=== PATIENT | male | born 1965 | race Caucasian/White ===

== ENCOUNTER 2017-11-22 21:28 | Emergency (ER) | payer MEDICARE, SELFPAY ==
[2017-11-22 21:42] VITALS: BP 114/70; PULSE 68; RESP 18; TEMP 36.4; O2SAT 100; BMI 25.4
[2017-11-23 01:13] VITALS: BP 107/62; PULSE 62; RESP 16; TEMP 36.6; O2SAT 97
--- NOTE | 2017-11-23 01:24 | ED.BACK ---
HPI - Back Pain/Injury General Chief Complaint: Back Pain/Injury Stated Complaint: BACK PAIN, NUMBNESS Time Seen by Provider: 11/23/17 01:01 Source: patient Mode of arrival: ambulatory Limitations: no limitations History of Present Illness HPI Narrative: The patient is a 52-year-old male who has a prior history of a back injury about 1 year ago his where he fractured a couple vertebrae. His today he jumped off a 2 ft plantar landed on his heels. He instantly had pain into his right lumbar area. No midline tenderness. No loss of bowel or stool. He has no heel pain MD Complaint: back pain and back injury Related Data Home Medications Medication Instructions Recorded Confirmed insulin lispro [Humalog U-100 55 unit SLIDE #0 10/07/10 Insulin] Previous Rx's Medication Instructions Recorded cyclobenzaprine 5 mg PO TID PRN #10 tab 11/23/17 Allergies Allergy/AdvReac Type Severity Reaction Status Date / Time codeine [CODEINE] Allergy Unknown Verified 11/22/17 21:45 doxycycline [DOXYCYCLINE] Allergy Unknown Verified 11/22/17 21:45 omeprazole [OMEPRAZOLE] Allergy Unknown Verified 11/22/17 21:45 NOVALOG Allergy Unknown RASH AT Uncoded 11/22/17 21:45 INJECTION SIGHT Review of Systems Constitutional Denies chills, Denies fever(s), Denies lethargy and Denies weakness Cardiovascular Denies dyspnea and Denies dyspnea on exertion Respiratory Denies cough, Denies dyspnea, Denies dyspnea on exertion and Denies wheezing Gastrointestinal Gastrointestinal: Denies abdominal pain, Denies change in bowel habits, Denies diarrhea, Denies nausea and Denies vomiting Musculoskeletal Reports as per HPI and Reports back pain Integumentary/Breasts Denies pruritus, Denies erythema, Denies rash and Denies wounds Neurologic Denies weakness Allergic/Immunologic Denies wheezing PFSH Medical History Insulin dependent diabetes mellitus (Acute) Social History Smoking Status: Former smoker alcohol intake: never substance use type: does not use Exam Initial Vital Signs Initial Vital Signs: Vital Signs Temperature 97.6 F 11/22/17 21:42 Pulse Rate 68 11/22/17 21:42 Respiratory Rate 18 11/22/17 21:42 Blood Pressure 114/70 11/22/17 21:42 Pulse Oximetry 100 11/22/17 21:42 GENERAL: Well-appearing, well-nourished and in no acute distress. CARDIOVASCULAR: peripheral pulses in tact, cap refill <2 sec RESPIRATORY: No respiratory distress, speaks in full sentences without difficulty BACK: No vertebral tenderness no step-offs. He is tender in his right lumbar area lateral. EXTREMITIES: Normal range of motion, no clubbing or edema. Neurovascularly intact. No hip pain no pelvis pain pelvis is stable NEUROLOGICAL: Cranial nerves II through XII grossly intact. Normal gait and speech. SKIN: Warm, dry, no petechiae, no rashes or lesions. Course Orders Ordered: Discontinued Medications Cyclobenzaprine HCl (Flexeril 10 Mg Prepack) 1 bottle MISC SEEINSTR ONE Stop: 11/23/17 02:14 Last Admin: 11/23/17 02:18 Dose: 1 bottle Ketorolac Tromethamine (Toradol) 30 mg IV NOW ONE Stop: 11/23/17 01:26 Last Admin: 11/23/17 01:44 Dose: 30 mg Vital Signs - 8 hr 11/22/17 21:42 11/23/17 01:13 Temperature 97.6 F 97.9 F Pulse Rate 68 62 Respiratory Rate 18 16 Blood Pressure 114/70 Blood Pressure [Left Arm] 107/62 Pulse Oximetry 100 97 MDM - Back Pain/Injury MDM Narrative Medical decision making narrative: Patient is feeling better after Toradol. He has no midline back pain. On he jumped off a small height I do not suspect any his calcaneus fracture or vertebral fracture based upon mechanism and clinical presentation and signs and symptoms Discharge Plan Departure Patient Disposition: Home, Self-Care Clinical Impression: Back pain Discharge Date/Time: 11/23/17 02:14 Interventions: ED Discharge Assessment Last Done: 11/23/17 02:14 Instructions: Low Back Pain Activity Restrictions/Additional Instructions: *You have been diagnosed with low back *What to do: Increase activity as tolerated, mild activity is encouraged heating pad for 30 min *Continue to take medications as directed Flexeril every 8 hr as needed for muscle spasm but can cause drowsiness Ibuprofen/Motrin 600 mg every 6 hr if needed pain *Follow up with your primary care provider in 2-3 days *Return to ER if you should have numbness, tingling, weakness, loss of urine stool or any new, worsening or concerning symptoms Prescriptions: New cyclobenzaprine 5 mg tablet 5 mg PO TID PRN (Reason: muscle spasm) Qty: 10 RF: 0 No Action insulin lispro [Humalog U-100 Insulin] 100 UNIT/1 ML solution 55 unit SLIDE Qty: 0 RF: 0 Referrals: Darell Allison MD [Primary Care Provider] -
[2017-11-23] MEDS: KETOROLAC 60 MG/2 ML VIAL 30 MG IV (01:44)
[2017-11-23] MEDS: CYCLOBENZAPRINE 10 MG PREPACK 1 BOTTLE MISC (02:18)
== END 2017-11-23 02:14 | disposition home or self-care (01) ==
PROVIDERS: Emergency Provider Emergency Medicine; Family Provider Family Medicine; PCP Family Medicine
DX: M54.9 Dorsalgia, unspecified (principal)
CPT/HCPCS: 82962; 96374; 99282; 99284; J1885

== ENCOUNTER 2022-07-04 12:53 | Inpatient (IN) | payer OTHER, SELFPAY ==
[2022-07-04] VITALS (41 sets, daily range): BP systolic 108–153; BP diastolic 53–97; PULSE 59–92; RESP 15–44; TEMP 36.4–37.4; O2SAT 97–100; BMI 23.7; BMI 23.9
--- NOTE | 2022-07-04 13:09 | DI.RAD.S_ITS ---
PROCEDURE: XR CHEST 1V INDICATIONS: chest pain TECHNIQUE: One view of the chest was acquired. COMPARISON: [facility], , CHEST 1 VIEW, 07/28/2016, 20:50. FINDINGS: Surgical changes and devices: None. Lungs and pleura: Lungs are clear. No pleural effusions or pneumothorax. Mediastinum: Mediastinal contours appear normal. Heart size is normal. Bones and chest wall: No suspicious bony lesions. Overlying soft tissues appear unremarkable. IMPRESSION: No acute cardiopulmonary disease. Dictated by: Van Mcleod M.D. on 07/04/2022 at 15:13 Approved by: Van Mcleod M.D. on 07/04/2022 at 15:13
--- NOTE | 2022-07-04 13:52 | ED_ITS ---
HPI - General Adult General Chief complaint: Diabetic Problem Stated complaint: chest pain/ n&v/ high glucose Time Seen by Provider: 07/04/22 13:38 Source: patient and EMS Mode of arrival: EMS History of Present Illness HPI narrative: Patient is a 56-year-old male. History of insulin-dependent diabetes. Does have a continuous glucose monitor and also an insulin pump. Has been diabetic since 1998. Is here for evaluation of a fairly sudden onset of nausea and vomiting that started just before noon today. Also having chest discomfort that he describes in his left side which is more in the left upper quadrant. No recent travel. No changes medications. No diarrhea. Is having shortness of breath. Prior to my initial evaluation patient was getting up to go to the bathroom and had what appeared to be a syncopal episode. He had another episode afterwards where he again became unresponsive in. The pass out. There was no seizure-like activity. Related Data Home Medications Medication Instructions Recorded Confirmed insulin lispro 100 unit/mL 55 unit SLIDE ##0 10/07/10 subcutaneous solution (Humalog U-100 Insulin) Previous Rx's Medication Instructions Recorded cyclobenzaprine 5 mg tablet 5 mg PO TID PRN muscle spasm #10 11/23/17 tabs Allergies Allergy/AdvReac Type Severity Reaction Status Date / Time codeine [CODEINE] Allergy Unknown Verified 07/04/22 13:06 doxycycline [DOXYCYCLINE] Allergy Unknown Verified 07/04/22 13:06 insulin aspart Allergy Unknown Rash at Verified 07/04/22 13:20 [From Novolog U-100 Insulin injection aspart] site omeprazole [OMEPRAZOLE] Allergy Unknown Verified 07/04/22 13:06 Review of Systems Review of Systems ROS Unobtainable: All systems reviewed & are unremarkable except as noted in HPI and below Patient History Medical History Insulin dependent diabetes mellitus Social History Smoking Status: Former smoker alcohol intake: never substance use type: does not use Smoking Status: Former smoker alcohol intake frequency: holidays/special occasions only Substance Use Type: marijuana Exam Initial Vital Signs Initial Vital Signs: Vital Signs Temperature 97.5 F L 07/04/22 13:06 Pulse Rate 78 07/04/22 13:06 Respiratory Rate 22 07/04/22 13:06 Blood Pressure 148/69 H 07/04/22 13:06 Pulse Oximetry 100 07/04/22 13:06 Oxygen Delivery Method Room Air 07/04/22 13:06 Const General: diaphoretic and ill appearing [facility] Head: normal to inspection and normocephalic Resp Effort & Inspection: normal respiratory effort and tachypneic Auscultation: clear to auscultation bilaterally Cardio Rate: tachycardic Rhythm: regular rhythm GI Inspection: normal to inspection and non-distended Skin General: no rashes or lesions noted Neuro General: patient alert, patient awake and moves all extremities Extrem General: capillary refill normal and No edema Psych Appearance: disheveled Scores GCS [place] coma scale eye opening: Spontaneous [place] coma scale verbal response: Confused [place] coma scale motor response: Obey commands [place] coma scale total score: 14 Course Orders Ordered: ED Orders 07/04/22 12:55 VBG [Venous Blood Gas] Stat 07/04/22 13:08 Consult to [facility] [place] - [employer] Stat 07/04/22 13:09 XR chest 1V Stat 07/04/22 13:50 Complete Blood Count AUTO DIFF Stat Comprehensive Metabolic Panel Stat Ketones (Beta-Hydroxybutyrate) Stat Lipase Stat Magnesium Stat Phosphorous Stat Troponin & CK Cardiac Panel Stat 07/04/22 13:53 EKG-12 Lead Stat 07/04/22 14:15 COVID19 -Nasal RAPID Stat 07/04/22 14:30 Blood Culture Stat 07/04/22 14:40 Urinalysis and Microscopic Stat Urine Culture Stat Urine Drug Screen, Rapid Stat 07/04/22 15:12 Arterial Blood Gas Stat 07/04/22 16:28 ETOH [Ethanol (ETOH)] Stat Troponin I Stat 07/04/22 16:50 CMP [Comprehensive Metabolic Panel] Stat Acetaminophen (Acetaminophen 325 Mg Tablet) 650 mg PO Q6H PRN PRN Reason: Fever/Mild Pain (1-3) Sodium Chloride (Normal Saline 0.9%) 1,000 mls @ 250 mls/hr IV CONT LYDIA Last Infusion: 07/04/22 18:49 Dose: 0 mls/hr Documented By: Admin: 07/04/22 15:00 Dose: 250 mls/hr Documented By: JAQUELIN INSULIN DRIP PREMIX (Myxredlin Drip Premix) 100 unit in 100 mls @ 6 mls/hr IV TITRATE LYDIA; Protocol Last Titration: 07/04/22 15:44 Dose: 12 mls/hr, 12 mls/hr Documented By: JAQUELIN Co-signed By: ROSELINE Admin: 07/04/22 15:26 Dose: 6 mls/hr, 6 mls/hr Documented By: JAQUELIN Co-signed By: JOE Ceftriaxone Sodium 1,000 mg/ (Sodium Chloride) 100 mls @ 200 mls/hr IV Q24H LYDIA Stop: 07/07/22 17:59 Ibuprofen (Ibuprofen 600 Mg Tablet) 800 mg PO Q6H PRN PRN Reason: Fever/Mild Pain (1-3) Melatonin (Melatonin 3 Mg Tablet) 6 mg PO BEDTIME PRN PRN Reason: Insomnia Metronidazole (Metronidazole 500 Mg Tablet) 500 mg PO TID LYDIA Naloxone HCl (Naloxone 0.4 Mg/Ml Vial) 0.2 mg IV Q2MIN PRN PRN Reason: Opiate Reversal Ondansetron HCl (Ondansetron 4 Mg Odt) 4 mg SL NOW PRN PRN Reason: Nausea And Vomiting Ondansetron HCl (Ondansetron 4 Mg/2 Ml Inj) 4 mg IV NOW PRN PRN Reason: Nausea And Vomiting Last Admin: 07/04/22 14:06 Dose: 4 mg Documented By: JAQUELIN Polyethylene Glycol (Polyethylene Glycol 3350 17 Gm Powd.Pack) 17 gm PO DAILY PRN PRN Reason: Constipation Sennosides (Sennosides 8.6 Mg Tablet) 8.6 mg PO BID PRN PRN Reason: Constipation Discontinued Medications Sodium Chloride (Normal Saline 0.9%) 1,000 mls @ 1,000 mls/hr IV BOLUS ONE Stop: 07/04/22 14:48 Last Infusion: 07/04/22 15:04 Dose: 0 mls/hr Documented By: Admin: 07/04/22 14:07 Dose: 1,000 mls/hr Documented By: JAQUELIN Metoclopramide HCl (Metoclopramide 10 Mg/2 Ml Inj) 10 mg IV NOW ONE Stop: 07/04/22 14:53 Last Admin: 07/04/22 15:00 Dose: 10 mg Documented By: JAQUELIN Vital Signs Vital signs: Vital Signs - 8 hr 07/04/22 13:06 07/04/22 13:37 07/04/22 13:37 Temperature 97.5 F L Pulse Rate 78 76 Respiratory Rate 22 15 Blood Pressure 148/69 H 129/63 Pulse Oximetry 100 100 Oxygen Delivery Method Room Air 07/04/22 13:40 07/04/22 13:40 07/04/22 13:45 Temperature Pulse Rate 75 Respiratory Rate 28 H Blood Pressure 139/63 141/97 H Pulse Oximetry 100 Oxygen Delivery Method 07/04/22 13:45 07/04/22 13:55 07/04/22 13:55 Temperature Pulse Rate 81 74 Respiratory Rate 44 H 27 H Blood Pressure 142/87 H Pulse Oximetry 99 100 Oxygen Delivery Method 07/04/22 14:00 07/04/22 14:00 07/04/22 14:05 Temperature Pulse Rate 75 Respiratory Rate 29 H Blood Pressure 140/61 108/53 L Pulse Oximetry 100 Oxygen Delivery Method 07/04/22 14:05 07/04/22 14:10 07/04/22 14:10 Temperature Pulse Rate 74 76 Respiratory Rate 27 H 28 H Blood Pressure 123/62 Pulse Oximetry 98 100 Oxygen Delivery Method 07/04/22 14:15 07/04/22 14:15 07/04/22 14:20 Temperature Pulse Rate 73 77 Respiratory Rate 28 H 38 H Blood Pressure 128/58 L Pulse Oximetry 100 100 Oxygen Delivery Method Room Air 07/04/22 14:20 07/04/22 14:28 07/04/22 14:28 Temperature Pulse Rate 79 Respiratory Rate 33 H Blood Pressure 144/58 H 148/67 H Pulse Oximetry 100 Oxygen Delivery Method 07/04/22 14:30 07/04/22 14:41 07/04/22 14:41 Temperature Pulse Rate 76 77 Respiratory Rate 41 H 19 Blood Pressure 121/58 L Pulse Oximetry 100 100 Oxygen Delivery Method 07/04/22 14:45 07/04/22 14:45 07/04/22 15:00 Temperature Pulse Rate 78 Respiratory Rate 20 Blood Pressure 133/61 152/61 H Pulse Oximetry 100 Oxygen Delivery Method 07/04/22 15:00 07/04/22 15:30 07/04/22 16:00 Temperature Pulse Rate 92 H 80 77 Respiratory Rate 41 H 28 H 27 H Blood Pressure Pulse Oximetry 100 100 99 Oxygen Delivery Method 07/04/22 16:30 07/04/22 17:00 07/04/22 17:30 Temperature Pulse Rate 83 76 72 Respiratory Rate 18 19 18 Blood Pressure Pulse Oximetry 97 98 Oxygen Delivery Method Medical Decision Making Medical Records Medical records reviewed: Yes I reviewed the patient's medical records. Lab Data Lab results reviewed: Yes I reviewed the patient's lab results. 07/04/22 13:50 07/04/22 16:50 Labs: Lab Results 07/04/22 07/04/22 07/04/22 Range/Units 12:55 13:50 13:50 WBC 11.2 H (4.5-11.0) X10^3/uL RBC 5.02 (4.5-5.9) X10^6/uL Hgb 14.9 (13.5-17.5) g/dL Hct 44.7 (41-53) % MCV 89.1 (80-100) fL MCH 29.7 (26-34) PG MCHC 33.3 (30-36) % RDW 13.3 (11.6-14.8) % Plt Count 243 (150-400) X10^3/uL Neut % (Auto) 90.3 H (50-75) % Lymph % (Auto) 6.4 L (25-40) % [place] % (Auto) 2.7 L (3-14) % Eos % (Auto) 0.1 L (2-4) % Baso % (Auto) 0.5 (0-2) % Neut # (Auto) 99925 H (7082-9421) /uL Lymph # (Auto) 700 L (0399-8094) /uL [place] # (Auto) 300 (0-900) /uL Eos # (Auto) 0 (0-450) /uL Baso # (Auto) 100 (0-100) /uL ABG pH (7.35-7.45) ABG pCO2 (35-45) mmHg ABG pO2 (80-100) mmHg ABG HCO3 (23-27) mmol/L ABG Total CO2 (23-27) mmol/L ABG O2 Saturation (95-100) % ABG Base Excess (-2-3) mmol/L VBG pH 7.35 (7.33-7.43) VBG pCO2 26.7 L (45-50) mmHg VBG pO2 26 L (35-45) mmHg VBG HCO3 15 L (24-28) mmol/L VBG Total CO2 16 L (24-29) mmol/L VBG O2 Saturation 46 L (70-75) % VBG Base Excess -11.0 L (0-4) mmol/L FiO2 21 Sodium 132 L (137-145) mmol/L Potassium 5.0 (3.4-5.1) mmol/L Chloride 94 L (98-107) mmol/L Carbon Dioxide 12 L (22-32) mmol/L BUN 23 H (9-20) mg/dL Creatinine 1.15 (0.66-1.25) mg/dL Estimated GFR > 60 (>60) mL/min BUN/Creatinine Ratio 20.0 (6-22) Glucose 731 H* (70-100) mg/dL Hemoglobin A1c (4.0-6.0) % Calcium 9.7 (8.4-10.2) mg/dL Phosphorus (2.5-4.5) mg/dL Magnesium 1.8 (1.6-2.3) mg/dL Total Bilirubin 2.7 H (0.2-1.3) mg/dL AST 27 (17-59) IU/L ALT 44 (<50) IU/L Alkaline Phosphatase 104 (38-126) U/L Total Creatine Kinase 57 (55-170) U/L CK-MB (CK-2) TNP CK-MB (CK-2) Rel Index TNP Troponin I < 0.012 (0.01-0.034) ng/mL Total Protein 7.8 (6.3-8.2) g/dL Albumin 4.7 (3.5-5.0) g/dL Globulin 3.1 (1.7-4.1) g/dL Albumin/Globulin Ratio 1.5 (1.0-2.8) Lipase 62 (23-300) U/L TSH (0.47-4.68) uIU/mL Urine Color Urine Appearance Urine pH (4.5-8.0) Ur Specific [place] (1.000-1.035) Urine Protein (Negative) Urine Glucose (UA) (Negative) g/dL Urine Ketones (NEGATIVE) Urine Occult Blood (Negative) Urine Nitrate (Negative) Urine Bilirubin (NEGATIVE) Urine Urobilinogen (0.2) E.U./dL Ur Leukocyte Esterase (NEGATIVE) Urine RBC (0-5/HPF) Urine WBC (0-5/HPF) Amorphous Sediment Urine Bacteria (None) Ur Culture Indicated? U Opiates 300ng/mL cut (Negative) Ur Oxycodone Screen (Negative) Urine Methadone Screen (Negative) Ur Barbiturates Screen (Negative) U Tricyclic Antidepress (Negative) Ur Phencyclidine Scrn (Negative) Ur Amphetamines Screen (Negative) U Methamphetamines Scrn (Negative) Ur MDMA Scrn (Ecstasy) (Negative) U Benzodiazepines Scrn (Negative) Urine Cocaine Screen (Negative) U Marijuana (THC) Screen (Negative) Ethyl Alcohol ( - 10) mg/dL Ketones (<0.27) mmol/L SARS-CoV-2 (PCR) (Negative) 07/04/22 07/04/22 07/04/22 Range/Units 13:50 13:50 13:50 WBC (4.5-11.0) X10^3/uL RBC (4.5-5.9) X10^6/uL Hgb (13.5-17.5) g/dL Hct (41-53) % MCV (80-100) fL MCH (26-34) PG MCHC (30-36) % RDW (11.6-14.8) % Plt Count (150-400) X10^3/uL Neut % (Auto) (50-75) % Lymph % (Auto) (25-40) % [place] % (Auto) (3-14) % Eos % (Auto) (2-4) % Baso % (Auto) (0-2) % Neut # (Auto) (2778-7158) /uL Lymph # (Auto) (0295-9959) /uL [place] # (Auto) (0-900) /uL Eos # (Auto) (0-450) /uL Baso # (Auto) (0-100) /uL ABG pH (7.35-7.45) ABG pCO2 (35-45) mmHg ABG pO2 (80-100) mmHg ABG HCO3 (23-27) mmol/L ABG Total CO2 (23-27) mmol/L ABG O2 Saturation (95-100) % ABG Base Excess (-2-3) mmol/L VBG pH (7.33-7.43) VBG pCO2 (45-50) mmHg VBG pO2 (35-45) mmHg VBG HCO3 (24-28) mmol/L VBG Total CO2 (24-29) mmol/L VBG O2 Saturation (70-75) % VBG Base Excess (0-4) mmol/L FiO2 Sodium (137-145) mmol/L Potassium (3.4-5.1) mmol/L Chloride (98-107) mmol/L Carbon Dioxide (22-32) mmol/L BUN (9-20) mg/dL Creatinine (0.66-1.25) mg/dL Estimated GFR (>60) mL/min BUN/Creatinine Ratio (6-22) Glucose (70-100) mg/dL Hemoglobin A1c 9.5 H (4.0-6.0) % Calcium (8.4-10.2) mg/dL Phosphorus 3.6 (2.5-4.5) mg/dL Magnesium (1.6-2.3) mg/dL Total Bilirubin (0.2-1.3) mg/dL AST (17-59) IU/L ALT (<50) IU/L Alkaline Phosphatase (38-126) U/L Total Creatine Kinase (55-170) U/L CK-MB (CK-2) CK-MB (CK-2) Rel Index Troponin I (0.01-0.034) ng/mL Total Protein (6.3-8.2) g/dL Albumin (3.5-5.0) g/dL Globulin (1.7-4.1) g/dL Albumin/Globulin Ratio (1.0-2.8) Lipase (23-300) U/L TSH 2.80 (0.47-4.68) uIU/mL Urine Color Urine Appearance Urine pH (4.5-8.0) Ur Specific [place] (1.000-1.035) Urine Protein (Negative) Urine Glucose (UA) (Negative) g/dL Urine Ketones (NEGATIVE) Urine Occult Blood (Negative) Urine Nitrate (Negative) Urine Bilirubin (NEGATIVE) Urine Urobilinogen (0.2) E.U./dL Ur Leukocyte Esterase (NEGATIVE) Urine RBC (0-5/HPF) Urine WBC (0-5/HPF) Amorphous Sediment Urine Bacteria (None) Ur Culture Indicated? U Opiates 300ng/mL cut (Negative) Ur Oxycodone Screen (Negative) Urine Methadone Screen (Negative) Ur Barbiturates Screen (Negative) U Tricyclic Antidepress (Negative) Ur Phencyclidine Scrn (Negative) Ur Amphetamines Screen (Negative) U Methamphetamines Scrn (Negative) Ur MDMA Scrn (Ecstasy) (Negative) U Benzodiazepines Scrn (Negative) Urine Cocaine Screen (Negative) U Marijuana (THC) Screen (Negative) Ethyl Alcohol ( - 10) mg/dL Ketones 6.46 H (<0.27) mmol/L SARS-CoV-2 (PCR) (Negative) 07/04/22 07/04/22 07/04/22 Range/Units 14:15 14:40 14:40 WBC (4.5-11.0) X10^3/uL RBC (4.5-5.9) X10^6/uL Hgb (13.5-17.5) g/dL Hct (41-53) % MCV (80-100) fL MCH (26-34) PG MCHC (30-36) % RDW (11.6-14.8) % Plt Count (150-400) X10^3/uL Neut % (Auto) (50-75) % Lymph % (Auto) (25-40) % [place] % (Auto) (3-14) % Eos % (Auto) (2-4) % Baso % (Auto) (0-2) % Neut # (Auto) (9301-4520) /uL Lymph # (Auto) (8666-1657) /uL [place] # (Auto) (0-900) /uL Eos # (Auto) (0-450) /uL Baso # (Auto) (0-100) /uL ABG pH (7.35-7.45) ABG pCO2 (35-45) mmHg ABG pO2 (80-100) mmHg ABG HCO3 (23-27) mmol/L ABG Total CO2 (23-27) mmol/L ABG O2 Saturation (95-100) % ABG Base Excess (-2-3) mmol/L VBG pH (7.33-7.43) VBG pCO2 (45-50) mmHg VBG pO2 (35-45) mmHg VBG HCO3 (24-28) mmol/L VBG Total CO2 (24-29) mmol/L VBG O2 Saturation (70-75) % VBG Base Excess (0-4) mmol/L FiO2 Sodium (137-145) mmol/L Potassium (3.4-5.1) mmol/L Chloride (98-107) mmol/L Carbon Dioxide (22-32) mmol/L BUN (9-20) mg/dL Creatinine (0.66-1.25) mg/dL Estimated GFR (>60) mL/min BUN/Creatinine Ratio (6-22) Glucose (70-100) mg/dL Hemoglobin A1c (4.0-6.0) % Calcium (8.4-10.2) mg/dL Phosphorus (2.5-4.5) mg/dL Magnesium (1.6-2.3) mg/dL Total Bilirubin (0.2-1.3) mg/dL AST (17-59) IU/L ALT (<50) IU/L Alkaline Phosphatase (38-126) U/L Total Creatine Kinase (55-170) U/L CK-MB (CK-2) CK-MB (CK-2) Rel Index Troponin I (0.01-0.034) ng/mL Total Protein (6.3-8.2) g/dL Albumin (3.5-5.0) g/dL Globulin (1.7-4.1) g/dL Albumin/Globulin Ratio (1.0-2.8) Lipase (23-300) U/L TSH (0.47-4.68) uIU/mL Urine Color Yellow Urine Appearance Clear Urine pH 6.0 (4.5-8.0) Ur Specific [place] 1.010 (1.000-1.035) Urine Protein Negative (Negative) Urine Glucose (UA) 3+ H (Negative) g/dL Urine Ketones 3+ H (NEGATIVE) Urine Occult Blood Negative (Negative) Urine Nitrate Negative (Negative) Urine Bilirubin Negative (NEGATIVE) Urine Urobilinogen 0.2 (0.2) E.U./dL Ur Leukocyte Esterase Negative (NEGATIVE) Urine RBC None seen (0-5/HPF) Urine WBC None seen (0-5/HPF) Amorphous Sediment 1+ Urine Bacteria None seen (None) Ur Culture Indicated? Cult not indicated U Opiates 300ng/mL cut Negative (Negative) Ur Oxycodone Screen Negative (Negative) Urine Methadone Screen Negative (Negative) Ur Barbiturates Screen Negative (Negative) U Tricyclic Antidepress Negative (Negative) Ur Phencyclidine Scrn Negative (Negative) Ur Amphetamines Screen Negative (Negative) U Methamphetamines Scrn Negative (Negative) Ur MDMA Scrn (Ecstasy) Negative (Negative) U Benzodiazepines Scrn Negative (Negative) Urine Cocaine Screen Negative (Negative) U Marijuana (THC) Screen Positive H (Negative) Ethyl Alcohol ( - 10) mg/dL Ketones (<0.27) mmol/L SARS-CoV-2 (PCR) Negative (Negative) 07/04/22 07/04/22 07/04/22 Range/Units 15:12 16:28 16:50 WBC (4.5-11.0) X10^3/uL RBC (4.5-5.9) X10^6/uL Hgb (13.5-17.5) g/dL Hct (41-53) % MCV (80-100) fL MCH (26-34) PG MCHC (30-36) % RDW (11.6-14.8) % Plt Count (150-400) X10^3/uL Neut % (Auto) (50-75) % Lymph % (Auto) (25-40) % [place] % (Auto) (3-14) % Eos % (Auto) (2-4) % Baso % (Auto) (0-2) % Neut # (Auto) (8837-6789) /uL Lymph # (Auto) (0692-0345) /uL [place] # (Auto) (0-900) /uL Eos # (Auto) (0-450) /uL Baso # (Auto) (0-100) /uL ABG pH 7.27 L* (7.35-7.45) ABG pCO2 24.9 L* (35-45) mmHg ABG pO2 99 (80-100) mmHg ABG HCO3 12 L (23-27) mmol/L ABG Total CO2 12 L (23-27) mmol/L ABG O2 Saturation 97 (95-100) % ABG Base Excess -15.0 L (-2-3) mmol/L VBG pH (7.33-7.43) VBG pCO2 (45-50) mmHg VBG pO2 (35-45) mmHg VBG HCO3 (24-28) mmol/L VBG Total CO2 (24-29) mmol/L VBG O2 Saturation (70-75) % VBG Base Excess (0-4) mmol/L FiO2 21 Sodium 136 L (137-145) mmol/L Potassium 4.4 (3.4-5.1) mmol/L Chloride 103 (98-107) mmol/L Carbon Dioxide 8 L* (22-32) mmol/L BUN 24 H (9-20) mg/dL Creatinine 1.12 (0.66-1.25) mg/dL Estimated GFR > 60 (>60) mL/min BUN/Creatinine Ratio 21.4 (6-22) Glucose 532 H* (70-100) mg/dL Hemoglobin A1c (4.0-6.0) % Calcium 8.8 (8.4-10.2) mg/dL Phosphorus (2.5-4.5) mg/dL Magnesium (1.6-2.3) mg/dL Total Bilirubin 2.2 H (0.2-1.3) mg/dL AST 30 (17-59) IU/L ALT 40 (<50) IU/L Alkaline Phosphatase 79 (38-126) U/L Total Creatine Kinase (55-170) U/L CK-MB (CK-2) CK-MB (CK-2) Rel Index Troponin I < 0.012 (0.01-0.034) ng/mL Total Protein 6.9 (6.3-8.2) g/dL Albumin 4.1 (3.5-5.0) g/dL Globulin 2.8 (1.7-4.1) g/dL Albumin/Globulin Ratio 1.5 (1.0-2.8) Lipase (23-300) U/L TSH (0.47-4.68) uIU/mL Urine Color Urine Appearance Urine pH (4.5-8.0) Ur Specific [place] (1.000-1.035) Urine Protein (Negative) Urine Glucose (UA) (Negative) g/dL Urine Ketones (NEGATIVE) Urine Occult Blood (Negative) Urine Nitrate (Negative) Urine Bilirubin (NEGATIVE) Urine Urobilinogen (0.2) E.U./dL Ur Leukocyte Esterase (NEGATIVE) Urine RBC (0-5/HPF) Urine WBC (0-5/HPF) Amorphous Sediment Urine Bacteria (None) Ur Culture Indicated? U Opiates 300ng/mL cut (Negative) Ur Oxycodone Screen (Negative) Urine Methadone Screen (Negative) Ur Barbiturates Screen (Negative) U Tricyclic Antidepress (Negative) Ur Phencyclidine Scrn (Negative) Ur Amphetamines Screen (Negative) U Methamphetamines Scrn (Negative) Ur MDMA Scrn (Ecstasy) (Negative) U Benzodiazepines Scrn (Negative) Urine Cocaine Screen (Negative) U Marijuana (THC) Screen (Negative) Ethyl Alcohol < 10 ( - 10) mg/dL Ketones (<0.27) mmol/L SARS-CoV-2 (PCR) (Negative) Point of Care Testing Glucose POC 367 Point of care testing: Point of Care Testing Glucose POC 367 Imaging Data Chest x-ray: Radiologist's Impression: PROCEDURE:? XR CHEST 1V ? INDICATIONS:? chest pain ? TECHNIQUE:? One view of the chest was acquired.? ? COMPARISON:? [facility], , CHEST 1 VIEW, 07/28/2016, 20:50. ? FINDINGS:? ? Surgical changes and devices:? None.? ? Lungs and pleura:? Lungs are clear.? No pleural effusions or pneumothorax.? ? Mediastinum:? Mediastinal contours appear normal.? Heart size is normal.? ? Bones and chest wall:? No suspicious bony lesions.? Overlying soft tissues appear unremarkable.? ? IMPRESSION:? No acute cardiopulmonary disease. ECG Data Attestation: I personally reviewed and interpreted this ECG as follows: Interpretation: Initial EKG Sinus rhythm Ventricular rate is 73 Normal axis Normal QRS QTC [address] T wave changes Repeat EKG Sinus rhythm Ventricular rate is 76 Normal axis Normal QRS QTC [address] T wave changes Relatively unchanged from initial EKG MDM Narrative Medical decision making narrative: Patient is in DKA with an anion gap of 26. Hyperglycemic. His vomiting. No specific source of infection found. The 2 episodes where he became syncopal here in the emergency department is more consistent with a vasovagal syncope. Low suspicion for CVA. His troponins are negative x2. Patient does not have pancreatitis. Has a soft abdomen. Patient was started on fluids and then insulin drip. Patient does require admission to the hospital for his presenting symptoms. Discussed case with Dr. Stevenson on-call for Internal Medicine who will admit. Critical Care Time Critical Care Time Critical Care Time: Yes Total Critical Care Time: 40 Attestation: The high probability of a clinically significant, sudden or life threatening deterioration of the [endocrine, respiratory, cardiovascular] system(s) required my full and direct attention, intervention and personal management. The aggregate critical care time was [40] minutes. This time is in addition to time spent performing reported procedures but includes the following: [x] Data Review and interpretation [x] Patient assessment and monitoring of vital signs [x] Documentation x[] Medication orders and management Discharge Plan Departure Patient Disposition: Home Clinical Impression: Heart failure, Hypoxia, Back pain
[2022-07-04 14:02] LABS: Add Manual Diff / Slide Review NO; Basophils Absolute Auto 100 /uL (0-100); Basophils Percent Auto 0.5 % (0-2); Eosinophils Absolute Auto 0 /uL (0-450); Eosinophils Percent Auto 0.1 % (2-4); Hematocrit 44.7 % (41-53); Hemoglobin 14.9 g/dL (13.5-17.5); Lymphocytes Absolute Auto 700 /uL (1100-4500); Lymphocytes Percent Auto 6.4 % (25-40); Mean Corpuscular HGB Conc 33.3 % (30-36); Mean Corpuscular Hemoglobin 29.7 PG (26-34); Mean Corpuscular Volume 89.1 fL (80-100); Monocytes Absolute Auto 300 /uL (0-900); Monocytes Percent Auto 2.7 % (3-14); Neutrophils Absolute Auto 10100 /uL (1500-7000); Neutrophils Percent Auto 90.3 % (50-75); Platelet Count 243 X10^3/uL (150-400); Red Blood Cell Count 5.02 X10^6/uL (4.5-5.9); Red Cell Distribution Width 13.3 % (11.6-14.8); White Blood Cell Count 11.2 X10^3/uL (4.5-11.0)
[2022-07-04] MEDS: ONDANSETRON 4 MG/2 ML INJ IV (14:06)
[2022-07-04] MEDS: SODIUM CHLORIDE 0.9% 1,000 ML 1000 ML IV (14:07)
[2022-07-04 14:08] LABS: Fractionated Inspired Oxygen 21; HCO3 VBG 15 mmol/L (24-28); Oxygen Saturation VBG 46 % (70-75); PCO2 VBG 26.7 mmHg (45-50); PO2 VBG 26 mmHg (35-45); Total CO2 VBG 16 mmol/L (24-29); pH VBG 7.35 (7.33-7.43)
[2022-07-04 14:18] LABS: Phosphorous 3.6 mg/dL (2.5-4.5)
[2022-07-04 14:19] LABS: Alanine Aminotransferase 44 IU/L (<50); Albumin 4.7 g/dL (3.5-5.0); Albumin Globulin Ratio 1.5 (1.0-2.8); Alkaline Phosphatase 104 U/L (38-126); Aspartate Aminotransferase 27 IU/L (17-59); Bilirubin Total 2.7 mg/dL (0.2-1.3); Blood Urea Nitrogen 23 mg/dL (9-20); Calcium 9.7 mg/dL (8.4-10.2); Carbon Dioxide 12 mmol/L (22-32); Chloride 94 mmol/L (98-107); Creatine Kinase 57 U/L (55-170); Estimated Glomerular Filt Rate > 60 mL/min (>60); Globulin 3.1 g/dL (1.7-4.1); HEMOLYSIS < 15 (0-50); Lipase 62 U/L (23-300); Magnesium 1.8 mg/dL (1.6-2.3); Sodium 132 mmol/L (137-145); Total Protein 7.8 g/dL (6.3-8.2)
[2022-07-04 14:23] LABS: Ketones (Beta-Hydroxybutyrate) 6.46 mmol/L (<0.27)
[2022-07-04 14:37] LABS: COVID19 -Nasal RAPID Negative (Negative)
[2022-07-04 14:43] LABS: Glucose 731 mg/dL (70-100)
[2022-07-04 14:51] LABS: Appearance Urine UA CLEAR; Bilirubin Urine UA NEGATIVE (NEGATIVE); Color Urine UA YELLOW; Glucose Urine UA 3+ g/dL (Negative); Ketones Urine UA 3+ (NEGATIVE); Leukocyte Esterase Urine UA NEGATIVE (NEGATIVE); Nitrite Urine UA NEGATIVE (Negative); Occult Blood Urine UA NEGATIVE (Negative); Protein Urine UA NEGATIVE (Negative); Urobilinogen Urine UA 0.2 E.U./dL (0.2)
[2022-07-04 14:59] LABS: Amorphous Sediment Urine 1+; Bacteria Urine None Seen; Culture Indicated Urine Cult Not Indicated; RBC Urine None Seen (0-5/HPF); WBC Urine None Seen (0-5/HPF)
[2022-07-04] MEDS: METOCLOPRAMIDE 10 MG/2 ML INJ IV (15:00)
[2022-07-04] MEDS: SODIUM CHLORIDE 0.9% 1,000 ML 250 ML IV (15:00)
[2022-07-04 15:01] LABS: Ur Creatinine Normal (Normal); Ur Specific Gravity Normal (Normal); Urine Tetrahydrocannabinol Positive (Negative); Urine pH Normal (Normal)
[2022-07-04 15:02] LABS: UR Morphine/Opiate cutoff 300 Negative (Negative); Urine Amphetamines Negative (Negative); Urine Barbiturates Negative (Negative); Urine Benzodiazepines Negative (Negative); Urine Cocaine Negative (Negative); Urine MDMA Negative (Negative); Urine Methadone Negative (Negative); Urine Methamphetamines Negative (Negative); Urine Oxycodone Negative (Negative); Urine Phencyclidine Negative (Negative); Urine Tricyclic Antidepressant Negative (Negative)
[2022-07-04 15:26] LABS: pH ABG 7.27 (7.35-7.45)
[2022-07-04] MEDS: INSULIN DRIP PREMIX 100 UNIT/100 ML PLAST..BAG 6 UNIT IV (15:26)
[2022-07-04 15:27] LABS: Fractionated Inspired Oxygen 21; HCO3 ABG 12 mmol/L (23-27); Oxygen Saturation ABG 97 % (95-100); PCO2 ABG 24.9 mmHg (35-45); PO2 ABG 99 mmHg (80-100); TCO2 ABG 12 mmol/L (23-27)
[2022-07-04 15:48] LABS: Troponin I < 0.012 ng/mL (0.01-0.034)
[2022-07-04 16:50] LABS: Ethanol (ETOH) < 10 mg/dL
[2022-07-04 17:03] LABS: Troponin I < 0.012 ng/mL (0.01-0.034)
[2022-07-04 17:26] LABS: Alanine Aminotransferase 40 IU/L (<50); Albumin 4.1 g/dL (3.5-5.0); Albumin Globulin Ratio 1.5 (1.0-2.8); Alkaline Phosphatase 79 U/L (38-126); Aspartate Aminotransferase 30 IU/L (17-59); BUN Creatinine Ratio 21.4 (6-22); Bilirubin Total 2.2 mg/dL (0.2-1.3); Blood Urea Nitrogen 24 mg/dL (9-20); Calcium 8.8 mg/dL (8.4-10.2); Chloride 103 mmol/L (98-107); Estimated Glomerular Filt Rate > 60 mL/min (>60); Globulin 2.8 g/dL (1.7-4.1); Potassium 4.4 mmol/L (3.4-5.1); Sodium 136 mmol/L (137-145); Total Protein 6.9 g/dL (6.3-8.2)
[2022-07-04 17:31] LABS: HEMOLYSIS 64 (0-50)
[2022-07-04 17:33] LABS: Carbon Dioxide 8 mmol/L (22-32); Glucose 532 mg/dL (70-100)
[2022-07-04 18:20] LABS: Hemoglobin A1C% w Est Avg Glu 9.5 % (4.0-6.0)
--- NOTE | 2022-07-04 19:34 | PM.HP.1 ---
History of Present Illness History of Present Illness Date Patient Seen: 07/04/22 Time Patient Seen: 19:34 Chief complaint: chest pain/ n&v/ high glucose Narrative: Niels Blackwood is a 56-year-old male with past medical history of type 1 diabetes with 3 DKA episodes in the past 6 months who presents with DKA. Anion gap 26, bicarb of 12. Patient states he woke up this morning feeling fine, then ate some breakfast and noticed her BG of >400 so he bolused some insulin through his insulin pump. He then began to feel worse with diaphoresis so came to the ED. He denies any issues with his insulin pump but says he noticed his roommates had turned down the fridge temp so it was at 42 degrees and his insulin is supposed to stay above 45 degrees. He also notes he has had a toothache for the past week. Hasn't seen a dentist due to his social security check being late. He is currently on an insulin drip and is asking for water and feels slightly hungry. He also notes some left CP below his nipple which he says always happens when I have DKA. The CP lasted a few hours then went away with treatment in the ED. He denies NV, SOB, abd pain, dysuria or diarrhea. Patient History Medical History Insulin dependent diabetes mellitus Family & Social History Safety & Behavioral: Feels Safe in Current Yes Environment Tobacco & Substance use: Smoking Status Former smoker alcohol intake never alcohol intake frequency holiday/special occasion Substance Use Type marijuana Meds Home Medications and Allergies Home Medications Medication Instructions Recorded Confirmed Type insulin lispro 100 unit/mL 55 unit SLIDE ##0 10/07/10 History subcutaneous solution (Humalog U-100 Insulin) cyclobenzaprine 5 mg tablet 5 mg PO TID PRN muscle spasm #10 11/23/17 Rx tabs Allergies Allergy/AdvReac Type Severity Reaction Status Date / Time codeine [CODEINE] Allergy Unknown Verified 07/04/22 13:06 doxycycline [DOXYCYCLINE] Allergy Unknown Verified 07/04/22 13:06 insulin aspart Allergy Unknown Rash at Verified 07/04/22 13:20 [From Novolog U-100 Insulin injection aspart] site omeprazole [OMEPRAZOLE] Allergy Unknown Verified 07/04/22 13:06 Review of Systems Review of Systems Narrative: All other systems reviewed with the patient and are negative unless otherwise stated. Exam Vital Signs (past 8 hours): - 07/04/22 13:06 07/04/22 13:37 07/04/22 13:37 Temperature 97.5 F L Pulse Rate 78 76 Respiratory Rate 22 15 Blood Pressure 148/69 H 129/63 Pulse Oximetry 100 100 Oxygen Delivery Method Room Air 07/04/22 13:40 07/04/22 13:40 07/04/22 13:45 Temperature Pulse Rate 75 Respiratory Rate 28 H Blood Pressure 139/63 141/97 H Pulse Oximetry 100 Oxygen Delivery Method 07/04/22 13:45 07/04/22 13:55 07/04/22 13:55 Temperature Pulse Rate 81 74 Respiratory Rate 44 H 27 H Blood Pressure 142/87 H Pulse Oximetry 99 100 Oxygen Delivery Method 07/04/22 14:00 07/04/22 14:00 07/04/22 14:05 Temperature Pulse Rate 75 Respiratory Rate 29 H Blood Pressure 140/61 108/53 L Pulse Oximetry 100 Oxygen Delivery Method 07/04/22 14:05 07/04/22 14:10 07/04/22 14:10 Temperature Pulse Rate 74 76 Respiratory Rate 27 H 28 H Blood Pressure 123/62 Pulse Oximetry 98 100 Oxygen Delivery Method 07/04/22 14:15 07/04/22 14:15 07/04/22 14:20 Temperature Pulse Rate 73 77 Respiratory Rate 28 H 38 H Blood Pressure 128/58 L Pulse Oximetry 100 100 Oxygen Delivery Method Room Air 07/04/22 14:20 07/04/22 14:28 07/04/22 14:28 Temperature Pulse Rate 79 Respiratory Rate 33 H Blood Pressure 144/58 H 148/67 H Pulse Oximetry 100 Oxygen Delivery Method 07/04/22 14:30 07/04/22 14:41 07/04/22 14:41 Temperature Pulse Rate 76 77 Respiratory Rate 41 H 19 Blood Pressure 121/58 L Pulse Oximetry 100 100 Oxygen Delivery Method 07/04/22 14:45 07/04/22 14:45 07/04/22 15:00 Temperature Pulse Rate 78 Respiratory Rate 20 Blood Pressure 133/61 152/61 H Pulse Oximetry 100 Oxygen Delivery Method 07/04/22 15:00 07/04/22 15:30 07/04/22 16:00 Temperature Pulse Rate 92 H 80 77 Respiratory Rate 41 H 28 H 27 H Blood Pressure Pulse Oximetry 100 100 99 Oxygen Delivery Method 07/04/22 16:30 07/04/22 17:00 07/04/22 17:30 Temperature Pulse Rate 83 76 72 Respiratory Rate 18 19 18 Blood Pressure Pulse Oximetry 97 98 Oxygen Delivery Method Oxygen Delivery Method Room Air Narrative Exam Narrative: GEN: no acute distress HEENT: moist mucous membranes, PERRL NECK: trachea midline, no JVD CV: regular rate and rhythm, no murmurs PULM: clear bilaterally ABD: soft, nontender, nondistended, no organomegaly EXT: warm and well perfused with no edema NEURO: awake, alert, oriented, no focal deficits Objective Labs 07/04/22 13:50 07/04/22 16:50 Labs: Laboratory Results - last 24 hr 07/04/22 07/04/22 07/04/22 12:55 13:50 13:50 WBC 11.2 H RBC 5.02 Hgb 14.9 Hct 44.7 MCV 89.1 MCH 29.7 MCHC 33.3 RDW 13.3 Plt Count 243 Neut % (Auto) 90.3 H Lymph % (Auto) 6.4 L Day % (Auto) 2.7 L Eos % (Auto) 0.1 L Baso % (Auto) 0.5 Neut # (Auto) 12471 H Lymph # (Auto) 700 L Day # (Auto) 300 Eos # (Auto) 0 Baso # (Auto) 100 ABG pH ABG pCO2 ABG pO2 ABG HCO3 ABG Total CO2 ABG O2 Saturation ABG Base Excess VBG pH 7.35 VBG pCO2 26.7 L VBG pO2 26 L VBG HCO3 15 L VBG Total CO2 16 L VBG O2 Saturation 46 L VBG Base Excess -11.0 L FiO2 21 Sodium 132 L Potassium 5.0 Chloride 94 L Carbon Dioxide 12 L BUN 23 H Creatinine 1.15 Estimated GFR > 60 BUN/Creatinine Ratio 20.0 Glucose 731 H* Hemoglobin A1c Calcium 9.7 Phosphorus Magnesium 1.8 Total Bilirubin 2.7 H AST 27 ALT 44 Alkaline Phosphatase 104 Total Creatine Kinase 57 CK-MB (CK-2) TNP CK-MB (CK-2) Rel Index TNP Troponin I < 0.012 Total Protein 7.8 Albumin 4.7 Globulin 3.1 Albumin/Globulin Ratio 1.5 Lipase 62 TSH Urine Color Urine Appearance Urine pH Ur Specific [place] Urine Protein Urine Glucose (UA) Urine Ketones Urine Occult Blood Urine Nitrate Urine Bilirubin Urine Urobilinogen Ur Leukocyte Esterase Urine RBC Urine WBC Amorphous Sediment Urine Bacteria Ur Culture Indicated? U Opiates 300ng/mL cut Ur Oxycodone Screen Urine Methadone Screen Ur Barbiturates Screen U Tricyclic Antidepress Ur Phencyclidine Scrn Ur Amphetamines Screen U Methamphetamines Scrn Ur MDMA Scrn (Ecstasy) U Benzodiazepines Scrn Urine Cocaine Screen U Marijuana (THC) Screen Ethyl Alcohol Ketones SARS-CoV-2 (PCR) 07/04/22 07/04/22 07/04/22 13:50 13:50 13:50 WBC RBC Hgb Hct MCV MCH MCHC RDW Plt Count Neut % (Auto) Lymph % (Auto) Day % (Auto) Eos % (Auto) Baso % (Auto) Neut # (Auto) Lymph # (Auto) Day # (Auto) Eos # (Auto) Baso # (Auto) ABG pH ABG pCO2 ABG pO2 ABG HCO3 ABG Total CO2 ABG O2 Saturation ABG Base Excess VBG pH VBG pCO2 VBG pO2 VBG HCO3 VBG Total CO2 VBG O2 Saturation VBG Base Excess FiO2 Sodium Potassium Chloride Carbon Dioxide BUN Creatinine Estimated GFR BUN/Creatinine Ratio Glucose Hemoglobin A1c 9.5 H Calcium Phosphorus 3.6 Magnesium Total Bilirubin AST ALT Alkaline Phosphatase Total Creatine Kinase CK-MB (CK-2) CK-MB (CK-2) Rel Index Troponin I Total Protein Albumin Globulin Albumin/Globulin Ratio Lipase TSH 2.80 Urine Color Urine Appearance Urine pH Ur Specific [place] Urine Protein Urine Glucose (UA) Urine Ketones Urine Occult Blood Urine Nitrate Urine Bilirubin Urine Urobilinogen Ur Leukocyte Esterase Urine RBC Urine WBC Amorphous Sediment Urine Bacteria Ur Culture Indicated? U Opiates 300ng/mL cut Ur Oxycodone Screen Urine Methadone Screen Ur Barbiturates Screen U Tricyclic Antidepress Ur Phencyclidine Scrn Ur Amphetamines Screen U Methamphetamines Scrn Ur MDMA Scrn (Ecstasy) U Benzodiazepines Scrn Urine Cocaine Screen U Marijuana (THC) Screen Ethyl Alcohol Ketones 6.46 H SARS-CoV-2 (PCR) 07/04/22 07/04/22 07/04/22 14:15 14:40 14:40 WBC RBC Hgb Hct MCV MCH MCHC RDW Plt Count Neut % (Auto) Lymph % (Auto) Day % (Auto) Eos % (Auto) Baso % (Auto) Neut # (Auto) Lymph # (Auto) Day # (Auto) Eos # (Auto) Baso # (Auto) ABG pH ABG pCO2 ABG pO2 ABG HCO3 ABG Total CO2 ABG O2 Saturation ABG Base Excess VBG pH VBG pCO2 VBG pO2 VBG HCO3 VBG Total CO2 VBG O2 Saturation VBG Base Excess FiO2 Sodium Potassium Chloride Carbon Dioxide BUN Creatinine Estimated GFR BUN/Creatinine Ratio Glucose Hemoglobin A1c Calcium Phosphorus Magnesium Total Bilirubin AST ALT Alkaline Phosphatase Total Creatine Kinase CK-MB (CK-2) CK-MB (CK-2) Rel Index Troponin I Total Protein Albumin Globulin Albumin/Globulin Ratio Lipase TSH Urine Color Yellow Urine Appearance Clear Urine pH 6.0 Ur Specific [place] 1.010 Urine Protein Negative Urine Glucose (UA) 3+ H Urine Ketones 3+ H Urine Occult Blood Negative Urine Nitrate Negative Urine Bilirubin Negative Urine Urobilinogen 0.2 Ur Leukocyte Esterase Negative Urine RBC None seen Urine WBC None seen Amorphous Sediment 1+ Urine Bacteria None seen Ur Culture Indicated? Cult not indicated U Opiates 300ng/mL cut Negative Ur Oxycodone Screen Negative Urine Methadone Screen Negative Ur Barbiturates Screen Negative U Tricyclic Antidepress Negative Ur Phencyclidine Scrn Negative Ur Amphetamines Screen Negative U Methamphetamines Scrn Negative Ur MDMA Scrn (Ecstasy) Negative U Benzodiazepines Scrn Negative Urine Cocaine Screen Negative U Marijuana (THC) Screen Positive H Ethyl Alcohol Ketones SARS-CoV-2 (PCR) Negative 07/04/22 07/04/22 07/04/22 15:12 16:28 16:50 WBC RBC Hgb Hct MCV MCH MCHC RDW Plt Count Neut % (Auto) Lymph % (Auto) Day % (Auto) Eos % (Auto) Baso % (Auto) Neut # (Auto) Lymph # (Auto) Day # (Auto) Eos # (Auto) Baso # (Auto) ABG pH 7.27 L* ABG pCO2 24.9 L* ABG pO2 99 ABG HCO3 12 L ABG Total CO2 12 L ABG O2 Saturation 97 ABG Base Excess -15.0 L VBG pH VBG pCO2 VBG pO2 VBG HCO3 VBG Total CO2 VBG O2 Saturation VBG Base Excess FiO2 21 Sodium 136 L Potassium 4.4 Chloride 103 Carbon Dioxide 8 L* BUN 24 H Creatinine 1.12 Estimated GFR > 60 BUN/Creatinine Ratio 21.4 Glucose 532 H* Hemoglobin A1c Calcium 8.8 Phosphorus Magnesium Total Bilirubin 2.2 H AST 30 ALT 40 Alkaline Phosphatase 79 Total Creatine Kinase CK-MB (CK-2) CK-MB (CK-2) Rel Index Troponin I < 0.012 Total Protein 6.9 Albumin 4.1 Globulin 2.8 Albumin/Globulin Ratio 1.5 Lipase TSH Urine Color Urine Appearance Urine pH Ur Specific [place] Urine Protein Urine Glucose (UA) Urine Ketones Urine Occult Blood Urine Nitrate Urine Bilirubin Urine Urobilinogen Ur Leukocyte Esterase Urine RBC Urine WBC Amorphous Sediment Urine Bacteria Ur Culture Indicated? U Opiates 300ng/mL cut Ur Oxycodone Screen Urine Methadone Screen Ur Barbiturates Screen U Tricyclic Antidepress Ur Phencyclidine Scrn Ur Amphetamines Screen U Methamphetamines Scrn Ur MDMA Scrn (Ecstasy) U Benzodiazepines Scrn Urine Cocaine Screen U Marijuana (THC) Screen Ethyl Alcohol < 10 Ketones SARS-CoV-2 (PCR) Assessment & Plan Assessment & Plan narrative: # acute DKA -blood sugar 731 on admission, anion gap 26, bicarb 12, ketones positive at 6.46 -on insulin protocol -tele ICU consulted -transition to subcutaneous insulin once gap closes # type 1 diabetes -A1c 9.5% -dietitian consulted # toothache -unclear if he has dental infection which triggered the DKA, as he is noticed a toothache for 1 week -continue Rocephin and Flagyl Code status is full code. COVID negative. DVT prophylaxis with SCDs. Proxy is Alida. I have reviewed home meds and used all available resources to reconcile the home meds. I spent a total of 35 minutes of critical care time on this patient's care today; this time is exclusive of procedural time. This patient will be admitted as ICU and will require greater than 2 midnights of hospital time to treat DKA. Time Spent With Patient Critical Care time: I spent a total of [] minutes of critical care time on this patient's care today; this time is exclusive of procedural time.
--- NOTE | 2022-07-04 20:13 | PM.CN.EICU ---
History of Present Illness Consult details IF CAMERA ACTIVATED, patient seen via real-time interactive audiovisual communication: Camera activated Chief complaint: chest pain/ n&v/ high glucose Consent obtained for tele-wrapper hand care: Yes Patient Location: ICU Provider location (State): [place] Other participants/roles: Dr. Stevenson [facility] Medical History Insulin dependent diabetes mellitus Social History household members: spouse Smoking Status: Former smoker alcohol intake: current substance use type: does not use Current Medications Current Medications Medications: Home Medications insulin lispro 100 unit/mL subcutaneous solution (Humalog U-100 Insulin) See Rx Instructions .Route .COMPLEX ##0 10/07/10 [History Confirmed 07/04/22] atorvastatin 40 mg tablet 40 mg PO BEDTIME 07/04/22 [History Confirmed 07/04/22] duloxetine 30 mg capsule,delayed release sprinkle 30 mg PO DAILY 07/04/22 [History Confirmed 07/04/22] mirtazapine 45 mg tablet 45 mg PO BEDTIME 07/04/22 [History Confirmed 07/04/22] Visit Medications (administered) Generic Name Dose Route Start Last Admin Trade Name Freq PRN Reason Stop Dose Admin Sodium Chloride 1,000 mls @ 250 mls/hr 07/04/22 15:00 07/04/22 18:49 Normal Saline 0.9% IV Infused CONT LYDIA Infusion INSULIN DRIP PREMIX 100 unit in 100 mls @ 6 mls/hr 07/04/22 15:00 07/04/22 19:43 Myxredlin Drip Premix IV 12 mls/hr TITRATE LYDIA 12 mls/hr Titration Protocol Ondansetron HCl 4 mg 07/04/22 13:09 07/04/22 14:06 Ondansetron 4 Mg/2 Ml Inj IV 4 mg NOW PRN Administration Nausea And Vomiting Exam Vital Signs (past 8 hours): - 07/04/22 13:06 07/04/22 13:37 07/04/22 13:37 Temperature 97.5 F L Pulse Rate 78 76 Respiratory Rate 22 15 Blood Pressure 148/69 H 129/63 Pulse Oximetry 100 100 Oxygen Delivery Method Room Air 07/04/22 13:40 07/04/22 13:40 07/04/22 13:45 Temperature Pulse Rate 75 Respiratory Rate 28 H Blood Pressure 139/63 141/97 H Pulse Oximetry 100 Oxygen Delivery Method 07/04/22 13:45 07/04/22 13:55 07/04/22 13:55 Temperature Pulse Rate 81 74 Respiratory Rate 44 H 27 H Blood Pressure 142/87 H Pulse Oximetry 99 100 Oxygen Delivery Method 07/04/22 14:00 07/04/22 14:00 07/04/22 14:05 Temperature Pulse Rate 75 Respiratory Rate 29 H Blood Pressure 140/61 108/53 L Pulse Oximetry 100 Oxygen Delivery Method 07/04/22 14:05 07/04/22 14:10 07/04/22 14:10 Temperature Pulse Rate 74 76 Respiratory Rate 27 H 28 H Blood Pressure 123/62 Pulse Oximetry 98 100 Oxygen Delivery Method 07/04/22 14:15 07/04/22 14:15 07/04/22 14:20 Temperature Pulse Rate 73 77 Respiratory Rate 28 H 38 H Blood Pressure 128/58 L Pulse Oximetry 100 100 Oxygen Delivery Method Room Air 07/04/22 14:20 07/04/22 14:28 07/04/22 14:28 Temperature Pulse Rate 79 Respiratory Rate 33 H Blood Pressure 144/58 H 148/67 H Pulse Oximetry 100 Oxygen Delivery Method 07/04/22 14:30 07/04/22 14:41 07/04/22 14:41 Temperature Pulse Rate 76 77 Respiratory Rate 41 H 19 Blood Pressure 121/58 L Pulse Oximetry 100 100 Oxygen Delivery Method 07/04/22 14:45 07/04/22 14:45 07/04/22 15:00 Temperature Pulse Rate 78 Respiratory Rate 20 Blood Pressure 133/61 152/61 H Pulse Oximetry 100 Oxygen Delivery Method 07/04/22 15:00 07/04/22 15:30 07/04/22 16:00 Temperature Pulse Rate 92 H 80 77 Respiratory Rate 41 H 28 H 27 H Blood Pressure Pulse Oximetry 100 100 99 Oxygen Delivery Method 07/04/22 16:30 07/04/22 17:00 07/04/22 17:30 Temperature Pulse Rate 83 76 72 Respiratory Rate 18 19 18 Blood Pressure Pulse Oximetry 97 98 Oxygen Delivery Method 07/04/22 17:53 07/04/22 17:53 07/04/22 18:00 Temperature Pulse Rate 77 Respiratory Rate 20 Blood Pressure 120/58 L 117/56 L Pulse Oximetry 98 Oxygen Delivery Method 07/04/22 18:00 07/04/22 18:15 07/04/22 18:15 Temperature Pulse Rate 76 76 Respiratory Rate 22 17 Blood Pressure 127/60 Pulse Oximetry 98 Oxygen Delivery Method 07/04/22 18:30 07/04/22 18:30 07/04/22 18:45 Temperature Pulse Rate 70 Respiratory Rate 20 Blood Pressure 125/58 L 119/59 L Pulse Oximetry Oxygen Delivery Method 07/04/22 18:45 07/04/22 19:00 07/04/22 19:09 Temperature Pulse Rate 78 78 Respiratory Rate 25 H 20 Blood Pressure 119/65 Pulse Oximetry 99 99 Oxygen Delivery Method 07/04/22 19:09 07/04/22 19:15 07/04/22 19:15 Temperature Pulse Rate 75 75 Respiratory Rate 23 18 Blood Pressure 132/68 Pulse Oximetry 98 100 Oxygen Delivery Method 07/04/22 19:30 07/04/22 19:30 Temperature Pulse Rate 74 Respiratory Rate 21 Blood Pressure 131/62 Pulse Oximetry 99 Oxygen Delivery Method Oxygen Delivery Method Room Air Objective Labs 07/04/22 13:50 07/04/22 16:50 Labs: Laboratory Results - last 24 hr 07/04/22 07/04/22 07/04/22 12:55 13:50 13:50 WBC 11.2 H RBC 5.02 Hgb 14.9 Hct 44.7 MCV 89.1 MCH 29.7 MCHC 33.3 RDW 13.3 Plt Count 243 Neut % (Auto) 90.3 H Lymph % (Auto) 6.4 L [place] % (Auto) 2.7 L Eos % (Auto) 0.1 L Baso % (Auto) 0.5 Neut # (Auto) 34017 H Lymph # (Auto) 700 L [place] # (Auto) 300 Eos # (Auto) 0 Baso # (Auto) 100 ABG pH ABG pCO2 ABG pO2 ABG HCO3 ABG Total CO2 ABG O2 Saturation ABG Base Excess VBG pH 7.35 VBG pCO2 26.7 L VBG pO2 26 L VBG HCO3 15 L VBG Total CO2 16 L VBG O2 Saturation 46 L VBG Base Excess -11.0 L FiO2 21 Sodium 132 L Potassium 5.0 Chloride 94 L Carbon Dioxide 12 L BUN 23 H Creatinine 1.15 Estimated GFR > 60 BUN/Creatinine Ratio 20.0 Glucose 731 H* Hemoglobin A1c Calcium 9.7 Phosphorus Magnesium 1.8 Total Bilirubin 2.7 H AST 27 ALT 44 Alkaline Phosphatase 104 Total Creatine Kinase 57 CK-MB (CK-2) TNP CK-MB (CK-2) Rel Index TNP Troponin I < 0.012 Total Protein 7.8 Albumin 4.7 Globulin 3.1 Albumin/Globulin Ratio 1.5 Lipase 62 TSH Urine Color Urine Appearance Urine pH Ur Specific [place] Urine Protein Urine Glucose (UA) Urine Ketones Urine Occult Blood Urine Nitrate Urine Bilirubin Urine Urobilinogen Ur Leukocyte Esterase Urine RBC Urine WBC Amorphous Sediment Urine Bacteria Ur Culture Indicated? U Opiates 300ng/mL cut Ur Oxycodone Screen Urine Methadone Screen Ur Barbiturates Screen U Tricyclic Antidepress Ur Phencyclidine Scrn Ur Amphetamines Screen U Methamphetamines Scrn Ur MDMA Scrn (Ecstasy) U Benzodiazepines Scrn Urine Cocaine Screen U Marijuana (THC) Screen Ethyl Alcohol Ketones SARS-CoV-2 (PCR) 07/04/22 07/04/22 07/04/22 13:50 13:50 13:50 WBC RBC Hgb Hct MCV MCH MCHC RDW Plt Count Neut % (Auto) Lymph % (Auto) [place] % (Auto) Eos % (Auto) Baso % (Auto) Neut # (Auto) Lymph # (Auto) [place] # (Auto) Eos # (Auto) Baso # (Auto) ABG pH ABG pCO2 ABG pO2 ABG HCO3 ABG Total CO2 ABG O2 Saturation ABG Base Excess VBG pH VBG pCO2 VBG pO2 VBG HCO3 VBG Total CO2 VBG O2 Saturation VBG Base Excess FiO2 Sodium Potassium Chloride Carbon Dioxide BUN Creatinine Estimated GFR BUN/Creatinine Ratio Glucose Hemoglobin A1c 9.5 H Calcium Phosphorus 3.6 Magnesium Total Bilirubin AST ALT Alkaline Phosphatase Total Creatine Kinase CK-MB (CK-2) CK-MB (CK-2) Rel Index Troponin I Total Protein Albumin Globulin Albumin/Globulin Ratio Lipase TSH 2.80 Urine Color Urine Appearance Urine pH Ur Specific [place] Urine Protein Urine Glucose (UA) Urine Ketones Urine Occult Blood Urine Nitrate Urine Bilirubin Urine Urobilinogen Ur Leukocyte Esterase Urine RBC Urine WBC Amorphous Sediment Urine Bacteria Ur Culture Indicated? U Opiates 300ng/mL cut Ur Oxycodone Screen Urine Methadone Screen Ur Barbiturates Screen U Tricyclic Antidepress Ur Phencyclidine Scrn Ur Amphetamines Screen U Methamphetamines Scrn Ur MDMA Scrn (Ecstasy) U Benzodiazepines Scrn Urine Cocaine Screen U Marijuana (THC) Screen Ethyl Alcohol Ketones 6.46 H SARS-CoV-2 (PCR) 07/04/22 07/04/22 07/04/22 14:15 14:40 14:40 WBC RBC Hgb Hct MCV MCH MCHC RDW Plt Count Neut % (Auto) Lymph % (Auto) [place] % (Auto) Eos % (Auto) Baso % (Auto) Neut # (Auto) Lymph # (Auto) [place] # (Auto) Eos # (Auto) Baso # (Auto) ABG pH ABG pCO2 ABG pO2 ABG HCO3 ABG Total CO2 ABG O2 Saturation ABG Base Excess VBG pH VBG pCO2 VBG pO2 VBG HCO3 VBG Total CO2 VBG O2 Saturation VBG Base Excess FiO2 Sodium Potassium Chloride Carbon Dioxide BUN Creatinine Estimated GFR BUN/Creatinine Ratio Glucose Hemoglobin A1c Calcium Phosphorus Magnesium Total Bilirubin AST ALT Alkaline Phosphatase Total Creatine Kinase CK-MB (CK-2) CK-MB (CK-2) Rel Index Troponin I Total Protein Albumin Globulin Albumin/Globulin Ratio Lipase TSH Urine Color Yellow Urine Appearance Clear Urine pH 6.0 Ur Specific [place] 1.010 Urine Protein Negative Urine Glucose (UA) 3+ H Urine Ketones 3+ H Urine Occult Blood Negative Urine Nitrate Negative Urine Bilirubin Negative Urine Urobilinogen 0.2 Ur Leukocyte Esterase Negative Urine RBC None seen Urine WBC None seen Amorphous Sediment 1+ Urine Bacteria None seen Ur Culture Indicated? Cult not indicated U Opiates 300ng/mL cut Negative Ur Oxycodone Screen Negative Urine Methadone Screen Negative Ur Barbiturates Screen Negative U Tricyclic Antidepress Negative Ur Phencyclidine Scrn Negative Ur Amphetamines Screen Negative U Methamphetamines Scrn Negative Ur MDMA Scrn (Ecstasy) Negative U Benzodiazepines Scrn Negative Urine Cocaine Screen Negative U Marijuana (THC) Screen Positive H Ethyl Alcohol Ketones SARS-CoV-2 (PCR) Negative 07/04/22 07/04/22 07/04/22 15:12 16:28 16:50 WBC RBC Hgb Hct MCV MCH MCHC RDW Plt Count Neut % (Auto) Lymph % (Auto) [place] % (Auto) Eos % (Auto) Baso % (Auto) Neut # (Auto) Lymph # (Auto) [place] # (Auto) Eos # (Auto) Baso # (Auto) ABG pH 7.27 L* ABG pCO2 24.9 L* ABG pO2 99 ABG HCO3 12 L ABG Total CO2 12 L ABG O2 Saturation 97 ABG Base Excess -15.0 L VBG pH VBG pCO2 VBG pO2 VBG HCO3 VBG Total CO2 VBG O2 Saturation VBG Base Excess FiO2 21 Sodium 136 L Potassium 4.4 Chloride 103 Carbon Dioxide 8 L* BUN 24 H Creatinine 1.12 Estimated GFR > 60 BUN/Creatinine Ratio 21.4 Glucose 532 H* Hemoglobin A1c Calcium 8.8 Phosphorus Magnesium Total Bilirubin 2.2 H AST 30 ALT 40 Alkaline Phosphatase 79 Total Creatine Kinase CK-MB (CK-2) CK-MB (CK-2) Rel Index Troponin I < 0.012 Total Protein 6.9 Albumin 4.1 Globulin 2.8 Albumin/Globulin Ratio 1.5 Lipase TSH Urine Color Urine Appearance Urine pH Ur Specific [place] Urine Protein Urine Glucose (UA) Urine Ketones Urine Occult Blood Urine Nitrate Urine Bilirubin Urine Urobilinogen Ur Leukocyte Esterase Urine RBC Urine WBC Amorphous Sediment Urine Bacteria Ur Culture Indicated? U Opiates 300ng/mL cut Ur Oxycodone Screen Urine Methadone Screen Ur Barbiturates Screen U Tricyclic Antidepress Ur Phencyclidine Scrn Ur Amphetamines Screen U Methamphetamines Scrn Ur MDMA Scrn (Ecstasy) U Benzodiazepines Scrn Urine Cocaine Screen U Marijuana (THC) Screen Ethyl Alcohol < 10 Ketones SARS-CoV-2 (PCR) Assessment & Plan Assessment & Plan narrative: patient seen in room chart/labs/imaging reviewed cased discussed with bedside nurse and Dr. Stevenson 56 year old male with PMHx of DM admitted to ICU for DKA sepsis without shock 2/2 tooth infection vs other pH 7.27/34/99 glucose 700 AH 25 cxr -ve UA +ve for ketones suggest -DKA protocol -ivf/insulin -replace lytes -check cxs -abx -monitor ins/outs -gi/dvt ppx -please call eICU if condition changes total cm time 45 mins Time Spent With Patient Critical Care time: I spent a total of [] minutes of critical care time on this patient's care today; this time is exclusive of procedural time.
[2022-07-04] MEDS: cefTRIAXone 1,000 MG in SODIUM CHLORIDE 0.9% 100 ML 200 MG IV (20:45)
[2022-07-04] MEDS: metroNIDAZOLE 500 MG TABLET PO (20:55)
[2022-07-04 22:02] LABS: MRSA (Nasal) PCR Not Detected (Not Detect)
[2022-07-04 22:33] LABS: BUN Creatinine Ratio 24.2 (6-22); Blood Urea Nitrogen 22 mg/dL (9-20); Calcium 8.5 mg/dL (8.4-10.2); Carbon Dioxide 22 mmol/L (22-32); Chloride 106 mmol/L (98-107); Estimated Glomerular Filt Rate > 60 mL/min (>60); Glucose 155 mg/dL (70-100); HEMOLYSIS < 15 (0-50); Potassium 3.9 mmol/L (3.4-5.1); Sodium 136 mmol/L (137-145)
--- NOTE | 2022-07-04 22:53 | PM.EVENT ---
Event Note Event Note (Rapid Response, Code, or fall): AG closed and Co2 22. Transitioned to lantus 20 units SQ QHS and medium intensity insulin sliding scale. D/w bedside RN.
[2022-07-04] MEDS: INSULIN GLARGINE 100 UNIT/ML 3ML PEN 20 UNIT SUBCUT (23:07)
[2022-07-04] MEDS: MIRTAZAPINE 15 MG TABLET PO (23:07)
[2022-07-04] MEDS: MELATONIN 3 MG TABLET 6 MG PO (23:07)
[2022-07-05] VITALS (16 sets, daily range): BP systolic 96–125; BP diastolic 51–63; PULSE 57–81; RESP 15–31; TEMP 36.8–37.6; O2SAT 97–100
--- NOTE | 2022-07-05 00:07 | PC.NURSE ---
Admit Note-Patient brought to ICU room 228 at 1999. A/O x4. Insulin gtt at 12units/hr, CBG checked 298, decreased per protocol. Denies nausea, VSS. IV Ceftriaxone and PO Flagyl started. Spoke with Dr Navarro at 2250, gap closed, 20 units Lantus given, insulin to be off in 2 hours-0100, advance diet.
[2022-07-05 04:43] LABS: Add Manual Diff / Slide Review NO; Basophils Absolute Auto 0 /uL (0-100); Basophils Percent Auto 0.4 % (0-2); Eosinophils Absolute Auto 0 /uL (0-450); Eosinophils Percent Auto 0.2 % (2-4); Hematocrit 37.2 % (41-53); Hemoglobin 12.8 g/dL (13.5-17.5); Lymphocytes Absolute Auto 1400 /uL (1100-4500); Lymphocytes Percent Auto 12.5 % (25-40); Mean Corpuscular HGB Conc 34.4 % (30-36); Mean Corpuscular Hemoglobin 29.6 PG (26-34); Mean Corpuscular Volume 86.3 fL (80-100); Monocytes Absolute Auto 1000 /uL (0-900); Neutrophils Absolute Auto 8900 /uL (1500-7000); Neutrophils Percent Auto 77.9 % (50-75); Platelet Count 233 X10^3/uL (150-400); Red Blood Cell Count 4.31 X10^6/uL (4.5-5.9); Red Cell Distribution Width 13.7 % (11.6-14.8); White Blood Cell Count 11.4 X10^3/uL (4.5-11.0)
[2022-07-05 04:49] LABS: BUN Creatinine Ratio 23.2 (6-22); Blood Urea Nitrogen 22 mg/dL (9-20); Calcium 8.1 mg/dL (8.4-10.2); Carbon Dioxide 21 mmol/L (22-32); Chloride 105 mmol/L (98-107); Estimated Glomerular Filt Rate > 60 mL/min (>60); Glucose 206 mg/dL (70-100); HEMOLYSIS 16 (0-50); Potassium 3.9 mmol/L (3.4-5.1); Sodium 134 mmol/L (137-145)
[2022-07-05] MEDS: metroNIDAZOLE 500 MG TABLET PO (08:49)
[2022-07-05] MEDS: INSULIN LISPRO 100 UNIT/ML 3ML VIAL SUBCUT ×2 (08:49→12:13)
[2022-07-05] MEDS: SODIUM CHLORIDE 0.9% FLUSH 10 ML IV (08:49)
--- NOTE | 2022-07-05 08:52 | PM.PN.1 ---
Exam Vital Signs (past 8 hours): - 07/05/22 01:03 07/05/22 02:00 07/05/22 02:00 Temperature Pulse Rate 74 66 Respiratory Rate 18 16 Blood Pressure 96/51 L Pulse Oximetry 07/05/22 02:02 07/05/22 02:02 07/05/22 02:05 Temperature Pulse Rate 65 65 Respiratory Rate 18 18 Blood Pressure 97/54 L Pulse Oximetry 07/05/22 03:00 07/05/22 04:00 07/05/22 04:00 Temperature 98.8 F Pulse Rate 65 65 Respiratory Rate 15 16 Blood Pressure 120/60 Pulse Oximetry 97 07/05/22 04:19 07/05/22 06:00 07/05/22 06:00 Temperature Pulse Rate 81 66 Respiratory Rate 31 H 17 Blood Pressure 114/63 Pulse Oximetry 07/05/22 06:18 07/05/22 06:30 07/05/22 07:00 Temperature Pulse Rate 64 64 65 Respiratory Rate 17 17 18 Blood Pressure Pulse Oximetry 07/05/22 07:30 07/05/22 08:00 07/05/22 08:00 Temperature 98.2 F Pulse Rate 66 57 L Respiratory Rate 20 16 Blood Pressure 125/61 Pulse Oximetry 100 Oxygen Delivery Method Room Air Narrative Exam Narrative: GEN: no acute distress HEENT: moist mucous membranes, PERRL NECK: trachea midline, no JVD CV: regular rate and rhythm, no murmurs PULM: clear bilaterally ABD: soft, nontender, nondistended, no organomegaly EXT: warm and well perfused with no edema NEURO: awake, alert, oriented, no focal deficits Objective Labs 07/05/22 04:20 07/05/22 04:20 Labs: Laboratory Results - last 24 hr 07/04/22 07/04/22 07/04/22 12:55 13:50 13:50 WBC 11.2 H RBC 5.02 Hgb 14.9 Hct 44.7 MCV 89.1 MCH 29.7 MCHC 33.3 RDW 13.3 Plt Count 243 Neut % (Auto) 90.3 H Lymph % (Auto) 6.4 L [place] % (Auto) 2.7 L Eos % (Auto) 0.1 L Baso % (Auto) 0.5 Neut # (Auto) 94236 H Lymph # (Auto) 700 L [place] # (Auto) 300 Eos # (Auto) 0 Baso # (Auto) 100 ABG pH ABG pCO2 ABG pO2 ABG HCO3 ABG Total CO2 ABG O2 Saturation ABG Base Excess VBG pH 7.35 VBG pCO2 26.7 L VBG pO2 26 L VBG HCO3 15 L VBG Total CO2 16 L VBG O2 Saturation 46 L VBG Base Excess -11.0 L FiO2 21 Sodium 132 L Potassium 5.0 Chloride 94 L Carbon Dioxide 12 L BUN 23 H Creatinine 1.15 Estimated GFR > 60 BUN/Creatinine Ratio 20.0 Glucose 731 H* Hemoglobin A1c Calcium 9.7 Phosphorus Magnesium 1.8 Total Bilirubin 2.7 H AST 27 ALT 44 Alkaline Phosphatase 104 Total Creatine Kinase 57 CK-MB (CK-2) TNP CK-MB (CK-2) Rel Index TNP Troponin I < 0.012 Total Protein 7.8 Albumin 4.7 Globulin 3.1 Albumin/Globulin Ratio 1.5 Lipase 62 TSH Urine Color Urine Appearance Urine pH Ur Specific [place] Urine Protein Urine Glucose (UA) Urine Ketones Urine Occult Blood Urine Nitrate Urine Bilirubin Urine Urobilinogen Ur Leukocyte Esterase Urine RBC Urine WBC Amorphous Sediment Urine Bacteria Ur Culture Indicated? Nasal Screen MRSA (PCR) U Opiates 300ng/mL cut Ur Oxycodone Screen Urine Methadone Screen Ur Barbiturates Screen U Tricyclic Antidepress Ur Phencyclidine Scrn Ur Amphetamines Screen U Methamphetamines Scrn Ur MDMA Scrn (Ecstasy) U Benzodiazepines Scrn Urine Cocaine Screen U Marijuana (THC) Screen Ethyl Alcohol Ketones SARS-CoV-2 (PCR) 07/04/22 07/04/22 07/04/22 13:50 13:50 13:50 WBC RBC Hgb Hct MCV MCH MCHC RDW Plt Count Neut % (Auto) Lymph % (Auto) [place] % (Auto) Eos % (Auto) Baso % (Auto) Neut # (Auto) Lymph # (Auto) [place] # (Auto) Eos # (Auto) Baso # (Auto) ABG pH ABG pCO2 ABG pO2 ABG HCO3 ABG Total CO2 ABG O2 Saturation ABG Base Excess VBG pH VBG pCO2 VBG pO2 VBG HCO3 VBG Total CO2 VBG O2 Saturation VBG Base Excess FiO2 Sodium Potassium Chloride Carbon Dioxide BUN Creatinine Estimated GFR BUN/Creatinine Ratio Glucose Hemoglobin A1c 9.5 H Calcium Phosphorus 3.6 Magnesium Total Bilirubin AST ALT Alkaline Phosphatase Total Creatine Kinase CK-MB (CK-2) CK-MB (CK-2) Rel Index Troponin I Total Protein Albumin Globulin Albumin/Globulin Ratio Lipase TSH 2.80 Urine Color Urine Appearance Urine pH Ur Specific [place] Urine Protein Urine Glucose (UA) Urine Ketones Urine Occult Blood Urine Nitrate Urine Bilirubin Urine Urobilinogen Ur Leukocyte Esterase Urine RBC Urine WBC Amorphous Sediment Urine Bacteria Ur Culture Indicated? Nasal Screen MRSA (PCR) U Opiates 300ng/mL cut Ur Oxycodone Screen Urine Methadone Screen Ur Barbiturates Screen U Tricyclic Antidepress Ur Phencyclidine Scrn Ur Amphetamines Screen U Methamphetamines Scrn Ur MDMA Scrn (Ecstasy) U Benzodiazepines Scrn Urine Cocaine Screen U Marijuana (THC) Screen Ethyl Alcohol Ketones 6.46 H SARS-CoV-2 (PCR) 07/04/22 07/04/22 07/04/22 14:15 14:40 14:40 WBC RBC Hgb Hct MCV MCH MCHC RDW Plt Count Neut % (Auto) Lymph % (Auto) [place] % (Auto) Eos % (Auto) Baso % (Auto) Neut # (Auto) Lymph # (Auto) [place] # (Auto) Eos # (Auto) Baso # (Auto) ABG pH ABG pCO2 ABG pO2 ABG HCO3 ABG Total CO2 ABG O2 Saturation ABG Base Excess VBG pH VBG pCO2 VBG pO2 VBG HCO3 VBG Total CO2 VBG O2 Saturation VBG Base Excess FiO2 Sodium Potassium Chloride Carbon Dioxide BUN Creatinine Estimated GFR BUN/Creatinine Ratio Glucose Hemoglobin A1c Calcium Phosphorus Magnesium Total Bilirubin AST ALT Alkaline Phosphatase Total Creatine Kinase CK-MB (CK-2) CK-MB (CK-2) Rel Index Troponin I Total Protein Albumin Globulin Albumin/Globulin Ratio Lipase TSH Urine Color Yellow Urine Appearance Clear Urine pH 6.0 Ur Specific [place] 1.010 Urine Protein Negative Urine Glucose (UA) 3+ H Urine Ketones 3+ H Urine Occult Blood Negative Urine Nitrate Negative Urine Bilirubin Negative Urine Urobilinogen 0.2 Ur Leukocyte Esterase Negative Urine RBC None seen Urine WBC None seen Amorphous Sediment 1+ Urine Bacteria None seen Ur Culture Indicated? Cult not indicated Nasal Screen MRSA (PCR) U Opiates 300ng/mL cut Negative Ur Oxycodone Screen Negative Urine Methadone Screen Negative Ur Barbiturates Screen Negative U Tricyclic Antidepress Negative Ur Phencyclidine Scrn Negative Ur Amphetamines Screen Negative U Methamphetamines Scrn Negative Ur MDMA Scrn (Ecstasy) Negative U Benzodiazepines Scrn Negative Urine Cocaine Screen Negative U Marijuana (THC) Screen Positive H Ethyl Alcohol Ketones SARS-CoV-2 (PCR) Negative 07/04/22 07/04/22 07/04/22 15:12 16:28 16:50 WBC RBC Hgb Hct MCV MCH MCHC RDW Plt Count Neut % (Auto) Lymph % (Auto) [place] % (Auto) Eos % (Auto) Baso % (Auto) Neut # (Auto) Lymph # (Auto) [place] # (Auto) Eos # (Auto) Baso # (Auto) ABG pH 7.27 L* ABG pCO2 24.9 L* ABG pO2 99 ABG HCO3 12 L ABG Total CO2 12 L ABG O2 Saturation 97 ABG Base Excess -15.0 L VBG pH VBG pCO2 VBG pO2 VBG HCO3 VBG Total CO2 VBG O2 Saturation VBG Base Excess FiO2 21 Sodium 136 L Potassium 4.4 Chloride 103 Carbon Dioxide 8 L* BUN 24 H Creatinine 1.12 Estimated GFR > 60 BUN/Creatinine Ratio 21.4 Glucose 532 H* Hemoglobin A1c Calcium 8.8 Phosphorus Magnesium Total Bilirubin 2.2 H AST 30 ALT 40 Alkaline Phosphatase 79 Total Creatine Kinase CK-MB (CK-2) CK-MB (CK-2) Rel Index Troponin I < 0.012 Total Protein 6.9 Albumin 4.1 Globulin 2.8 Albumin/Globulin Ratio 1.5 Lipase TSH Urine Color Urine Appearance Urine pH Ur Specific [place] Urine Protein Urine Glucose (UA) Urine Ketones Urine Occult Blood Urine Nitrate Urine Bilirubin Urine Urobilinogen Ur Leukocyte Esterase Urine RBC Urine WBC Amorphous Sediment Urine Bacteria Ur Culture Indicated? Nasal Screen MRSA (PCR) U Opiates 300ng/mL cut Ur Oxycodone Screen Urine Methadone Screen Ur Barbiturates Screen U Tricyclic Antidepress Ur Phencyclidine Scrn Ur Amphetamines Screen U Methamphetamines Scrn Ur MDMA Scrn (Ecstasy) U Benzodiazepines Scrn Urine Cocaine Screen U Marijuana (THC) Screen Ethyl Alcohol < 10 Ketones SARS-CoV-2 (PCR) 07/04/22 07/04/22 07/05/22 20:00 22:05 04:20 WBC 11.4 H RBC 4.31 L Hgb 12.8 L Hct 37.2 L MCV 86.3 MCH 29.6 MCHC 34.4 RDW 13.7 Plt Count 233 Neut % (Auto) 77.9 H Lymph % (Auto) 12.5 L [place] % (Auto) 9.0 Eos % (Auto) 0.2 L Baso % (Auto) 0.4 Neut # (Auto) 8900 H Lymph # (Auto) 1400 [place] # (Auto) 1000 H Eos # (Auto) 0 Baso # (Auto) 0 ABG pH ABG pCO2 ABG pO2 ABG HCO3 ABG Total CO2 ABG O2 Saturation ABG Base Excess VBG pH VBG pCO2 VBG pO2 VBG HCO3 VBG Total CO2 VBG O2 Saturation VBG Base Excess FiO2 Sodium 136 L Potassium 3.9 Chloride 106 Carbon Dioxide 22 BUN 22 H Creatinine 0.91 Estimated GFR > 60 BUN/Creatinine Ratio 24.2 H Glucose 155 H D Hemoglobin A1c Calcium 8.5 Phosphorus Magnesium Total Bilirubin AST ALT Alkaline Phosphatase Total Creatine Kinase CK-MB (CK-2) CK-MB (CK-2) Rel Index Troponin I Total Protein Albumin Globulin Albumin/Globulin Ratio Lipase TSH Urine Color Urine Appearance Urine pH Ur Specific [place] Urine Protein Urine Glucose (UA) Urine Ketones Urine Occult Blood Urine Nitrate Urine Bilirubin Urine Urobilinogen Ur Leukocyte Esterase Urine RBC Urine WBC Amorphous Sediment Urine Bacteria Ur Culture Indicated? Nasal Screen MRSA (PCR) Not detected U Opiates 300ng/mL cut Ur Oxycodone Screen Urine Methadone Screen Ur Barbiturates Screen U Tricyclic Antidepress Ur Phencyclidine Scrn Ur Amphetamines Screen U Methamphetamines Scrn Ur MDMA Scrn (Ecstasy) U Benzodiazepines Scrn Urine Cocaine Screen U Marijuana (THC) Screen Ethyl Alcohol Ketones SARS-CoV-2 (PCR) 07/05/22 04:20 WBC RBC Hgb Hct MCV MCH MCHC RDW Plt Count Neut % (Auto) Lymph % (Auto) [place] % (Auto) Eos % (Auto) Baso % (Auto) Neut # (Auto) Lymph # (Auto) [place] # (Auto) Eos # (Auto) Baso # (Auto) ABG pH ABG pCO2 ABG pO2 ABG HCO3 ABG Total CO2 ABG O2 Saturation ABG Base Excess VBG pH VBG pCO2 VBG pO2 VBG HCO3 VBG Total CO2 VBG O2 Saturation VBG Base Excess FiO2 Sodium 134 L Potassium 3.9 Chloride 105 Carbon Dioxide 21 L BUN 22 H Creatinine 0.95 Estimated GFR > 60 BUN/Creatinine Ratio 23.2 H Glucose 206 H Hemoglobin A1c Calcium 8.1 L Phosphorus Magnesium Total Bilirubin AST ALT Alkaline Phosphatase Total Creatine Kinase CK-MB (CK-2) CK-MB (CK-2) Rel Index Troponin I Total Protein Albumin Globulin Albumin/Globulin Ratio Lipase TSH Urine Color Urine Appearance Urine pH Ur Specific [place] Urine Protein Urine Glucose (UA) Urine Ketones Urine Occult Blood Urine Nitrate Urine Bilirubin Urine Urobilinogen Ur Leukocyte Esterase Urine RBC Urine WBC Amorphous Sediment Urine Bacteria Ur Culture Indicated? Nasal Screen MRSA (PCR) U Opiates 300ng/mL cut Ur Oxycodone Screen Urine Methadone Screen Ur Barbiturates Screen U Tricyclic Antidepress Ur Phencyclidine Scrn Ur Amphetamines Screen U Methamphetamines Scrn Ur MDMA Scrn (Ecstasy) U Benzodiazepines Scrn Urine Cocaine Screen U Marijuana (THC) Screen Ethyl Alcohol Ketones SARS-CoV-2 (PCR) [facility] Medical History Insulin dependent diabetes mellitus Social History household members: spouse Smoking Status: Former smoker alcohol intake: current substance use type: does not use Assessment & Plan Assessment & Plan narrative: # acute DKA -blood sugar 731 on admission, anion gap 26, bicarb 12, ketones positive at 6.46 -on insulin protocol -tele ICU consulted -transition to subcutaneous insulin once gap closes # type 1 diabetes -A1c 9.5% -dietitian consulted # toothache -unclear if he has dental infection which triggered the DKA, as he is noticed a toothache for 1 week -continue Rocephin and Flagyl Code status is full code. COVID negative. DVT prophylaxis with SCDs. Proxy is Alida. I have reviewed home meds and used all available resources to reconcile the home meds. I spent a total of 35 minutes of critical care time on this patient's care today; this time is exclusive of procedural time. This patient will be admitted as ICU and will require greater than 2 midnights of hospital time to treat DKA. Time Spent With Patient Critical Care time: I spent a total of [] minutes of critical care time on this patient's care today; this time is exclusive of procedural time. Quality VTE Deep Vein Thrombosis/Pulmonary Embolism Present on Admission: No
[2022-07-05] MEDS: DULOXETINE 30 MG CAPSULE PO (10:08)
--- NOTE | 2022-07-05 11:12 | CM.DANOTE ---
DCP: Case received, EMR reviewed and met with patient. Introduced self and role. Was able to obtain information regarding patient's baseline activity status prior to hospitalization. DCP assessment completed with information currently available. Patient is a 56 year old male who admitted yesterday afternoon to the care of the hospitalist team. PCP: Dr. Bowen. Payer: confirmed: [facility]. Patient came to the hospital via ambulance for chest discomfort, nausea and vomiting. Patient is an insulin dependent diabetic with an insulin pump. Notes indicate that patient has been diabetic since 1998. Patient was also noted to have a syncopal episode when getting up to use the rest room. Patient was noted to have acute DKA, blood sugar at 731, anion gap of 26, bicarb 12, ketones positive at 6.46. Met with patient in his room. He is alert and oriented, confirmed that he resides in [place], he mentioned, he lives with spouse. At his baseline. 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 P: Patient is to be discharged home today. He has no mode of transportation, gave him two bus passes. He has taken the bus before, and is ambulatory. Nuris Guzman RN/Running Specialist Discharge Planning/Care Management CM Discharge Assessment Start: 07/05/22 11:11 Freq: Status: Active Protocol: Document 07/05/22 11:11 (Rec: 07/05/22 11:12 [email or web address]) Discharge Planning Assessment Assigned Mobile Electronics Installer Nuris Guzman RN/Running Specialist Advance Directives? No History Provided By Patient,Medical Record Household Members spouse Type of transporation used prior to Relies on Others admit Comment Does not have current drivers license. Independent with ADL's Yes Is patient alert and oriented? Yes Caregiver for Another No Barriers to Discharge No Discharge Plan Home Transportation Arrangement Spouse Whiteboard Updated in Patient Room with Yes name and ext. # of Mobile Electronics Installer Review Status In Process Next Review Type Continued Stay Review
--- NOTE | 2022-07-05 11:26 | P.DS_ITS ---
History of Present Illness History of Present Illness Date Patient Seen: 07/05/22 Time Patient Seen: 11:27 Chief complaint: chest pain/ n&v/ high glucose Narrative: Niels Blackwood is a 56-year-old male with past medical history of type 1 diabetes with 3 DKA episodes in the past 6 months who presents with DKA. Anion gap 26, bicarb of 12. Patient states he woke up this morning feeling fine, then ate some breakfast and noticed her BG of >400 so he bolused some insulin through his insulin pump. He then began to feel worse with diaphoresis so came to the ED. He denies any issues with his insulin pump but says he noticed his roommates had turned down the fridge temp so it was at 42 degrees and his insulin is supposed to stay above 45 degrees. He also notes he has had a toothache for the past week. Hasn't seen a dentist due to his social security check being late. He is currently on an insulin drip and is asking for water and feels slightly hungry. He also notes some left CP below his nipple which he says always happens when I have DKA. The CP lasted a few hours then went away with treatment in the ED. He denies NV, SOB, abd pain, dysuria or diarrhea. 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 07/04/22 20:05 Consult to [facility] - Veneer Press Operator Routine Comment: Discharge provider: Kennedy Stevenson DO Summary Hospital Course Discharge Diagnosis: # acute DKA -blood sugar 731 on admission, anion gap 26, bicarb 12, ketones positive at 6.46 -on insulin protocol -gap closed after 24 hours and patient put back on home insulin, did well # type 1 diabetes -A1c 9.5% -dietitian consulted # toothache -unclear if he has dental infection which triggered the DKA, as he is noticed a toothache for 1 week -continue Rocephin and Flagyl -discharged on po augmentin Hospital Course: Admitted for DKA and improved after 24 hours on insulin drip. Unclear trigger but had a toothache for past week so put on abx to cover for dental infection. Will see dentist as outpatient. Time Spent with Patient Time spent: Greater than 30 minutes Exam Vital Signs (past 8 hours): - 07/05/22 04:00 07/05/22 04:00 07/05/22 04:19 Temperature 98.8 F Pulse Rate 65 81 Respiratory Rate 16 31 H Blood Pressure 120/60 Pulse Oximetry 97 Oxygen Delivery Method 07/05/22 06:00 07/05/22 06:00 07/05/22 06:18 Temperature Pulse Rate 66 64 Respiratory Rate 17 17 Blood Pressure 114/63 Pulse Oximetry Oxygen Delivery Method 07/05/22 06:30 07/05/22 07:00 07/05/22 07:30 Temperature Pulse Rate 64 65 66 Respiratory Rate 17 18 20 Blood Pressure Pulse Oximetry Oxygen Delivery Method 07/05/22 08:00 07/05/22 08:00 07/05/22 08:30 Temperature 98.2 F Pulse Rate 57 L 67 Respiratory Rate 16 19 Blood Pressure 125/61 Pulse Oximetry 100 Oxygen Delivery Method 07/05/22 07:00 Temperature Pulse Rate Respiratory Rate Blood Pressure Pulse Oximetry Oxygen Delivery Method Room Air Oxygen Delivery Method Room Air Narrative Exam Narrative: GEN: no acute distress HEENT: moist mucous membranes, PERRL NECK: trachea midline, no JVD CV: regular rate and rhythm, no murmurs PULM: clear bilaterally ABD: soft, nontender, nondistended, no organomegaly EXT: warm and well perfused with no edema NEURO: awake, alert, oriented, no focal deficits Objective Labs 07/05/22 04:20 07/05/22 04:20 Labs: Laboratory Results - last 24 hr 07/04/22 07/04/22 07/04/22 12:55 13:50 13:50 WBC 11.2 H RBC 5.02 Hgb 14.9 Hct 44.7 MCV 89.1 MCH 29.7 MCHC 33.3 RDW 13.3 Plt Count 243 Neut % (Auto) 90.3 H Lymph % (Auto) 6.4 L [place] % (Auto) 2.7 L Eos % (Auto) 0.1 L Baso % (Auto) 0.5 Neut # (Auto) 39286 H Lymph # (Auto) 700 L [place] # (Auto) 300 Eos # (Auto) 0 Baso # (Auto) 100 ABG pH ABG pCO2 ABG pO2 ABG HCO3 ABG Total CO2 ABG O2 Saturation ABG Base Excess VBG pH 7.35 VBG pCO2 26.7 L VBG pO2 26 L VBG HCO3 15 L VBG Total CO2 16 L VBG O2 Saturation 46 L VBG Base Excess -11.0 L FiO2 21 Sodium 132 L Potassium 5.0 Chloride 94 L Carbon Dioxide 12 L BUN 23 H Creatinine 1.15 Estimated GFR > 60 BUN/Creatinine Ratio 20.0 Glucose 731 H* Hemoglobin A1c Calcium 9.7 Phosphorus Magnesium 1.8 Total Bilirubin 2.7 H AST 27 ALT 44 Alkaline Phosphatase 104 Total Creatine Kinase 57 CK-MB (CK-2) TNP CK-MB (CK-2) Rel Index TNP Troponin I < 0.012 Total Protein 7.8 Albumin 4.7 Globulin 3.1 Albumin/Globulin Ratio 1.5 Lipase 62 TSH Urine Color Urine Appearance Urine pH Ur Specific [place] Urine Protein Urine Glucose (UA) Urine Ketones Urine Occult Blood Urine Nitrate Urine Bilirubin Urine Urobilinogen Ur Leukocyte Esterase Urine RBC Urine WBC Amorphous Sediment Urine Bacteria Ur Culture Indicated? Nasal Screen MRSA (PCR) U Opiates 300ng/mL cut Ur Oxycodone Screen Urine Methadone Screen Ur Barbiturates Screen U Tricyclic Antidepress Ur Phencyclidine Scrn Ur Amphetamines Screen U Methamphetamines Scrn Ur MDMA Scrn (Ecstasy) U Benzodiazepines Scrn Urine Cocaine Screen U Marijuana (THC) Screen Ethyl Alcohol Ketones SARS-CoV-2 (PCR) 07/04/22 07/04/22 07/04/22 13:50 13:50 13:50 WBC RBC Hgb Hct MCV MCH MCHC RDW Plt Count Neut % (Auto) Lymph % (Auto) [place] % (Auto) Eos % (Auto) Baso % (Auto) Neut # (Auto) Lymph # (Auto) [place] # (Auto) Eos # (Auto) Baso # (Auto) ABG pH ABG pCO2 ABG pO2 ABG HCO3 ABG Total CO2 ABG O2 Saturation ABG Base Excess VBG pH VBG pCO2 VBG pO2 VBG HCO3 VBG Total CO2 VBG O2 Saturation VBG Base Excess FiO2 Sodium Potassium Chloride Carbon Dioxide BUN Creatinine Estimated GFR BUN/Creatinine Ratio Glucose Hemoglobin A1c 9.5 H Calcium Phosphorus 3.6 Magnesium Total Bilirubin AST ALT Alkaline Phosphatase Total Creatine Kinase CK-MB (CK-2) CK-MB (CK-2) Rel Index Troponin I Total Protein Albumin Globulin Albumin/Globulin Ratio Lipase TSH 2.80 Urine Color Urine Appearance Urine pH Ur Specific [place] Urine Protein Urine Glucose (UA) Urine Ketones Urine Occult Blood Urine Nitrate Urine Bilirubin Urine Urobilinogen Ur Leukocyte Esterase Urine RBC Urine WBC Amorphous Sediment Urine Bacteria Ur Culture Indicated? Nasal Screen MRSA (PCR) U Opiates 300ng/mL cut Ur Oxycodone Screen Urine Methadone Screen Ur Barbiturates Screen U Tricyclic Antidepress Ur Phencyclidine Scrn Ur Amphetamines Screen U Methamphetamines Scrn Ur MDMA Scrn (Ecstasy) U Benzodiazepines Scrn Urine Cocaine Screen U Marijuana (THC) Screen Ethyl Alcohol Ketones 6.46 H SARS-CoV-2 (PCR) 07/04/22 07/04/22 07/04/22 14:15 14:40 14:40 WBC RBC Hgb Hct MCV MCH MCHC RDW Plt Count Neut % (Auto) Lymph % (Auto) [place] % (Auto) Eos % (Auto) Baso % (Auto) Neut # (Auto) Lymph # (Auto) [place] # (Auto) Eos # (Auto) Baso # (Auto) ABG pH ABG pCO2 ABG pO2 ABG HCO3 ABG Total CO2 ABG O2 Saturation ABG Base Excess VBG pH VBG pCO2 VBG pO2 VBG HCO3 VBG Total CO2 VBG O2 Saturation VBG Base Excess FiO2 Sodium Potassium Chloride Carbon Dioxide BUN Creatinine Estimated GFR BUN/Creatinine Ratio Glucose Hemoglobin A1c Calcium Phosphorus Magnesium Total Bilirubin AST ALT Alkaline Phosphatase Total Creatine Kinase CK-MB (CK-2) CK-MB (CK-2) Rel Index Troponin I Total Protein Albumin Globulin Albumin/Globulin Ratio Lipase TSH Urine Color Yellow Urine Appearance Clear Urine pH 6.0 Ur Specific [place] 1.010 Urine Protein Negative Urine Glucose (UA) 3+ H Urine Ketones 3+ H Urine Occult Blood Negative Urine Nitrate Negative Urine Bilirubin Negative Urine Urobilinogen 0.2 Ur Leukocyte Esterase Negative Urine RBC None seen Urine WBC None seen Amorphous Sediment 1+ Urine Bacteria None seen Ur Culture Indicated? Cult not indicated Nasal Screen MRSA (PCR) U Opiates 300ng/mL cut Negative Ur Oxycodone Screen Negative Urine Methadone Screen Negative Ur Barbiturates Screen Negative U Tricyclic Antidepress Negative Ur Phencyclidine Scrn Negative Ur Amphetamines Screen Negative U Methamphetamines Scrn Negative Ur MDMA Scrn (Ecstasy) Negative U Benzodiazepines Scrn Negative Urine Cocaine Screen Negative U Marijuana (THC) Screen Positive H Ethyl Alcohol Ketones SARS-CoV-2 (PCR) Negative 07/04/22 07/04/22 07/04/22 15:12 16:28 16:50 WBC RBC Hgb Hct MCV MCH MCHC RDW Plt Count Neut % (Auto) Lymph % (Auto) [place] % (Auto) Eos % (Auto) Baso % (Auto) Neut # (Auto) Lymph # (Auto) [place] # (Auto) Eos # (Auto) Baso # (Auto) ABG pH 7.27 L* ABG pCO2 24.9 L* ABG pO2 99 ABG HCO3 12 L ABG Total CO2 12 L ABG O2 Saturation 97 ABG Base Excess -15.0 L VBG pH VBG pCO2 VBG pO2 VBG HCO3 VBG Total CO2 VBG O2 Saturation VBG Base Excess FiO2 21 Sodium 136 L Potassium 4.4 Chloride 103 Carbon Dioxide 8 L* BUN 24 H Creatinine 1.12 Estimated GFR > 60 BUN/Creatinine Ratio 21.4 Glucose 532 H* Hemoglobin A1c Calcium 8.8 Phosphorus Magnesium Total Bilirubin 2.2 H AST 30 ALT 40 Alkaline Phosphatase 79 Total Creatine Kinase CK-MB (CK-2) CK-MB (CK-2) Rel Index Troponin I < 0.012 Total Protein 6.9 Albumin 4.1 Globulin 2.8 Albumin/Globulin Ratio 1.5 Lipase TSH Urine Color Urine Appearance Urine pH Ur Specific [place] Urine Protein Urine Glucose (UA) Urine Ketones Urine Occult Blood Urine Nitrate Urine Bilirubin Urine Urobilinogen Ur Leukocyte Esterase Urine RBC Urine WBC Amorphous Sediment Urine Bacteria Ur Culture Indicated? Nasal Screen MRSA (PCR) U Opiates 300ng/mL cut Ur Oxycodone Screen Urine Methadone Screen Ur Barbiturates Screen U Tricyclic Antidepress Ur Phencyclidine Scrn Ur Amphetamines Screen U Methamphetamines Scrn Ur MDMA Scrn (Ecstasy) U Benzodiazepines Scrn Urine Cocaine Screen U Marijuana (THC) Screen Ethyl Alcohol < 10 Ketones SARS-CoV-2 (PCR) 07/04/22 07/04/22 07/05/22 20:00 22:05 04:20 WBC 11.4 H RBC 4.31 L Hgb 12.8 L Hct 37.2 L MCV 86.3 MCH 29.6 MCHC 34.4 RDW 13.7 Plt Count 233 Neut % (Auto) 77.9 H Lymph % (Auto) 12.5 L [place] % (Auto) 9.0 Eos % (Auto) 0.2 L Baso % (Auto) 0.4 Neut # (Auto) 8900 H Lymph # (Auto) 1400 [place] # (Auto) 1000 H Eos # (Auto) 0 Baso # (Auto) 0 ABG pH ABG pCO2 ABG pO2 ABG HCO3 ABG Total CO2 ABG O2 Saturation ABG Base Excess VBG pH VBG pCO2 VBG pO2 VBG HCO3 VBG Total CO2 VBG O2 Saturation VBG Base Excess FiO2 Sodium 136 L Potassium 3.9 Chloride 106 Carbon Dioxide 22 BUN 22 H Creatinine 0.91 Estimated GFR > 60 BUN/Creatinine Ratio 24.2 H Glucose 155 H D Hemoglobin A1c Calcium 8.5 Phosphorus Magnesium Total Bilirubin AST ALT Alkaline Phosphatase Total Creatine Kinase CK-MB (CK-2) CK-MB (CK-2) Rel Index Troponin I Total Protein Albumin Globulin Albumin/Globulin Ratio Lipase TSH Urine Color Urine Appearance Urine pH Ur Specific [place] Urine Protein Urine Glucose (UA) Urine Ketones Urine Occult Blood Urine Nitrate Urine Bilirubin Urine Urobilinogen Ur Leukocyte Esterase Urine RBC Urine WBC Amorphous Sediment Urine Bacteria Ur Culture Indicated? Nasal Screen MRSA (PCR) Not detected U Opiates 300ng/mL cut Ur Oxycodone Screen Urine Methadone Screen Ur Barbiturates Screen U Tricyclic Antidepress Ur Phencyclidine Scrn Ur Amphetamines Screen U Methamphetamines Scrn Ur MDMA Scrn (Ecstasy) U Benzodiazepines Scrn Urine Cocaine Screen U Marijuana (THC) Screen Ethyl Alcohol Ketones SARS-CoV-2 (PCR) 07/05/22 04:20 WBC RBC Hgb Hct MCV MCH MCHC RDW Plt Count Neut % (Auto) Lymph % (Auto) [place] % (Auto) Eos % (Auto) Baso % (Auto) Neut # (Auto) Lymph # (Auto) [place] # (Auto) Eos # (Auto) Baso # (Auto) ABG pH ABG pCO2 ABG pO2 ABG HCO3 ABG Total CO2 ABG O2 Saturation ABG Base Excess VBG pH VBG pCO2 VBG pO2 VBG HCO3 VBG Total CO2 VBG O2 Saturation VBG Base Excess FiO2 Sodium 134 L Potassium 3.9 Chloride 105 Carbon Dioxide 21 L BUN 22 H Creatinine 0.95 Estimated GFR > 60 BUN/Creatinine Ratio 23.2 H Glucose 206 H Hemoglobin A1c Calcium 8.1 L Phosphorus Magnesium Total Bilirubin AST ALT Alkaline Phosphatase Total Creatine Kinase CK-MB (CK-2) CK-MB (CK-2) Rel Index Troponin I Total Protein Albumin Globulin Albumin/Globulin Ratio Lipase TSH Urine Color Urine Appearance Urine pH Ur Specific [place] Urine Protein Urine Glucose (UA) Urine Ketones Urine Occult Blood Urine Nitrate Urine Bilirubin Urine Urobilinogen Ur Leukocyte Esterase Urine RBC Urine WBC Amorphous Sediment Urine Bacteria Ur Culture Indicated? Nasal Screen MRSA (PCR) U Opiates 300ng/mL cut Ur Oxycodone Screen Urine Methadone Screen Ur Barbiturates Screen U Tricyclic Antidepress Ur Phencyclidine Scrn Ur Amphetamines Screen U Methamphetamines Scrn Ur MDMA Scrn (Ecstasy) U Benzodiazepines Scrn Urine Cocaine Screen U Marijuana (THC) Screen Ethyl Alcohol Ketones SARS-CoV-2 (PCR) [facility] Medical History Insulin dependent diabetes mellitus Social History household members: spouse Smoking Status: Former smoker alcohol intake: current substance use type: does not use Discharge Plan Discharge Plan Patient Disposition: Home Provider Discharge Comment: You presented with DKA which we reversed with an insulin IV drip. This may have started due to your toothache so I'm putting you on 1 week of oral antibiotics and you should see a dentist. Discharge orders & Medications Prescriptions: New amoxicillin-pot clavulanate 875-125 mg tablet 1 tab PO BID 7 Days Qty: 14 0RF Continued insulin lispro [Humalog U-100 Insulin] 100 UNIT/1 ML solution See Rx Instructions .ROUTE .COMPLEX Qty: 0 Rx Instructions: per pump atorvastatin 40 mg tablet 40 mg PO BEDTIME Patient Comments: take 1 tablet by mouth at bedtime /// NEED TO DO LABWORK. mirtazapine 45 mg tablet 45 mg PO BEDTIME duloxetine 30 mg Capsule, Delayed Rel Sprinkle 30 mg PO DAILY Follow up/Referrals: Darell Allison MD [Primary Care Provider] - 2 Weeks Diet/Activity/Treatments Diet: Carb-consistent/Diabetic Activity: as tolerated Visit Report/Discharge Packet Stand Alone Forms: Patient Portal/API, Stroke Signs & Symptoms Discharge Data Primary Care Provider: Darell Allison VTE Deep Vein Thrombosis/Pulmonary Embolism Present on Admission: No
[2022-07-09 06:14] LABS: Enterococcus species Not Detected (Not Detect); Listeria monocytogenes Not Detected (Not Detect); Staphylococcus species Not Detected (Not Detect); Streptococcus agalactiae (Gr B Not Detected (Not Detect); Streptococcus pneumonia Not Detected (Not Detect); Streptococcus species Not Detected (Not Detect)
[2022-07-09 06:15] LABS: Acinetobacter baumannii Not Detected (Not Detect); Candida albicans Not Detected (Not Detect); Candida glabrata Not Detected (Not Detect); Candida krusei Not Detected (Not Detect); Candida parapsilosis Not Detected (Not Detect); Candida tropicalis Not Detected (Not Detect); E. coli Not Detected (Not Detect); Enterobacter cloacae complex Not Detected (Not Detect); Enterobacteriaceae species Not Detected (Not Detect); Haemophilus influenzae Not Detected (Not Detect); Neisseria meningitidis Not Detected (Not Detect); Proteus species Not Detected (Not Detect); Pseudomonas aeruginosa Not Detected (Not Detect); Serratia marcescens Not Detected (Not Detect); Streptococcus pyogenes (Gr A) Not Detected (Not Detect)
== END 2022-07-05 13:03 | disposition home or self-care (01) | DRG 639 ==
LOC: ED 16:10 → AC 17:38 → ICU 19:59
PROVIDERS: Admitting Provider Student in an Organized Health Care Education/Training Program; Emergency Provider Emergency Medicine; Family Provider Family Medicine; PCP Family Medicine; Referring Provider Emergency Medicine; Visit Provider Student in an Organized Health Care Education/Training Program
DX: E10.10 Type 1 diabetes mellitus with ketoacidosis without coma (principal); K08.89 Other specified disorders of teeth and supporting structures; R03.0 Elevated blood-pressure reading, without diagnosis of hypertension; Z87.891 Personal history of nicotine dependence; Z20.822 Contact with and (suspected) exposure to COVID-19
CPT/HCPCS: 36415; 36592; 36600; 71045; 80048; 80053; 80305; 80320; 81001; 82009; 82550; 82805; 82962; 83036; 83690; 83735; 84100; 84443; 84484; 85025; 87040; 87077; 87086; 87150; 87635; 87797; 93005; 93010; 96365; 96366; 96375; 99284; 99291; C9803; J0696; J1815; J2405; J2765

== ENCOUNTER 2023-11-13 09:57 | Emergency (ER) | payer MEDICARE, SELFPAY ==
[2022-07-04 19:23] VITALS: BMI 23.9
[2023-11-13] VITALS (18 sets, daily range): BP systolic 121–138; BP diastolic 64–78; PULSE 58–70; RESP 16–22; TEMP 36.4; O2SAT 97–99; BMI 25.3
[2023-11-13] MEDS: SODIUM CHLORIDE 0.9% 1,000 ML 1000 ML IV (10:18)
[2023-11-13 10:25] LABS: PCO2 VBG 49.9 mmHg (45-50); PO2 VBG 34 mmHg (35-45); pH VBG 7.33 (7.33-7.43)
[2023-11-13 10:26] LABS: Base Excess VBG -0.7 mmol/L (0-4); Fractionated Inspired Oxygen 21; HCO3 VBG 26 mmol/L (24-28); Oxygen Saturation VBG 60 % (70-75); Total CO2 VBG 26 mmol/L (24-29)
[2023-11-13 10:31] LABS: Add Manual Diff / Slide Review NO; Basophils Absolute Auto 100 /uL (0-100); Eosinophils Absolute Auto 100 /uL (0-450); Eosinophils Percent Auto 1.8 % (2-4); Hematocrit 42.5 % (41-53); Hemoglobin 14.4 g/dL (13.5-17.5); Lymphocytes Absolute Auto 900 /uL (1100-4500); Lymphocytes Percent Auto 15.7 % (25-40); Mean Corpuscular HGB Conc 33.9 % (30-36); Mean Corpuscular Hemoglobin 30.2 PG (26-34); Mean Corpuscular Volume 89.2 fL (80-100); Monocytes Absolute Auto 400 /uL (0-900); Monocytes Percent Auto 7.2 % (3-14); Neutrophils Absolute Auto 4200 /uL (1500-7000); Neutrophils Percent Auto 74.3 % (50-75); Platelet Count 163 X10^3/uL (150-400); Red Blood Cell Count 4.77 X10^6/uL (4.5-5.9); Red Cell Distribution Width 12.7 % (11.6-14.8); White Blood Cell Count 5.7 X10^3/uL (4.5-11.0)
[2023-11-13 10:37] LABS: Lactate (Lactic Acid) 1.8 mmol/L (0.7-2.1)
[2023-11-13 10:39] LABS: Alanine Aminotransferase 20 IU/L (<50); Albumin 4.4 g/dL (3.5-5.0); Albumin Globulin Ratio 1.6 (1.0-2.8); Alkaline Phosphatase 98 U/L (38-126); Aspartate Aminotransferase 19 IU/L (17-59); BUN Creatinine Ratio 25.5 (6-22); Bilirubin Total 0.7 mg/dL (0.2-1.3); Blood Urea Nitrogen 27 mg/dL (9-20); Calcium 9.2 mg/dL (8.4-10.2); Carbon Dioxide 24 mmol/L (22-32); Chloride 100 mmol/L (98-107); Estimated Glomerular Filt Rate > 60 mL/min (>60); Globulin 2.7 g/dL (1.7-4.1); HEMOLYSIS < 15 (0-50); Lipase 155 U/L (23-300); Potassium 4.4 mmol/L (3.4-5.1); Sodium 132 mmol/L (137-145); Total Protein 7.1 g/dL (6.3-8.2)
[2023-11-13 10:40] LABS: Glucose 548 mg/dL (80-110)
[2023-11-13 10:47] LABS: Ketones (Beta-Hydroxybutyrate) < 0.20 mmol/L (<0.27)
[2023-11-13 10:59] LABS: INR 0.9 (0.9-1.3); Prothrombin Time 10.3 SECONDS (9.4-12.5)
[2023-11-13 11:02] LABS: PTT Partial Thromboplastin Tim 30 SECONDS (25.1-36.5)
--- NOTE | 2023-11-13 11:14 | ED_ITS ---
HPI - General Adult General Chief complaint: Diabetic Problem Stated complaint: high blood sugar lt side back pain Time Seen by Provider: 11/13/23 10:32 Source: patient Mode of arrival: Ambulatory History of Present Illness HPI narrative: Patient is a 58-year-old male insulin-dependent diabetic history of hyperlipidemia, presenting today with hyperglycemia. He has an insulin pump he has been monitoring his sugars quite a bit. He was having pretty out of control sugars frequently having ketones. 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 Says he has been doing okay however his glucose today is unreadable is greater than 500. He has no fever or chills. He is some mild left flank pain. No nausea or vomiting. Denies any sort of chest pain. No painful or frequent urination. Not dizzy or lightheaded. Very concerned about why his glucose is elevated is concerned that there might be an infection. Related Data Home Medications Medication Instructions Recorded Confirmed insulin lispro 100 unit/mL See Rx Instructions .Route 10/07/10 07/04/22 subcutaneous solution (Humalog .COMPLEX ##0 U-100 Insulin) atorvastatin 40 mg tablet 40 mg PO BEDTIME 07/04/22 07/04/22 duloxetine 30 mg capsule,delayed 30 mg PO DAILY 07/04/22 07/04/22 release sprinkle mirtazapine 45 mg tablet 45 mg PO BEDTIME 07/04/22 07/04/22 Allergies Allergy/AdvReac Type Severity Reaction Status Date / Time codeine [CODEINE] Allergy Severe Unconscious Verified 11/13/23 10:09 doxycycline [DOXYCYCLINE] Allergy Unknown Verified 11/13/23 10:09 omeprazole [OMEPRAZOLE] Allergy Unknown Verified 11/13/23 10:09 insulin aspart AdvReac Mild Rash at Verified 11/13/23 10:09 [From Novolog U-100 Insulin injection aspart] site Patient History Medical History Insulin dependent diabetes mellitus Social History household members: spouse Smoking Status: Former smoker alcohol intake: current substance use type: does not use Smoking Status: Former smoker alcohol intake frequency: 0-2 drinks per day Substance Use Type: marijuana Exam Initial Vital Signs Initial Vital Signs: Vital Signs Pulse Rate 63 07/22/24 10:03 Blood Pressure 133/70 11/13/23 10:03 Pulse Oximetry 98 11/13/23 10:03 GENERAL: Very well-appearing 58-year-old male and in no acute distress. HEENT: Head atraumatic,EOMI, pupils reactive, face symmetric, moist mucous membranes CARDIOVASCULAR: Regular rate and rhythm without murmurs, rubs or gallops. RESPIRATORY: Breath sounds equal bilaterally, no wheezes rales or rhonchi. ABDOMEN: Soft, nontender. Normoactive bowel sounds all 4 quadrants. No guarding or rebound. : Mild left CVA tenderness EXTREMITIES: Normal range of motion, no clubbing or edema. Neurovascularly intact NEUROLOGICAL: Alert and oriented x4.Normal gait and speech. SKIN: Warm, dry, no laceration, no petechiae, no rashes or lesions. Course Orders Ordered: ED Orders 11/13/23 11:01 Blood Culture Stat 11/13/23 11:28 CT kidney ureter bladder (KUB) Stat 11/13/23 11:59 Covid-19 + FLU A/B + RSV - PCR Stat 11/13/23 14:16 [place] [facility] [place] Discontinued Medications Sodium Chloride (Normal Saline 0.9%) 1,000 mls @ 1,000 mls/hr IV BOLUS ONE Stop: 11/13/23 11:11 Last Infusion: 11/13/23 12:00 Dose: Infused Documented By: Admin: 11/13/23 10:18 Dose: 1,000 mls/hr Documented By: Ondansetron HCl (Ondansetron 4 Mg/2 Ml Inj) 4 mg IV NOW PRN PRN Reason: Nausea And Vomiting Ondansetron HCl (Ondansetron 4 Mg Odt) 4 mg SL NOW PRN PRN Reason: Nausea And Vomiting Vital Signs Vital signs: Vital Signs - 8 hr 11/13/23 11:45 11/13/23 12:08 11/13/23 12:15 Pulse Rate 59 L 70 61 Respiratory Rate Blood Pressure Pulse Oximetry 99 99 99 Oxygen Delivery Method 11/13/23 12:30 11/13/23 12:45 11/13/23 13:00 Pulse Rate 65 60 59 L Respiratory Rate Blood Pressure Pulse Oximetry 98 98 98 Oxygen Delivery Method 11/13/23 13:15 11/13/23 13:30 11/13/23 14:14 Pulse Rate 63 65 70 Respiratory Rate 16 Blood Pressure 138/78 Pulse Oximetry 98 97 Oxygen Delivery Method Room Air Medical Decision Making Lab Data 11/13/23 10:11 11/13/23 10:12 Labs: Lab Results 11/13/23 11/13/23 11/13/23 Range/Units 10:11 10:12 10:13 WBC 5.7 (4.5-11.0) X10^3/uL RBC 4.77 (4.5-5.9) X10^6/uL Hgb 14.4 (13.5-17.5) g/dL Hct 42.5 (41-53) % MCV 89.2 (80-100) fL MCH 30.2 (26-34) PG MCHC 33.9 (30-36) % RDW 12.7 (11.6-14.8) % Plt Count 163 (150-400) X10^3/uL Neut % (Auto) 74.3 (50-75) % Lymph % (Auto) 15.7 L (25-40) % [place] % (Auto) 7.2 (3-14) % Eos % (Auto) 1.8 L (2-4) % Baso % (Auto) 1.0 (0-2) % Neut # (Auto) 4200 (2189-5094) /uL Lymph # (Auto) 900 L (0650-1168) /uL [place] # (Auto) 400 (0-900) /uL Eos # (Auto) 100 (0-450) /uL Baso # (Auto) 100 (0-100) /uL PT 10.3 (9.4-12.5) SECONDS INR 0.9 (0.9-1.3) APTT 30 (25.1-36.5) SECONDS VBG pH 7.33 (7.33-7.43) VBG pCO2 49.9 (45-50) mmHg VBG pO2 34 L (35-45) mmHg VBG HCO3 26 (24-28) mmol/L VBG Total CO2 26 (24-29) mmol/L VBG O2 Saturation 60 L (70-75) % VBG Base Excess -0.7 L (0-4) mmol/L FiO2 21 Sodium 132 L (137-145) mmol/L Potassium 4.4 (3.4-5.1) mmol/L Chloride 100 (98-107) mmol/L Carbon Dioxide 24 (22-32) mmol/L BUN 27 H (9-20) mg/dL Creatinine 1.06 (0.66-1.25) mg/dL Estimated GFR > 60 (>60) mL/min BUN/Creatinine Ratio 25.5 H (6-22) Glucose 548 H* (80-110) mg/dL Lactate 1.8 (0.7-2.1) mmol/L Calcium 9.2 (8.4-10.2) mg/dL Total Bilirubin 0.7 (0.2-1.3) mg/dL AST 19 (17-59) IU/L ALT 20 (<50) IU/L Alkaline Phosphatase 98 (38-126) U/L Total Protein 7.1 (6.3-8.2) g/dL Albumin 4.4 (3.5-5.0) g/dL Globulin 2.7 (1.7-4.1) g/dL Albumin/Globulin Ratio 1.6 (1.0-2.8) Lipase 155 (23-300) U/L Ketones < 0.20 (<0.27) mmol/L SARS-CoV-2 (PCR) (Negative) Influenza A (RT-PCR) (NEGATIVE) Influenza B (RT-PCR) (NEGATIVE) RSV (PCR) (Negative) 11/13/23 Range/Units 11:59 WBC (4.5-11.0) X10^3/uL RBC (4.5-5.9) X10^6/uL Hgb (13.5-17.5) g/dL Hct (41-53) % MCV (80-100) fL MCH (26-34) PG MCHC (30-36) % RDW (11.6-14.8) % Plt Count (150-400) X10^3/uL Neut % (Auto) (50-75) % Lymph % (Auto) (25-40) % [place] % (Auto) (3-14) % Eos % (Auto) (2-4) % Baso % (Auto) (0-2) % Neut # (Auto) (6193-7355) /uL Lymph # (Auto) (4832-2712) /uL [place] # (Auto) (0-900) /uL Eos # (Auto) (0-450) /uL Baso # (Auto) (0-100) /uL PT (9.4-12.5) SECONDS INR (0.9-1.3) APTT (25.1-36.5) SECONDS VBG pH (7.33-7.43) VBG pCO2 (45-50) mmHg VBG pO2 (35-45) mmHg VBG HCO3 (24-28) mmol/L VBG Total CO2 (24-29) mmol/L VBG O2 Saturation (70-75) % VBG Base Excess (0-4) mmol/L FiO2 Sodium (137-145) mmol/L Potassium (3.4-5.1) mmol/L Chloride (98-107) mmol/L Carbon Dioxide (22-32) mmol/L BUN (9-20) mg/dL Creatinine (0.66-1.25) mg/dL Estimated GFR (>60) mL/min BUN/Creatinine Ratio (6-22) Glucose (80-110) mg/dL Lactate (0.7-2.1) mmol/L Calcium (8.4-10.2) mg/dL Total Bilirubin (0.2-1.3) mg/dL AST (17-59) IU/L ALT (<50) IU/L Alkaline Phosphatase (38-126) U/L Total Protein (6.3-8.2) g/dL Albumin (3.5-5.0) g/dL Globulin (1.7-4.1) g/dL Albumin/Globulin Ratio (1.0-2.8) Lipase (23-300) U/L Ketones (<0.27) mmol/L SARS-CoV-2 (PCR) Negative (Negative) Influenza A (RT-PCR) Flu a negative (NEGATIVE) Influenza B (RT-PCR) Flu b negative (NEGATIVE) RSV (PCR) Negative (Negative) Point of Care Testing Glucose POC 281 Urine Dip Bedside Urine Glucose 250 mg/dl Bedside Urine Bilirubin - Negative Bedside Urine Ketone - Negative Urine Specific [place] 1.010 Bedside Urine Occult Blood - Negative Bedside Urine pH 5.0 Bedside Urine Protein - Negative Bedside Urine Urobilinogen - Negative Bedside Urine Nitrite - Negative Bedside Urine Leukocytes - Negative Esterase Point of care testing: Point of Care Testing Glucose POC 281 Urine Dip Bedside Urine Glucose 250 mg/dl Bedside Urine Bilirubin - Negative Bedside Urine Ketone - Negative Urine Specific [place] 1.010 Bedside Urine Occult Blood - Negative Bedside Urine pH 5.0 Bedside Urine Protein - Negative Bedside Urine Urobilinogen - Negative Bedside Urine Nitrite - Negative Bedside Urine Leukocytes - Negative Esterase Imaging Data CT scan - abdomen/pelvis: Radiologist's Impression: PROCEDURE: CT KIDNEY URETER BLADDER (KUB) INDICATIONS: left flank pain TECHNIQUE: Axial sections were acquired from the lung bases to the pubic symphysis. Coronal and sagittal reformats were performed. For radiation dose reduction, the following was used: automated exposure control, adjustment of mA and/or kV according to patient size. COMPARISON: [facility], CT, CT ABDOMEN PELVIS WITH CONTRAST, 08/24/2023, 14:51. FINDINGS: Image quality: Diagnostic. Lower Chest: No significant findings. URINARY: Right Kidney: No stones or hydronephrosis. Right Ureter: No hydroureter. Left Kidney: No stones or hydronephrosis. Left Ureter: No hydroureter. Bladder: Normal wall thickness. No stones. ABDOMEN: Liver: No contour-deforming solid mass. Gallbladder: No radiopaque gallstones or wall thickening. Biliary ducts: No biliary dilation. Pancreas: No ductal dilation. Spleen: Size is within normal limits. Adrenal Glands: No adrenal nodules. Stomach and Bowel: Normal colonic caliber, without significant wall thickening. Colonic diverticular present. No inflammatory change. Peritoneum: No abnormal intraperitoneal fluid. No free air. Ventral Wall: No hernia. Abdominal Nodes: No enlarged retroperitoneal or mesenteric lymph nodes. Vessels: Aorta and inferior vena cava are normal in size. PELVIS: Pelvic Organs: Unremarkable. Pelvic Nodes: Unremarkable. Miscellaneous: No inguinal hernias are seen. Bones: Unchanged L1 compression deformity. IMPRESSION: No obstructing stones or hydronephrosis. Diverticulosis. Dictated by: Karen Hanson M.D. on 11/13/2023 at 12:3 ECG Data Attestation: I personally reviewed and interpreted this ECG as follows: Interpretation: Normal sinus rhythm rate 58 ND interval 190 QRS [address] changes MDM Narrative Medical decision making narrative: Patient 58-year-old male history of insulin-dependent diabetes presenting today with hyperglycemia. He has a continuous glucose monitor and an insulin pump. He is concerned because he has elevated glucose. He does not have ketones no nausea vomiting or signs or symptoms of DKA. He has found not to have DKA he has a venous pH of 7.3, bicarb 24, glucose 528, anion gap 8, ketones negative Creatinine 1.0, potassium 4.4, WBC 5.7, hemoglobin 14.4, hematocrit 42.5, platelets 163 Respiratory panel negative Urinalysis negative CT noncontrast no evidence of kidney stone, no other abnormalities he has diverticulosis without diverticulitis Patient is found to have hyperglycemia without any sort of evidence of infection. No evidence of DKA. He has been bolusing himself insulin while in the ED received 1 L of IV fluids. Glucose has come down and actually for couple of hours it is 55 he is given food and sandwich. He feels ready able to go home. Recommend that he follow-up with his PCP. It appears that his glucose has been quite elevated previously as well Discharge Plan Departure Patient Disposition: Home Clinical Impression: Hyperglycemia Instructions: DI for Hyperglycemia -- Adult Activity Restrictions/Additional Instructions: *You have been diagnosed with hyperglycemia *What to do: At this time there is no cause for your hyperglycemia. No evidence of DKA *Continue to take medications as directed *Follow up with your primary care provider in 2-3 days or call [phone] *Return to ER if you should have increasing nausea vomiting ketones or any new, worsening or concerning symptoms Prescriptions: No Action insulin lispro [Humalog U-100 Insulin] 100 UNIT/1 ML solution See Rx Instructions .ROUTE .COMPLEX Qty: 0 Rx Instructions: per pump atorvastatin 40 mg tablet 40 mg PO BEDTIME Patient Comments: take 1 tablet by mouth at bedtime /// NEED TO DO LABWORK. mirtazapine 45 mg tablet 45 mg PO BEDTIME duloxetine 30 mg Capsule, Delayed Rel Sprinkle 30 mg PO DAILY Referrals: Darell Allison MD [Family Provider] - Stand Alone Forms: Patient Portal/API
--- NOTE | 2023-11-13 11:28 | DI.CT.S_ITS ---
PROCEDURE: CT KIDNEY URETER BLADDER (KUB) INDICATIONS: left flank pain TECHNIQUE: Axial sections were acquired from the lung bases to the pubic symphysis. Coronal and sagittal reformats were performed. For radiation dose reduction, the following was used: automated exposure control, adjustment of mA and/or kV according to patient size. COMPARISON: [facility], CT, CT ABDOMEN PELVIS WITH CONTRAST, 08/24/2023, 14:51. FINDINGS: Image quality: Diagnostic. Lower Chest: No significant findings. URINARY: Right Kidney: No stones or hydronephrosis. Right Ureter: No hydroureter. Left Kidney: No stones or hydronephrosis. Left Ureter: No hydroureter. Bladder: Normal wall thickness. No stones. ABDOMEN: Liver: No contour-deforming solid mass. Gallbladder: No radiopaque gallstones or wall thickening. Biliary ducts: No biliary dilation. Pancreas: No ductal dilation. Spleen: Size is within normal limits. Adrenal Glands: No adrenal nodules. Stomach and Bowel: Normal colonic caliber, without significant wall thickening. Colonic diverticular present. No inflammatory change. Peritoneum: No abnormal intraperitoneal fluid. No free air. Ventral Wall: No hernia. Abdominal Nodes: No enlarged retroperitoneal or mesenteric lymph nodes. Vessels: Aorta and inferior vena cava are normal in size. PELVIS: Pelvic Organs: Unremarkable. Pelvic Nodes: Unremarkable. Miscellaneous: No inguinal hernias are seen. Bones: Unchanged L1 compression deformity. IMPRESSION: No obstructing stones or hydronephrosis. Diverticulosis. Dictated by: Karen Hanson M.D. on 11/13/2023 at 12:35 Approved by: Karen Hanson M.D. on 11/13/2023 at 12:43
--- NOTE | 2023-11-13 11:52 | EKG_ITS ---
[facility] [address] [place] [address] Test Date: 2023-11-13 Pat Name: Niels Blackwood Department: [facility] Room: Gender: Male Power Press Tender: DIMITRIOS : 1965 Requested By: Order Number: [id number] Reading MD: Chaim Chavis Measurements Intervals [place] Rate: 58 P: 75 NC: 190 QRS: 84 QRSD: 82 T: 67 QT: 444 QTc: 435 Interpretive Statements Sinus bradycardia Electronically Signed On 11-15-2023 16:44:10 PDT by Chaim Chavis
[2023-11-13 12:44] LABS: Influenza A - CEPHEID Flu A NEGATIVE (NEGATIVE); Influenza B - CEPHEID Flu B NEGATIVE (NEGATIVE); Respiratory Syncytial Virus Negative (Negative)
[2023-11-13 13:08] LABS: COVID-19 CEPHEID 4-PLEX PCR Negative (Negative)
== END 2023-11-13 14:17 | disposition home or self-care (01) ==
PROVIDERS: Emergency Provider Emergency Medicine; Family Provider Family Medicine; PCP Internal Medicine
DX: E11.65 Type 2 diabetes mellitus with hyperglycemia (principal); Z79.4 Long term (current) use of insulin; Z96.41 Presence of insulin pump (external) (internal)
CPT/HCPCS: 0241U; 36415; 74176; 80053; 81003; 82009; 82805; 82962; 83605; 83690; 85025; 85610; 85730; 87040; 93005; 99284

== ENCOUNTER 2023-12-26 12:34 | Emergency (ER) | payer MEDICARE, SELFPAY ==
[2022-07-04 19:23] VITALS: BMI 23.9
[2023-12-26] VITALS (15 sets, daily range): BP systolic 132–169; BP diastolic 69–87; PULSE 47–70; RESP 13–22; TEMP 36.2; O2SAT 97–100; BMI 25.7
--- NOTE | 2023-12-26 12:42 | DI.RAD.S_ITS ---
PROCEDURE: XR CHEST 1V INDICATIONS: chest pain TECHNIQUE: One view of the chest was acquired. COMPARISON: [facility], PAMELA, XR CHEST 1V, 07/04/2022, 14:02. [facility], PAMELA, CHEST 1 VIEW, 07/28/2016, 20:50. FINDINGS: Surgical changes and devices: None. Lungs and pleura: Lungs are clear. No pleural effusions or pneumothorax. Mediastinum: Mediastinal contours appear normal. Heart size is normal. Bones and chest wall: No suspicious bony lesions. Overlying soft tissues appear unremarkable. IMPRESSION: No acute cardiopulmonary abnormality is seen. Dictated by: Hugh Sandoval M.D. on 12/26/2023 at 13:40 Approved by: Hugh Sandoval M.D. on 12/26/2023 at 13:40
--- NOTE | 2023-12-26 12:42 | EKG_ITS ---
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
[2023-12-26 13:09] LABS: Add Manual Diff / Slide Review NO; Basophils Absolute Auto 100 /uL (0-100); Basophils Percent Auto 1.2 % (0-2); Eosinophils Absolute Auto 100 /uL (0-450); Eosinophils Percent Auto 1.2 % (2-4); Hematocrit 40.9 % (41-53); Lymphocytes Absolute Auto 1200 /uL (1100-4500); Lymphocytes Percent Auto 18.8 % (25-40); Mean Corpuscular HGB Conc 34.4 % (30-36); Mean Corpuscular Hemoglobin 30.3 PG (26-34); Mean Corpuscular Volume 88.1 fL (80-100); Monocytes Absolute Auto 500 /uL (0-900); Neutrophils Absolute Auto 4700 /uL (1500-7000); Neutrophils Percent Auto 71.8 % (50-75); Platelet Count 223 X10^3/uL (150-400); Red Blood Cell Count 4.64 X10^6/uL (4.5-5.9); Red Cell Distribution Width 13.2 % (11.6-14.8); White Blood Cell Count 6.5 X10^3/uL (4.5-11.0)
[2023-12-26 13:30] LABS: Prothrombin Time 11.9 SECONDS (9.4-12.5)
[2023-12-26 13:32] LABS: PTT Partial Thromboplastin Tim 19 SECONDS (25.1-36.5)
[2023-12-26 13:35] LABS: Alanine Aminotransferase 19 IU/L (<50); Albumin 3.9 g/dL (3.5-5.0); Albumin Globulin Ratio 1.6 (1.0-2.8); Alkaline Phosphatase 53 U/L (38-126); Aspartate Aminotransferase 25 IU/L (17-59); BUN Creatinine Ratio 16.8 (6-22); Bilirubin Total 1.2 mg/dL (0.2-1.3); Blood Urea Nitrogen 16 mg/dL (9-20); Calcium 8.6 mg/dL (8.4-10.2); Carbon Dioxide 25 mmol/L (22-32); Chloride 103 mmol/L (98-107); Creatine Kinase 61 U/L (55-170); Estimated Glomerular Filt Rate > 60 mL/min (>60); Globulin 2.5 g/dL (1.7-4.1); Glucose 237 mg/dL (80-110); HEMOLYSIS 43 (0-50); Lipase 79 U/L (23-300); Magnesium 1.9 mg/dL (1.6-2.3); Potassium 4.5 mmol/L (3.4-5.1); Sodium 134 mmol/L (137-145); Total Protein 6.4 g/dL (6.3-8.2)
[2023-12-26 13:46] LABS: NT-proBNP (BNP-Adult 18+) 49 pg/mL (<125); Troponin I < 0.012 ng/mL (0.01-0.034)
[2023-12-26] MEDS: ASPIRIN 81 MG CHEW TAB 324 MG PO (13:49)
--- NOTE | 2023-12-26 15:32 | EKG_ITS ---
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
[2023-12-26 16:08] LABS: Troponin I < 0.012 ng/mL (0.01-0.034)
--- NOTE | 2023-12-26 16:08 | ED_ITS ---
HPI - Chest Pain General Chief Complaint: Chest Pain Stated Complaint: dizziness, low heart rate Time Seen by Provider: 12/26/23 16:08 Source: patient Mode of arrival: Ambulatory History of Present Illness HPI narrative: This is a 58-year-old male with history of prior lacunar infarct, ADHD, cognitive decline, hypertension, BPH who presents with complaint of feeling unwell since Monday. Patient states he felt achy starting Monday just sweaty and kind of unwell started feeling dizzy off balance and having vertigo type symptoms Monday. Patient states he has had vertigo but this was different he typically has a headache and did not. States this was similar in the sense that he felt off balance, would have vomiting any time he would get up or try to move. He does not appreciate if it was worse if he moves his head. He denies any headaches no vision changes no numbness tingling or weakness. Had nausea and vomiting on Monday has since improved. Not having any persistent vomiting. He states his symptoms have started to improve but have not resolved. States no major changes to bowel movements. No fevers, had a little bit of congestion. Describes little bit of left chest discomfort yesterday. No shortness of breath currently but sometimes when he is up and moving around when he is feeling the symptoms and vomiting. No issues with urination, no incontinence. Patient states he takes Vyvanse for ADHD, tamsulosin, mirtazapine, donepezil, losartan. He has not on any aspirin or thinners. Has allergies to doxycycline and codeine. Has had a prior lacunar infarct but had more lateralizing symptoms. No tobacco, occasional alcohol, no recreational drugs. Dr. Bowen is his primary care physician. He does have a caregiver that assist him. Related Data Home Medications Medication Instructions Recorded Confirmed insulin lispro 100 unit/mL See Rx Instructions .Route 10/07/10 07/04/22 subcutaneous solution (Humalog .COMPLEX ##0 U-100 Insulin) atorvastatin 40 mg tablet 40 mg PO BEDTIME 07/04/22 07/04/22 duloxetine 30 mg capsule,delayed 30 mg PO DAILY 07/04/22 07/04/22 release sprinkle mirtazapine 45 mg tablet 45 mg PO BEDTIME 07/04/22 07/04/22 Previous Rx's Medication Instructions Recorded meclizine 25 mg chewable tablet 25 mg PO QID PRN vertigo #20 tabs 12/26/23 Allergies Allergy/AdvReac Type Severity Reaction Status Date / Time codeine [CODEINE] Allergy Severe Unconscious Verified 12/26/23 12:41 doxycycline [DOXYCYCLINE] Allergy Unknown Verified 12/26/23 12:41 omeprazole [OMEPRAZOLE] Allergy Unknown Verified 12/26/23 12:41 insulin aspart AdvReac Mild Rash at Verified 12/26/23 12:41 [From Novolog U-100 Insulin injection aspart] site Review of Systems Review of Systems ROS Unobtainable: All systems reviewed & are unremarkable except as noted in HPI and below Patient History Medical History Insulin dependent diabetes mellitus Social History household members: spouse Smoking Status: Former smoker alcohol intake: current substance use type: does not use Smoking Status: Former smoker alcohol intake frequency: 0-2 drinks per day Substance Use Type: marijuana Exam Narrative Exam Narrative: GEN: well nourished, well appearing male, alert and oriented x 3, patient appears to be in mild distress. HEENT: Atraumatic, pupils are equal round reactive to light, extraocular movements are intact, no nystagmus, nares are clear, TMs are clear with no fluid, there is no conjunctival pallor. Throat is clear without any exudates, erythema, tonsillar enlargement or uvular deviation, no facial droop HEART: Regular rate and rhythm without murmur, clicks, rubs. Pulses are equal in upper and lower extremities LUNGS:Lungs clear to auscultation, no wheezes, rales, crackles, chest moves symmetrically ABD:bowel sounds normal, soft, non-tender, no guarding, rebound, rigidity, no masses noted, no hepatosplenomegaly :No CVA tenderness MSCL: Non-tender, no muscle atrophy, muscles strength 5/5 upper and lower extremities, full range of motion. NEURO:CN 2-12 intact, sensation normal, finger nose finger test normal, heel haynes test normal, romberg normal Initial Vital Signs Initial Vital Signs: Vital Signs Temperature 97.2 F L 12/26/23 12:38 Pulse Rate 62 12/26/23 12:38 Respiratory Rate 18 12/26/23 12:38 Blood Pressure 147/70 H 12/26/23 12:38 Pulse Oximetry 100 12/26/23 12:38 Oxygen Delivery Method Room Air 12/26/23 12:38 Scores NIH Stroke Scale Level of Conciousness: Alert, keenly responsive Ask month/age: Answers both questions correctly. Open/close eyes, close hand: Performs both tasks correctly Best gaze horizontal: Normal Visual pavon: No visual loss Facial palsy: Normal symetrical movement Left arm drift: No drift for full 10 sec Right arm drift: No drift for full 10 sec Left leg drift: No drift for full 5 sec Right leg drift: No drift for full 5 sec Limb ataxia: Absent Sensory on face/arms/legs: Normal, no sensory loss Best language: No aphasia, normal Dysarthria: Normal Extinction or inattention: No abnormality Total NIH Stroke scale score: 0 Course Orders Ordered: ED Orders 12/26/23 12:42 XR chest 1V Stat EKG-12 Lead Stat 12/26/23 12:45 Complete Blood Count AUTO DIFF Stat 12/26/23 13:10 Comprehensive Metabolic Panel Stat Lipase Stat Magnesium Stat NT-proBNP (BNP-Adult 18+) Stat PTT Partial Thromboplastin Francis Stat Prothrombin Time INR Stat Troponin & CK Cardiac Panel Stat 12/26/23 15:32 Respiratory Panel (Film Array) Stat Troponin I Stat 12/26/23 15:36 EKG-12 Lead Stat 12/26/23 16:29 CT head/brain wo con Stat Discontinued Medications Aspirin (Aspirin 81 Mg Chew Tab) 324 mg PO NOW ONE Stop: 12/26/23 12:43 Last Admin: 12/26/23 13:49 Dose: 324 mg Documented By: MAGDALENO Meclizine HCl (Meclizine Hcl 12.5 Mg Tablet) 50 mg PO NOW ONE Stop: 12/26/23 16:31 Last Admin: 12/26/23 16:35 Dose: 50 mg Documented By: TETE Vital Signs Vital signs: Vital Signs - 8 hr 12/26/23 12:38 12/26/23 13:30 12/26/23 14:00 Temperature 97.2 F L Pulse Rate 62 62 65 Respiratory Rate 18 18 18 Blood Pressure 147/70 H 132/87 145/86 H Pulse Oximetry 100 98 99 Oxygen Delivery Method Room Air Room Air Room Air 12/26/23 14:30 12/26/23 14:56 12/26/23 14:57 Temperature Pulse Rate 62 58 L Respiratory Rate 16 Blood Pressure 138/79 153/80 H Pulse Oximetry 99 Oxygen Delivery Method Room Air 12/26/23 14:57 12/26/23 15:00 12/26/23 15:30 Temperature Pulse Rate 51 L 47 L 47 L Respiratory Rate 21 16 17 Blood Pressure Pulse Oximetry 99 99 99 Oxygen Delivery Method Room Air 12/26/23 15:44 12/26/23 15:44 12/26/23 16:00 Temperature Pulse Rate 49 L 50 L Respiratory Rate 17 18 Blood Pressure 143/84 H Pulse Oximetry 99 99 Oxygen Delivery Method 12/26/23 16:30 12/26/23 16:31 12/26/23 16:31 Temperature Pulse Rate 69 70 Respiratory Rate 19 13 Blood Pressure 169/84 H Pulse Oximetry 99 99 Oxygen Delivery Method 12/26/23 17:00 12/26/23 17:30 12/26/23 17:40 Temperature Pulse Rate 59 L 59 L Respiratory Rate 18 22 Blood Pressure 146/69 H Pulse Oximetry 97 100 Oxygen Delivery Method 12/26/23 17:40 Temperature Pulse Rate 58 L Respiratory Rate 14 Blood Pressure Pulse Oximetry 100 Oxygen Delivery Method Room Air MDM - Chest Pain Lab Data 12/26/23 12:45 12/26/23 13:10 Labs: Lab Results 12/26/23 12/26/23 12/26/23 Range/Units 12:45 13:10 15:32 WBC 6.5 (4.5-11.0) X10^3/uL RBC 4.64 (4.5-5.9) X10^6/uL Hgb 14.0 (13.5-17.5) g/dL Hct 40.9 L (41-53) % MCV 88.1 (80-100) fL MCH 30.3 (26-34) PG MCHC 34.4 (30-36) % RDW 13.2 (11.6-14.8) % Plt Count 223 (150-400) X10^3/uL Neut % (Auto) 71.8 (50-75) % Lymph % (Auto) 18.8 L (25-40) % Cassia % (Auto) 7.0 (3-14) % Eos % (Auto) 1.2 L (2-4) % Baso % (Auto) 1.2 (0-2) % Neut # (Auto) 4700 (6423-0422) /uL Lymph # (Auto) 1200 (7570-9752) /uL Cassia # (Auto) 500 (0-900) /uL Eos # (Auto) 100 (0-450) /uL Baso # (Auto) 100 (0-100) /uL PT 11.9 (9.4-12.5) SECONDS INR 1.0 (0.9-1.3) APTT 19 L (25.1-36.5) SECONDS Sodium 134 L (137-145) mmol/L Potassium 4.5 (3.4-5.1) mmol/L Chloride 103 (98-107) mmol/L Carbon Dioxide 25 (22-32) mmol/L BUN 16 (9-20) mg/dL Creatinine 0.95 (0.66-1.25) mg/dL Estimated GFR > 60 (>60) mL/min BUN/Creatinine Ratio 16.8 (6-22) Glucose 237 H (80-110) mg/dL Calcium 8.6 (8.4-10.2) mg/dL Magnesium 1.9 (1.6-2.3) mg/dL Total Bilirubin 1.2 (0.2-1.3) mg/dL AST 25 (17-59) IU/L ALT 19 (<50) IU/L Alkaline Phosphatase 53 (38-126) U/L Total Creatine Kinase 61 (55-170) U/L Troponin I < 0.012 < 0.012 (0.01-0.034) ng/mL NT-Pro-B Natriuret Pep 49 (<125) pg/mL Total Protein 6.4 (6.3-8.2) g/dL Albumin 3.9 (3.5-5.0) g/dL Globulin 2.5 (1.7-4.1) g/dL Albumin/Globulin Ratio 1.6 (1.0-2.8) Lipase 79 (23-300) U/L Chlamy pneumoniae PCR Not detected (Not Detect) Adenovirus (PCR) Not detected (Not Detect) B.parapertussis DNA PCR Not detected (Not Detecte) Coronavirus OC43 (PCR) Not detected (Not Detect) Coronavirus HKU1 (PCR) Not detected (Not Detect) Coronavirus 229E (PCR) Not detected (Not Detect) SARS-CoV-2 (PCR) Not detected (Not Detecte) Coronavirus NL63 (PCR) Not detected (Not Detect) Human Metapneumovir PCR Not detected (Not Detect) Influenza Type A (PCR) Not detected (Not Detect) Influenza Type B (PCR) Not detected (Not Detect) M. pneumoniae (PCR) Not detected (Not Detect) Parainfluenza 1 (PCR) Not detected (Not Detect) Parainfluenza 2 (PCR) Not detected (Not Detect) Parainfluenza 3 (PCR) Not detected (Not Detect) Parainfluenza 4 (PCR) Not detected (Not Detect) RSV (PCR) Not detected (Not Detect) Entero/Rhino (PCR) Not detected (Not Detect) Imaging Data Chest x-ray: Radiologist's Impression: [address] [address] XRay Report Signed Patient: Niels Blackwood MR#: [id number] : 1965 Acct:[id number] Age/Sex: 58 / M Date of Service: 12/26/23 Loc: ED Accession Number: [id number] Procedure: XR chest 1V Ordering Provider: Dipti Trujillo D.O. PROCEDURE: XR CHEST 1V INDICATIONS: chest pain TECHNIQUE: One view of the chest was acquired. COMPARISON: [facility], , XR CHEST 1V, 07/04/2022, 14:02. [facility], , CHEST 1 VIEW, 07/28/2016, 20:50. FINDINGS: Surgical changes and devices: None. Lungs and pleura: Lungs are clear. No pleural effusions or pneumothorax. Mediastinum: Mediastinal contours appear normal. Heart size is normal. Bones and chest wall: No suspicious bony lesions. Overlying soft tissues appear unremarkable. IMPRESSION: No acute cardiopulmonary abnormality is seen. Dictated by: Hugh Sandoval M.D. on 12/26/2023 at 13:40 Approved by: Hugh Sandoval M.D. on 12/26/2023 at 13:40 CT scan - head: Radiologist's Impression: [address] [address] XRay Report? Signed Patient: Miller Espinoza MR#: [id number] : 12/22/1952 Acct:[id number] Age/Sex: 71 / M Date of Service: 12/26/23 Loc: ED Accession Number: [id number]? ? Procedure: XR chest 1V Ordering Provider: Dipti Trujillo D.O. PROCEDURE:? XR CHEST 1V ? INDICATIONS:? Shortness of breath ? TECHNIQUE:? One view of the chest was acquired.?? ? COMPARISON:? [facility], CR, XR CHEST 1V, 05/16/2023, 8:22. ? FINDINGS:?? ? Surgical changes and devices:? None.?? ? Lungs and pleura:? Lungs are clear.? No pleural effusions or pneumothorax.?? ? Mediastinum:? Mediastinal contours appear normal.? Heart size is normal.?? ? Bones and chest wall:? No suspicious bony lesions.? Overlying soft tissues appear? unremarkable.? IMPRESSION:?? ? No acute cardiopulmonary abnormality is seen.? Dictated by: Hugh Sandoval M.D. on 12/26/2023 at 13:40? ? ? Approved by: Hugh Sandoval M.D. on 12/26/2023 at 13:41? ? ECG Data Attestation: I personally reviewed and interpreted this ECG as follows: Prior ECG tracings: available for review Interpretation: Sinus bradycardia rate of 53 AK 194 QRS 86 QTC 429, no acute ST elevation depression noted. Patient has prior from 11/13/2023 which appears similar. EKG 2. Shows sinus bradycardia rate of 50 AK 192 QRS 88 QTC of 439. No acute ST changes. MDM Narrative Medical decision making narrative: History of insulin-dependent diabetes describes dizziness since Monday worse with sitting to standing does describe some shortness of breath heart feels funny but no and nausea or vomiting. Labs show white count of 6.5 hemoglobin of 14 platelets of 223. Coags overall appropriate sodium slightly low 134 potassium 4.5 chloride 103 CO2 25 BUN 16 creatinine 0.95 glucose elevated at 237 patient has been as as 700 past visits and a glucose of 548 in October. LFTs are negative. Troponins less than 0.012 and on repeat is less than 0.012. Chest x-ray shows no acute EKG shows sinus bradycardia no acute ST changes compared to prior from October 2023. Patient's repeat EKG also appears similar today. Respiratory panel is negative. 58-year-old male describing dizziness somewhat sounds like vertigo but patient states it does feel similar. Has had headaches with his vertigo in the past does not have any headache, no other neurologic changes described. Describes little bit of shortness of breath but only when he is having these episodes and when he is up and walking and moving. He states it is actually improving it started on Monday. Does not have a history of stroke but did not have vertigo symptoms with his stroke in the past. Cardiac workups overall appropriate, no signs of fluid overload, respiratory panel negative chest x-ray is clear. Discussed with the patient head CT non-con obtained to evaluate for mass or potential bleed. Discussed MR to evaluate for stroke but patient is reluctant to pursue this. Was given a dose of meclizine here. Head CT is negative. Patient states he feels better with the meclizine. Discussed MR to evaluate for possible stroke he has had about 3 days if symptoms of vertigo is starting to improve gait was little bit off per nursing. Patient appreciates this is well. Has a negative NIH overall. Patient prefers to return home, he has had a history of vertigo in the past but states this did feel little bit different. Patient is far outside the window for intervention in terms of code IR or tPA and felt appropriate for discharge home at this time. Prescription for meclizine was given did ask that he follow up with primary care. Discussed return precautions as well. Discharge Plan Departure Patient Disposition: Home Clinical Impression: Vertigo Instructions: Vertigo Activity Restrictions/Additional Instructions: Follow up for recheck with your physician, if you are having persistent symptoms of dizziness or vertigo I would recommend repeat evaluation. As discussed this maybe exacerbation of your vertigo symptoms from the past but maybe worthwhile to follow up with your physician discussed MRI if you are having persistent symptoms. You can take meclizine 1-2 tablets every 6 hours as needed for vertigo/dizziness. Prescription sent to [facility] in [place]. Please return for severe headaches, sudden vision changes, new facial droop, new numbness tingling or weakness of the upper lower extremities, increasing difficulty with gait, persistent vomiting, increasing shortness of breath or chest pain or other new or concerning changes. Prescriptions: New meclizine 25 mg tablet,chewable 25 mg PO QID PRN (Reason: vertigo) Qty: 20 0RF No Action insulin lispro [Humalog U-100 Insulin] 100 UNIT/1 ML solution See Rx Instructions .ROUTE .COMPLEX Qty: 0 Rx Instructions: per pump atorvastatin 40 mg tablet 40 mg PO BEDTIME Patient Comments: take 1 tablet by mouth at bedtime /// NEED TO DO LABWORK. mirtazapine 45 mg tablet 45 mg PO BEDTIME duloxetine 30 mg Capsule, Delayed Rel Sprinkle 30 mg PO DAILY Referrals: Dangelo Bowen MD [Primary Care Provider] - Stand Alone Forms: Patient Portal/API
[2023-12-26 16:28] LABS: Adenovirus Not Detected (Not Detect); B. parapertussis Not Detected (Not Detecte); Bordetella pertussis Not Detected (Not Detect); Chlamydophila pneumoniae Not Detected (Not Detect); Coronavirus 229E Not Detected (Not Detect); Coronavirus HKU1 Not Detected (Not Detect); Coronavirus NL 63 Not Detected (Not Detect); Coronavirus OC43 Not Detected (Not Detect); Human Metapneumovirus Not Detected (Not Detect); Human Rhinovirus/Enterovirus Not Detected (Not Detect); Influenza A Not Detected (Not Detect); Influenza B Not Detected (Not Detect); Mycoplasma pneumoniae Not Detected (Not Detect); Parainfluenza Virus 1 Not Detected (Not Detect); Parainfluenza Virus 2 Not Detected (Not Detect); Parainfluenza Virus 3 Not Detected (Not Detect); Parainfluenza Virus 4 Not Detected (Not Detect); Respiratory Syncytial Virus Not Detected (Not Detect); SARS- CoV-2 Not Detected (Not Detecte)
--- NOTE | 2023-12-26 16:29 | DI.CT.S_ITS ---
PROCEDURE: CT HEAD/BRAIN WO CON INDICATIONS: dizzy, ? vertigo, hx lacunar cva and vertigo in past TECHNIQUE: Noncontrast 4.5 mm thick angled axial sections acquired from the foramen magnum to the vertex, with coronal and sagittal reformats. For radiation dose reduction, the following was used: automated exposure control, adjustment of mA and/or kV according to patient size. COMPARISON: None available. FINDINGS: Image quality: Diagnostic. CSF spaces: Basal cisterns are patent. No extra-axial fluid collections. Ventricles are normal in size and shape. Brain: No midline shift. No intracranial masses or hemorrhage. No area of hypodensity in a large vascular distribution to suggest acute infarction. Skull and face: Calvarium and visualized facial bones are intact, without suspicious lesions. Sinuses: Visualized sinuses and mastoids are clear. IMPRESSION: No acute intracranial abnormality. Dictated by: Stefan Tsang M.D. on 12/26/2023 at 17:11 Approved by: Stefan Tsang M.D. on 12/26/2023 at 17:14
[2023-12-26] MEDS: MECLIZINE HCL 12.5 MG TABLET 50 MG PO (16:35)
== END 2023-12-26 17:46 | disposition home or self-care (01) ==
PROVIDERS: Emergency Provider Emergency Medicine; Family Provider Family Medicine; PCP Internal Medicine
DX: R42 Dizziness and giddiness (principal); R07.9 Chest pain, unspecified; R00.1 Bradycardia, unspecified; Z11.52 Encounter for screening for COVID-19
CPT/HCPCS: 70450; 71045; 80053; 82550; 83690; 83735; 83880; 84484; 85025; 85610; 85730; 87633; 93005; 93010; 99284

== ENCOUNTER → 2023-12-29 16:11 | Outpatient (CLI) | payer MEDICARE, SELFPAY ==
[2022-07-04 19:23] VITALS: BMI 23.9
--- NOTE | 2023-12-29 16:13 | DI.MRI.S_ITS ---
PROCEDURE: MR LUMBAR SPINE WO CON INDICATIONS: BACK PAIN,LUMBAR RT SIDE RADICULAR PAIN TECHNIQUE: Noncontrast sagittal T1 spin echo and T2 fast echo, sagittal STIR, and T2 fast spin echo through the lumbar spine. In cases with scoliosis, additional coronal T2 fast spin echo may be performed. COMPARISON: [facility], CT, CT KIDNEY URETER BLADDER (KUB), 11/13/2023, 12:03. FINDINGS: Image quality: Excellent. Alignment and Curvature: There is normal bony alignment. Bones: Chronic L1 and L5 compression fractures stable compared to prior CT scan. Modic type 2 reactive endplate changes noted adjacent to the T12-L1, L2-L3, L4-L5 discs. No acute vertebral body compression fractures. Spinal Cord: Conus medullaris terminates at the T11-12 disc level. Visualized cord demonstrates normal signal and size. Paraspinous Soft Tissues: No paravertebral masses. T12-L1: Loss of disc signal and height. Mild to moderate diffuse disc bulge. Mild bilateral facet hypertrophy. Mild narrowing of the central canal. Mild bilateral neural foraminal narrowing. No neural compression. L1-L2: Loss of disc signal and disc height. Mild, diffuse disc bulge. Mild bilateral facet hypertrophy. Mild narrowing of the central canal. No neural foraminal narrowing. No neural compression. L2-L3: Loss of disc signal and height. Mild, diffuse disc bulge. Mild bilateral facet hypertrophy. Mild narrowing of the central canal. Moderate right and mild left neural foraminal narrowing. No neural compression. L3-L4: Loss of disc signal. Mild, diffuse disc bulge. Mild bilateral facet hypertrophy. No central stenosis. Mild bilateral neural foraminal narrowing. No neural compression. L4-L5: Loss of disc signal and slight loss of disc height. Mild, diffuse disc bulge. Mild bilateral facet hypertrophy. Mild narrowing of the central canal. Moderate bilateral neural foraminal narrowing. No neural compression. L5-S1: Disc has a normal appearance. Mild bilateral facet hypertrophy. No central stenosis. No neural foraminal narrowing. No neural compression. IMPRESSION: Multilevel degenerative disc disease.. Multilevel facet arthropathy. No severe central canal stenosis.. No severe neural foraminal narrowing. No neural compression. Chronic L1 and L5 compression fractures. No acute vertebral body compression fracture. Dictated by: Roxana Newton MD, PhD on 01/01/2024 at 12:43 Approved by: Roxana Newton MD, PhD on 01/01/2024 at 12:49
== END ==
LOC: MRI 16:12
PROVIDERS: Family Provider Family Medicine; PCP Internal Medicine; Referring Provider Internal Medicine; Visit Provider Internal Medicine
DX: M51.36 Other intervertebral disc degeneration, lumbar region (principal); M51.16 Intervertebral disc disorders with radiculopathy, lumbar region; M48.061 Spinal stenosis, lumbar region without neurogenic claudication; M47.26 Other spondylosis with radiculopathy, lumbar region; M47.27 Other spondylosis with radiculopathy, lumbosacral region; M48.56XA Collapsed vertebra, not elsewhere classified, lumbar region, initial encounter for fracture
CPT/HCPCS: 72148

== ENCOUNTER 2024-04-22 12:25 | Emergency (ER) | payer MEDICARE, SELFPAY ==
[2022-07-04 19:23] VITALS: BMI 23.9
[2024-04-22] VITALS (13 sets, daily range): BP systolic 102–143; BP diastolic 60–75; PULSE 58–84; RESP 11–26; TEMP 37.1; O2SAT 97–100; BMI 25.7
--- NOTE | 2024-04-22 12:40 | EKG_ITS ---
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
--- NOTE | 2024-04-22 13:02 | DI.RAD.S_ITS ---
PROCEDURE: XR CHEST 1V INDICATIONS: chest pain TECHNIQUE: One view of the chest was acquired. COMPARISON: [facility], CR, XR CHEST 1V, 12/26/2023, 12:44. [facility], CR, XR CHEST 1V, 07/04/2022, 14:02. FINDINGS: Surgical changes and devices: None. Lungs and pleura: Lungs are clear. No pleural effusions or pneumothorax. Mediastinum: Mediastinal contours appear normal. Heart size is normal. Bones and chest wall: No suspicious bony lesions. Overlying soft tissues appear unremarkable. IMPRESSION: No acute cardiopulmonary abnormality is seen. Dictated by: Randall Villegas M.D. on 04/22/2024 at 13:47 Approved by: Randall Villegas M.D. on 04/22/2024 at 13:47
[2024-04-22] MEDS: SODIUM CHLORIDE 0.9% 1,000 ML 1000 ML IV (13:10)
[2024-04-22 13:36] LABS: Add Manual Diff / Slide Review NO; Basophils Absolute Auto 100 /uL (0-100); Basophils Percent Auto 1.2 % (0-2); Eosinophils Absolute Auto 100 /uL (0-450); Eosinophils Percent Auto 1.2 % (2-4); Hemoglobin 13.2 g/dL (13.5-17.5); Lymphocytes Absolute Auto 900 /uL (1100-4500); Lymphocytes Percent Auto 18.7 % (25-40); Mean Corpuscular HGB Conc 33.9 % (30-36); Mean Corpuscular Hemoglobin 30.2 PG (26-34); Mean Corpuscular Volume 89.1 fL (80-100); Monocytes Absolute Auto 400 /uL (0-900); Monocytes Percent Auto 7.3 % (3-14); Neutrophils Absolute Auto 3600 /uL (1500-7000); Neutrophils Percent Auto 71.6 % (50-75); Platelet Count 211 X10^3/uL (150-400); Red Blood Cell Count 4.37 X10^6/uL (4.5-5.9)
[2024-04-22 13:39] LABS: Base Excess VBG -0.8 mmol/L (0-4); HCO3 VBG 24 mmol/L (24-28); Oxygen Saturation VBG 65 % (70-75); PCO2 VBG 38.3 mmHg (45-50); PO2 VBG 34 mmHg (35-45); Total CO2 VBG 23 mmol/L (24-29)
[2024-04-22 13:48] LABS: Alanine Aminotransferase 24 IU/L (<50); Albumin 3.5 g/dL (3.5-5.0); Albumin Globulin Ratio 1.3 (1.0-2.8); Alkaline Phosphatase 55 U/L (38-126); Aspartate Aminotransferase 26 IU/L (17-59); BUN Creatinine Ratio 19.8 (6-22); Bilirubin Total 1.1 mg/dL (0.2-1.3); Blood Urea Nitrogen 19 mg/dL (9-20); Calcium 8.8 mg/dL (8.4-10.2); Carbon Dioxide 25 mmol/L (22-32); Chloride 104 mmol/L (98-107); Creatine Kinase 74 U/L (55-170); Estimated Glomerular Filt Rate > 60 mL/min (>60); Globulin 2.7 g/dL (1.7-4.1); Glucose 382 mg/dL (80-110); HEMOLYSIS 15 (0-50); Potassium 4.4 mmol/L (3.4-5.1); Sodium 132 mmol/L (137-145); Total Protein 6.2 g/dL (6.3-8.2)
[2024-04-22 13:55] LABS: Ketones (Beta-Hydroxybutyrate) 0.07 mmol/L (<0.27)
[2024-04-22 14:01] LABS: Troponin I < 0.012 ng/mL (0.01-0.034)
--- NOTE | 2024-04-22 15:00 | ED_ITS ---
HPI - General Adult General Chief complaint: Diabetic Problem Stated complaint: pain and pressure in chest worse with movement Time Seen by Provider: 04/22/24 15:00 History of Present Illness HPI narrative: Patient 58-year-old male history of insulin-dependent diabetes hyperlipidemia presenting today with chest pain. 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 It was non radiating no significant shortness of breath. It lasted for about 30-45 minutes. It has not recurred. He denies any nausea or vomiting or diaphoresis. No abdominal pain no fever. Related Data Home Medications Medication Instructions Recorded Confirmed insulin lispro 100 unit/mL See Rx Instructions .Route 10/07/10 07/04/22 subcutaneous solution (Humalog .COMPLEX ##0 U-100 Insulin) atorvastatin 40 mg tablet 40 mg PO BEDTIME 07/04/22 07/04/22 duloxetine 30 mg capsule,delayed 30 mg PO DAILY 07/04/22 07/04/22 release sprinkle mirtazapine 45 mg tablet 45 mg PO BEDTIME 07/04/22 07/04/22 Previous Rx's Medication Instructions Recorded meclizine 25 mg chewable tablet 25 mg PO QID PRN vertigo #20 tabs 12/26/23 Allergies Allergy/AdvReac Type Severity Reaction Status Date / Time codeine [CODEINE] Allergy Severe Unconscious Verified 12/26/23 12:41 doxycycline [DOXYCYCLINE] Allergy Unknown Verified 12/26/23 12:41 omeprazole [OMEPRAZOLE] Allergy Unknown Verified 12/26/23 12:41 insulin aspart AdvReac Mild Rash at Verified 12/26/23 12:41 [From Novolog U-100 Insulin injection aspart] site Patient History Medical History Insulin dependent diabetes mellitus Social History household members: spouse Smoking Status: Former smoker alcohol intake: current substance use type: does not use Smoking Status: Former smoker alcohol intake frequency: 0-2 drinks per day Exam Initial Vital Signs Initial Vital Signs: Vital Signs Temperature 98.8 F 04/22/24 12:35 Pulse Rate 74 04/22/24 12:35 Respiratory Rate 20 04/22/24 12:35 Blood Pressure 102/60 04/22/24 12:35 Pulse Oximetry 98 04/22/24 12:35 Oxygen Delivery Method Room Air 04/22/24 12:35 GENERAL: Alert well-appearing 58-year-old male and in no acute distress. HEENT: Head atraumatic,EOMI, pupils reactive, face symmetric, moist mucous membranes CARDIOVASCULAR: Regular rate and rhythm without murmurs, rubs or gallops. RESPIRATORY: Breath sounds equal bilaterally, no wheezes rales or rhonchi. ABDOMEN: Soft, nontender. Normoactive bowel sounds all 4 quadrants. No guarding or rebound. EXTREMITIES: Normal range of motion, no clubbing or edema. Neurovascularly intact NEUROLOGICAL: Alert and oriented x4.Normal gait and speech. Cranial nerves II through XII grossly intact. SKIN: Warm, dry, no laceration, no petechiae, no rashes or lesions. Scores HEART Score Heart Score history: Moderately Suspicious Heart Score EKG: Normal Heart Score Age: 45-64 years old Heart Score risk factors: 1-2 risk factors Heart Score troponin: < or = to normal limit Heart Score Total: 3 Course Orders Ordered: ED Orders 04/22/24 12:40 EKG-12 Lead Routine 04/22/24 13:02 Chest [XR chest 1V] Stat Venous Blood Gas STAT 04/22/24 13:12 Covid-19 + FLU A/B + RSV - PCR Stat 04/22/24 13:18 CBC Auto Diff [Complete Blood Count AUTO DIFF] Stat CMP [Comprehensive Metabolic Panel] Stat Ketones (Beta-Hydroxybutyrate) Stat Troponin & CK Cardiac Panel Stat 04/22/24 13:27 Blood Culture Stat 04/22/24 13:36 Venous Blood Gas Routine 04/22/24 15:14 EKG-12 Lead Stat 04/22/24 15:27 Troponin & CK Cardiac Panel Stat Discontinued Medications Aspirin (Aspirin Ec 325 Mg Tablet) 325 mg PO NOW ONE Stop: 04/22/24 15:15 Last Admin: 04/22/24 15:39 Dose: 325 mg Documented By: KG Sodium Chloride (Normal Saline 0.9%) 1,000 mls @ 1,000 mls/hr IV BOLUS ONE Stop: 04/22/24 14:01 Last Infusion: 04/22/24 15:01 Dose: Infused Documented By: Admin: 04/22/24 13:10 Dose: 1,000 mls/hr Documented By: KG Vital Signs Vital signs: Vital Signs - 8 hr 04/22/24 12:35 04/22/24 13:15 04/22/24 13:30 Temperature 98.8 F Pulse Rate 74 62 62 Respiratory Rate 20 12 14 Blood Pressure 102/60 Pulse Oximetry 98 98 97 Oxygen Delivery Method Room Air 04/22/24 13:30 04/22/24 14:00 04/22/24 14:00 Temperature Pulse Rate 66 Respiratory Rate 21 Blood Pressure 122/67 143/64 H Pulse Oximetry 99 Oxygen Delivery Method 04/22/24 14:30 04/22/24 14:31 04/22/24 14:31 Temperature Pulse Rate 60 62 Respiratory Rate 13 11 L Blood Pressure 132/69 Pulse Oximetry 99 98 Oxygen Delivery Method 04/22/24 15:00 04/22/24 15:00 04/22/24 15:30 Temperature Pulse Rate 61 63 Respiratory Rate 22 20 Blood Pressure 134/75 Pulse Oximetry 98 Oxygen Delivery Method 04/22/24 15:31 04/22/24 15:31 04/22/24 16:00 Temperature Pulse Rate 64 Respiratory Rate 26 H Blood Pressure 126/68 136/74 Pulse Oximetry 99 Oxygen Delivery Method 04/22/24 16:00 04/22/24 16:30 04/22/24 16:30 Temperature Pulse Rate 58 L 62 Respiratory Rate 19 16 Blood Pressure 133/74 Pulse Oximetry 100 Oxygen Delivery Method 04/22/24 16:55 04/22/24 16:56 Temperature Pulse Rate 84 Respiratory Rate 18 Blood Pressure 133/74 Pulse Oximetry Oxygen Delivery Method Medical Decision Making Lab Data 04/22/24 13:18 04/22/24 13:18 Labs: Lab Results 04/22/24 04/22/24 04/22/24 Range/Units 13:12 13:18 13:36 WBC 5.0 (4.5-11.0) X10^3/uL RBC 4.37 L (4.5-5.9) X10^6/uL Hgb 13.2 L (13.5-17.5) g/dL Hct 39.0 L (41-53) % MCV 89.1 (80-100) fL MCH 30.2 (26-34) PG MCHC 33.9 (30-36) % RDW 13.0 (11.6-14.8) % Plt Count 211 (150-400) X10^3/uL Neut % (Auto) 71.6 (50-75) % Lymph % (Auto) 18.7 L (25-40) % [place] % (Auto) 7.3 (3-14) % Eos % (Auto) 1.2 L (2-4) % Baso % (Auto) 1.2 (0-2) % Neut # (Auto) 3600 (5302-5835) /uL Lymph # (Auto) 900 L (2364-8964) /uL [place] # (Auto) 400 (0-900) /uL Eos # (Auto) 100 (0-450) /uL Baso # (Auto) 100 (0-100) /uL VBG pH 7.40 (7.33-7.43) VBG pCO2 38.3 L (45-50) mmHg VBG pO2 34 L (35-45) mmHg VBG HCO3 24 (24-28) mmol/L VBG Total CO2 23 L (24-29) mmol/L VBG O2 Saturation 65 L (70-75) % VBG Base Excess -0.8 L (0-4) mmol/L Sodium 132 L (137-145) mmol/L Potassium 4.4 (3.4-5.1) mmol/L Chloride 104 (98-107) mmol/L Carbon Dioxide 25 (22-32) mmol/L BUN 19 (9-20) mg/dL Creatinine 0.96 (0.66-1.25) mg/dL Estimated GFR > 60 (>60) mL/min BUN/Creatinine Ratio 19.8 (6-22) Glucose 382 H (80-110) mg/dL Calcium 8.8 (8.4-10.2) mg/dL Total Bilirubin 1.1 (0.2-1.3) mg/dL AST 26 (17-59) IU/L ALT 24 (<50) IU/L Alkaline Phosphatase 55 (38-126) U/L Total Creatine Kinase 74 (55-170) U/L Troponin I < 0.012 (0.01-0.034) ng/mL Total Protein 6.2 L (6.3-8.2) g/dL Albumin 3.5 (3.5-5.0) g/dL Globulin 2.7 (1.7-4.1) g/dL Albumin/Globulin Ratio 1.3 (1.0-2.8) Ketones 0.07 (<0.27) mmol/L SARS-CoV-2 (PCR) Negative (Negative) Influenza A (RT-PCR) Flu a negative (NEGATIVE) Influenza B (RT-PCR) Flu b negative (NEGATIVE) RSV (PCR) Negative (Negative) 04/22/24 Range/Units 15:27 WBC (4.5-11.0) X10^3/uL RBC (4.5-5.9) X10^6/uL Hgb (13.5-17.5) g/dL Hct (41-53) % MCV (80-100) fL MCH (26-34) PG MCHC (30-36) % RDW (11.6-14.8) % Plt Count (150-400) X10^3/uL Neut % (Auto) (50-75) % Lymph % (Auto) (25-40) % [place] % (Auto) (3-14) % Eos % (Auto) (2-4) % Baso % (Auto) (0-2) % Neut # (Auto) (2364-4998) /uL Lymph # (Auto) (4151-2188) /uL [place] # (Auto) (0-900) /uL Eos # (Auto) (0-450) /uL Baso # (Auto) (0-100) /uL VBG pH (7.33-7.43) VBG pCO2 (45-50) mmHg VBG pO2 (35-45) mmHg VBG HCO3 (24-28) mmol/L VBG Total CO2 (24-29) mmol/L VBG O2 Saturation (70-75) % VBG Base Excess (0-4) mmol/L Sodium (137-145) mmol/L Potassium (3.4-5.1) mmol/L Chloride (98-107) mmol/L Carbon Dioxide (22-32) mmol/L BUN (9-20) mg/dL Creatinine (0.66-1.25) mg/dL Estimated GFR (>60) mL/min BUN/Creatinine Ratio (6-22) Glucose (80-110) mg/dL Calcium (8.4-10.2) mg/dL Total Bilirubin (0.2-1.3) mg/dL AST (17-59) IU/L ALT (<50) IU/L Alkaline Phosphatase (38-126) U/L Total Creatine Kinase 69 (55-170) U/L Troponin I < 0.012 (0.01-0.034) ng/mL Total Protein (6.3-8.2) g/dL Albumin (3.5-5.0) g/dL Globulin (1.7-4.1) g/dL Albumin/Globulin Ratio (1.0-2.8) Ketones (<0.27) mmol/L SARS-CoV-2 (PCR) (Negative) Influenza A (RT-PCR) (NEGATIVE) Influenza B (RT-PCR) (NEGATIVE) RSV (PCR) (Negative) Imaging Data Chest x-ray: Radiologist's Impression: PROCEDURE: XR CHEST 1V INDICATIONS: chest pain TECHNIQUE: One view of the chest was acquired. COMPARISON: [facility], , XR CHEST 1V, 12/26/2023, 12:44. [facility], CR, XR CHEST 1V, 07/04/2022, 14:02. FINDINGS: Surgical changes and devices: None. Lungs and pleura: Lungs are clear. No pleural effusions or pneumothorax. Mediastinum: Mediastinal contours appear normal. Heart size is normal. Bones and chest wall: No suspicious bony lesions. Overlying soft tissues appear unremarkable. IMPRESSION: No acute cardiopulmonary abnormality is seen. Dictated by: Randall Villegas M.D. on 04/22/2024 at 13:47 ECG Data Attestation: I personally reviewed and interpreted this ECG as follows: Interpretation: Normal sinus rhythm rate 73 LA interval [address] changes some artifact noted similar to previous EKGs in December 2019 EKG 2. Sinus rhythm rate 53 no ischemia MDM Narrative Medical decision making narrative: MDM CC: Chest pain Complicating co-morbidities: Insulin-dependent diabetes Medical records reviewed: Previous ED visits Differential considered: Acute coronary syndrome received NSTEMI Exam documented above, pertinent findings include: Well-appearing 58-year-old male had patient stand at while on radiographer angiogram no changes on monitor and no recurrence of pain Lab Test results independently reviewed as above. Pertinent findings: Troponin negative x2 CBC shows no anemia no leukocytosis as white count of 5 CMP glucose 382, sodium 132 potassium 4.4 chloride 104 carbon dioxide 25 BUN 19 creatinine 0.96 Anion gap 6.0 Independently reviewed EKG as above No ischemia Imaging studies independently reviewed: no cardiopulmonary process Treatments: Aspirin Re-evaluations: No further chest Discussion: Patient is a 58-year-old male insulin-dependent diabetic presenting today with chest discomfort. It happened while he was doing some work on doors but not strenuous activity lasted for about 30-45 minutes and went away. Nonradiating. He has a heart score of 3 as 2- troponins. At this time I do recommend that he follow up with his primary care provider. He understands that he needs further testing done. He also understands that he needs to return to the ED if you should have any new or worsening symptoms Discharge Plan Departure Patient Disposition: Home Clinical Impression: Atypical chest pain Instructions: DI for Atypical Chest Pain Activity Restrictions/Additional Instructions: *You have been diagnosed with atypical chest pain *What to do: At this time blood work is overall reassuring however I strongly encourage you to have stress test and echocardiogram If you should have any worsening pain or persistent pain please return to the emergency department median *Continue to take medications as directed *Follow up with your primary care provider in 2-3 days or call [phone] *Return to ER if you should have increasing chest pain shortness of breath or any new, worsening or concerning symptoms Prescriptions: No Action insulin lispro [Humalog U-100 Insulin] 100 UNIT/1 ML solution See Rx Instructions .ROUTE .COMPLEX Qty: 0 Rx Instructions: per pump atorvastatin 40 mg tablet 40 mg PO BEDTIME Patient Comments: take 1 tablet by mouth at bedtime /// NEED TO DO LABWORK. mirtazapine 45 mg tablet 45 mg PO BEDTIME duloxetine 30 mg Capsule, Delayed Rel Sprinkle 30 mg PO DAILY meclizine 25 mg tablet,chewable 25 mg PO QID PRN (Reason: vertigo) Qty: 20 0RF Referrals: Dangelo Bowen MD [Primary Care Provider] - Stand Alone Forms: Patient Portal/API/Survey
[2024-04-22 15:08] LABS: COVID-19 CEPHEID 4-PLEX PCR Negative (Negative); Influenza A - CEPHEID Flu A NEGATIVE (NEGATIVE); Influenza B - CEPHEID Flu B NEGATIVE (NEGATIVE); Respiratory Syncytial Virus Negative (Negative)
--- NOTE | 2024-04-22 15:14 | EKG_ITS ---
[facility] [address] [place] [id number] Test Date: 2024-04-22 Pat Name: Niels Blackwood Department: [facility] Room: Gender: Male Medical Field Representative: DIMITRIOS : 1965 Requested By: Order Number: [id number] Reading MD: Chaim Chavis Measurements Intervals [place] Rate: 53 P: 73 OK: 210 QRS: 83 QRSD: 88 T: 66 QT: 464 QTc: 435 Interpretive Statements Sinus bradycardia with 1st degree AV block Electronically Signed On 04-25-2024 9:43:15 PST by Chaim Chavis
[2024-04-22] MEDS: ASPIRIN EC 325 MG TABLET PO (15:39)
[2024-04-22 15:53] LABS: Creatine Kinase 69 U/L (55-170)
[2024-04-22 16:05] LABS: Troponin I < 0.012 ng/mL (0.01-0.034)
== END 2024-04-22 16:56 | disposition home or self-care (01) ==
PROVIDERS: Emergency Provider Emergency Medicine; Family Provider Family Medicine; PCP Internal Medicine
DX: R07.89 Other chest pain (principal); E11.9 Type 2 diabetes mellitus without complications; Z79.4 Long term (current) use of insulin
CPT/HCPCS: 0241U; 36415; 71045; 80053; 82009; 82550; 82805; 84484; 85025; 87040; 93005; 96360; 96361; 99284

== ENCOUNTER 2024-05-03 19:12 | Emergency (ER) | payer MEDICARE, SELFPAY ==
[2022-07-04 19:23] VITALS: BMI 23.9
[2024-05-03 19:18] VITALS: BP 139/76; PULSE 90; RESP 16; TEMP 37.6; O2SAT 97; BMI 25.7
--- NOTE | 2024-05-03 20:08 | ED_ITS ---
HPI - Back Pain/Injury General Chief Complaint: Back Pain/Injury Stated Complaint: back px Time Seen by Provider: 05/03/24 19:41 Source: patient Mode of arrival: Ambulatory Limitations: no limitations History of Present Illness HPI Narrative: Patient was a 58-year-old male. A insulin-dependent diabetic. Has a history urinary tract infections in the past. It was not currently having any dysuria. Also has a history of a lumbar compression fracture. Is here for evaluation of increase in lower back discomfort. No specific injury. He stated that today he had an episode where he felt like he was incontinent of urine. He was also had some subjective fevers. Diarrhea as well. He was feel like he was emptying his bladder when he urinates. No radiation to his legs. No new trauma. Related Data Home Medications Medication Instructions Recorded Confirmed insulin lispro 100 unit/mL See Rx Instructions .Route 10/07/10 07/04/22 subcutaneous solution (Humalog .COMPLEX ##0 U-100 Insulin) atorvastatin 40 mg tablet 40 mg PO BEDTIME 07/04/22 07/04/22 duloxetine 30 mg capsule,delayed 30 mg PO DAILY 07/04/22 07/04/22 release sprinkle mirtazapine 45 mg tablet 45 mg PO BEDTIME 07/04/22 07/04/22 Previous Rx's Medication Instructions Recorded meclizine 25 mg chewable tablet 25 mg PO QID PRN vertigo #20 tabs 12/26/23 Allergies Allergy/AdvReac Type Severity Reaction Status Date / Time codeine [CODEINE] Allergy Severe Unconscious Verified 12/26/23 12:41 doxycycline [DOXYCYCLINE] Allergy Unknown Verified 12/26/23 12:41 omeprazole [OMEPRAZOLE] Allergy Unknown Verified 12/26/23 12:41 insulin aspart AdvReac Mild Rash at Verified 12/26/23 12:41 [From Novolog U-100 Insulin injection aspart] site Review of Systems Review of Systems Narrative: See HPI Patient History Medical History Insulin dependent diabetes mellitus Social History household members: spouse Smoking Status: Former smoker alcohol intake: current substance use type: does not use Smoking Status: Former smoker alcohol intake frequency: 0-2 drinks per day Exam Initial Vital Signs Initial Vital Signs: Vital Signs Temperature 99.7 F H 05/03/24 19:18 Pulse Rate 90 05/03/24 19:18 Respiratory Rate 16 05/03/24 19:18 Blood Pressure 139/76 05/03/24 19:18 Pulse Oximetry 97 05/03/24 19:18 Oxygen Delivery Method Room Air 05/03/24 19:18 Const General: cooperative, comfortable and No ill appearing HENOK Head: normal to inspection and normocephalic Back/Spine/Pelvis Cervical Spine: No cervical muscular tenderness and No cervical spinal tenderness Thoracic/Lumbar Spine: paraspinal tenderness (Lumbar region), No thoracic spinal tenderness and No lumbar spinal tenderness Skin General: no rashes or lesions noted Neuro Gait: normal gait Sensory Exam: no sensory deficits noted Extrem General: normal to inspection Course Orders Ordered: ED Orders 05/03/24 20:11 CT lumbar spine wo con Stat 05/03/24 20:35 Complete Blood Count AUTO DIFF Stat 05/03/24 20:40 Basic Metabolic Panel Stat 05/03/24 21:50 Urine Microscopic Stat Vital Signs Vital signs: Vital Signs - 8 hr 05/03/24 19:18 05/03/24 20:41 05/03/24 23:14 Temperature 99.7 F H Pulse Rate 90 66 75 Respiratory Rate 16 18 16 Blood Pressure 139/76 136/87 128/60 Pulse Oximetry 97 98 96 Oxygen Delivery Method Room Air Room Air Room Air MDM - Back Pain/Injury Lab Data Attestation: I reviewed the patient's lab results. 05/03/24 20:35 05/03/24 20:40 Labs: Lab Results 05/03/24 05/03/24 05/03/24 Range/Units 20:35 20:40 21:50 WBC 7.1 (4.5-11.0) X10^3/uL RBC 5.23 (4.5-5.9) X10^6/uL Hgb 15.7 (13.5-17.5) g/dL Hct 45.8 (41-53) % MCV 87.5 (80-100) fL MCH 30.0 (26-34) PG MCHC 34.3 (30-36) % RDW 13.1 (11.6-14.8) % Plt Count 173 (150-400) X10^3/uL Neut % (Auto) 80.4 H (50-75) % Lymph % (Auto) 10.3 L (25-40) % [place] % (Auto) 8.7 (3-14) % Eos % (Auto) 0.0 L (2-4) % Baso % (Auto) 0.6 (0-2) % Neut # (Auto) 5700 (0941-2253) /uL Lymph # (Auto) 700 L (5184-4488) /uL [place] # (Auto) 600 (0-900) /uL Eos # (Auto) 0 (0-450) /uL Baso # (Auto) 0 (0-100) /uL Sodium 134 L (137-145) mmol/L Potassium 3.8 (3.4-5.1) mmol/L Chloride 100 (98-107) mmol/L Carbon Dioxide 25 (22-32) mmol/L BUN 21 H (9-20) mg/dL Creatinine 1.08 (0.66-1.25) mg/dL Estimated GFR > 60 (>60) mL/min BUN/Creatinine Ratio 19.4 (6-22) Glucose 174 H (80-110) mg/dL Calcium 8.9 (8.4-10.2) mg/dL Urine RBC None seen (0-5/HPF) Urine WBC None seen (0-5/HPF) Ur Squamous Epith Cells 0-1 /hpf (0-5/HPF) Urine Bacteria None seen (None) Ur Culture Indicated? Cult not indicated Vol Urine Centrifuged 10ml (spun) Urine Dip Bedside Urine Glucose Negative Bedside Urine Bilirubin - Negative Bedside Urine Ketone ++ 40 Urine Specific [place] 1.030 Bedside Urine Occult Blood - Negative Bedside Urine pH 6.0 Bedside Urine Protein + 30 Bedside Urine Urobilinogen - Negative Bedside Urine Nitrite - Negative Bedside Urine Leukocytes - Negative Esterase Imaging Data lumbar ct: Radiologist's Impression: PROCEDURE: CT LUMBAR SPINE WO CON INDICATIONS: known L5 compression fx with increase in pain TECHNIQUE: Noncontrast 3 mm thick sections acquired from the T12 level to the sacrum. Sagittal and coronal reformats were constructed. For radiation dose reduction, the following was used: automated exposure control. COMPARISON: [facility], MR, MR LUMBAR SPINE WO CON, 12/29/2023, 16:37. FINDINGS: Image quality: Excellent. Bones: There is normal bony alignment. Chronic appearing anterior wedge compression deformities at L1 and L5 levels are again seen unchanged from prior study. No new vertebral body compression fracture is noted.. No suspicious lytic or blastic bony lesions. No pars defects. T12-L1: Loss of disc height and degenerative endplate changes. Diffuse disc bulge and bilateral facet arthrosis with mild bilateral neural foraminal narrowing. No significant central canal stenosis. L1-L2: Loss of disc height and degenerative endplate changes. Broad-based disc bulge and bilateral facet arthrosis with mild central canal stenosis and [id number] bilateral neural foraminal narrowing. L2-L3: Loss of disc height and degenerative endplate changes. Broad-based disc bulge and bilateral facet arthrosis with mild central canal stenosis, moderate to severe right-sided neural foraminal narrowing and mild left-sided neural foraminal narrowing. L3-L4: Degenerative endplate changes are seen. Broad-based disc bulge and bilateral facet arthrosis with mild central canal stenosis and bilateral neural foraminal narrowing. L4-L5: Loss of disc height and degenerative endplate changes. Broad-based disc bulge and bilateral facet arthrosis with mild central canal stenosis and severe bilateral neural foraminal narrowing. L5-S1: Broad-based disc bulge and bilateral facet arthrosis with mild left- sided neural foraminal narrowing. No significant central canal stenosis. Soft tissues: No retroperitoneal masses or hematomas. Visualized aorta is normal in caliber. IMPRESSION: 1. Stable chronic appearing superior endplate anterior wedge compression deformities at L1 and L5 levels unchanged from prior studies. No acute vertebral body compression fracture. 2. Spondylitic changes throughout lumbar spine causing various degrees of central canal stenosis and neural foraminal narrowing not significantly changed from previous study. 3. No gross paraspinous soft tissue abnormalities. [facility] Narrative Medical decision making narrative: CT scan today shows no new lumbar spinal pathology. Patient was not incontinent of urine here in the ER. He was not retaining urine. No saddle anesthesia. Year in his not consistent with a urinary tract infection. Patient was ambulatory. Did consider cauda equina however I have low suspicion of this based on his presentation in his CT scan and his symptoms here in the ER. Advised that he contact his primary care doctor for follow-up. He was given return precautions. He expressed understanding and agreement. Discharge Plan Departure Patient Disposition: Home Clinical Impression: Lumbar back pain Instructions: DI for Low Back Pain Activity Restrictions/Additional Instructions: Continue to take all of your medications as directed. Contact your primary care doctor for a follow-up. Return to the emergency department for new or worsening symptoms. Prescriptions: No Action insulin lispro [Humalog U-100 Insulin] 100 UNIT/1 ML solution See Rx Instructions .ROUTE .COMPLEX Qty: 0 Rx Instructions: per pump atorvastatin 40 mg tablet 40 mg PO BEDTIME Patient Comments: take 1 tablet by mouth at bedtime /// NEED TO DO LABWORK. mirtazapine 45 mg tablet 45 mg PO BEDTIME duloxetine 30 mg Capsule, Delayed Rel Sprinkle 30 mg PO DAILY meclizine 25 mg tablet,chewable 25 mg PO QID PRN (Reason: vertigo) Qty: 20 0RF Referrals: Dangelo Bowen MD [Primary Care Provider] - Stand Alone Forms: Patient Portal/API/Survey
--- NOTE | 2024-05-03 20:11 | DI.CT.S_ITS ---
PROCEDURE: CT LUMBAR SPINE WO CON INDICATIONS: known L5 compression fx with increase in pain TECHNIQUE: Noncontrast 3 mm thick sections acquired from the T12 level to the sacrum. Sagittal and coronal reformats were constructed. For radiation dose reduction, the following was used: automated exposure control. COMPARISON: [facility], MR, MR LUMBAR SPINE WO CON, 12/29/2023, 16:37. FINDINGS: Image quality: Excellent. Bones: There is normal bony alignment. Chronic appearing anterior wedge compression deformities at L1 and L5 levels are again seen unchanged from prior study. No new vertebral body compression fracture is noted.. No suspicious lytic or blastic bony lesions. No pars defects. T12-L1: Loss of disc height and degenerative endplate changes. Diffuse disc bulge and bilateral facet arthrosis with mild bilateral neural foraminal narrowing. No significant central canal stenosis. L1-L2: Loss of disc height and degenerative endplate changes. Broad-based disc bulge and bilateral facet arthrosis with mild central canal stenosis and [id number] bilateral neural foraminal narrowing. L2-L3: Loss of disc height and degenerative endplate changes. Broad-based disc bulge and bilateral facet arthrosis with mild central canal stenosis, moderate to severe right-sided neural foraminal narrowing and mild left-sided neural foraminal narrowing. L3-L4: Degenerative endplate changes are seen. Broad-based disc bulge and bilateral facet arthrosis with mild central canal stenosis and bilateral neural foraminal narrowing. L4-L5: Loss of disc height and degenerative endplate changes. Broad-based disc bulge and bilateral facet arthrosis with mild central canal stenosis and severe bilateral neural foraminal narrowing. L5-S1: Broad-based disc bulge and bilateral facet arthrosis with mild left-sided neural foraminal narrowing. No significant central canal stenosis. Soft tissues: No retroperitoneal masses or hematomas. Visualized aorta is normal in caliber. IMPRESSION: 1. Stable chronic appearing superior endplate anterior wedge compression deformities at L1 and L5 levels unchanged from prior studies. No acute vertebral body compression fracture. 2. Spondylitic changes throughout lumbar spine causing various degrees of central canal stenosis and neural foraminal narrowing not significantly changed from previous study. 3. No gross paraspinous soft tissue abnormalities. Dictated by: Nader Garibay M.D. on 05/03/2024 at 21:25 Approved by: Nader Garibay M.D. on 05/03/2024 at 21:29
[2024-05-03 20:41] VITALS: BP 136/87; PULSE 66; RESP 18; O2SAT 98
[2024-05-03 20:45] LABS: Add Manual Diff / Slide Review NO; Basophils Absolute Auto 0 /uL (0-100); Basophils Percent Auto 0.6 % (0-2); Eosinophils Absolute Auto 0 /uL (0-450); Hematocrit 45.8 % (41-53); Hemoglobin 15.7 g/dL (13.5-17.5); Lymphocytes Absolute Auto 700 /uL (1100-4500); Lymphocytes Percent Auto 10.3 % (25-40); Mean Corpuscular HGB Conc 34.3 % (30-36); Mean Corpuscular Volume 87.5 fL (80-100); Monocytes Absolute Auto 600 /uL (0-900); Monocytes Percent Auto 8.7 % (3-14); Neutrophils Absolute Auto 5700 /uL (1500-7000); Neutrophils Percent Auto 80.4 % (50-75); Platelet Count 173 X10^3/uL (150-400); Red Blood Cell Count 5.23 X10^6/uL (4.5-5.9); Red Cell Distribution Width 13.1 % (11.6-14.8); White Blood Cell Count 7.1 X10^3/uL (4.5-11.0)
[2024-05-03 20:55] LABS: BUN Creatinine Ratio 19.4 (6-22); Blood Urea Nitrogen 21 mg/dL (9-20); Calcium 8.9 mg/dL (8.4-10.2); Carbon Dioxide 25 mmol/L (22-32); Chloride 100 mmol/L (98-107); Estimated Glomerular Filt Rate > 60 mL/min (>60); Glucose 174 mg/dL (80-110); HEMOLYSIS < 15 (0-50); Potassium 3.8 mmol/L (3.4-5.1); Sodium 134 mmol/L (137-145)
[2024-05-03 22:06] LABS: Bacteria Urine None Seen; Culture Indicated Urine Cult Not Indicated; RBC Urine None Seen (0-5/HPF); Squamous Epithelial Cell Urine 0-1 /HPF (0-5/HPF); Urine Volume 10mL (spun); WBC Urine None Seen (0-5/HPF)
[2024-05-03 23:14] VITALS: BP 128/60; PULSE 75; RESP 16; O2SAT 96
== END 2024-05-03 23:15 | disposition home or self-care (01) ==
PROVIDERS: Emergency Provider Emergency Medicine; Family Provider Family Medicine; PCP Internal Medicine
DX: M54.50 Low back pain, unspecified (principal); R50.9 Fever, unspecified
CPT/HCPCS: 36415; 51798; 72131; 80048; 81003; 81015; 85025; 99283; 99284

== ENCOUNTER 2024-08-08 11:19 | Emergency (ER) | payer MEDICARE, SELFPAY ==
[2022-07-04 19:23] VITALS: BMI 23.9
[2024-08-08] VITALS (34 sets, daily range): BP systolic 102–146; BP diastolic 51–78; PULSE 62–95; RESP 12–27; TEMP 36.6; O2SAT 94–100; BMI 26.4
--- NOTE | 2024-08-08 11:27 | EKG_ITS ---
[place] [id number] [place] [id number] Test Date: 2024-08-08 Pat Name: Niels Blackwood Department: Room: Gender: Male Correctional Cook: CCIHNZOYA : 1965 Requested By: Order Number: [id number] Reading MD: Niels Salmon MD Measurements Intervals [place] Rate: 83 P: 83 NC: 190 QRS: 92 QRSD: 88 T: 75 QT: 398 QTc: 467 Interpretive Statements Normal sinus rhythm Possible Left atrial enlargement Rightward axis T wave abnormality, consider anterior ischemia Electronically Signed On 08-08-2024 14:00:12 PDT by Niels Salmon MD
--- NOTE | 2024-08-08 11:27 | DI.RAD.S_ITS ---
1PROCEDURE: XR CHEST 1V INDICATIONS: chest pain TECHNIQUE: One view of the chest was acquired. COMPARISON: [facility], CR, XR CHEST 1V, 04/22/2024, 13:23. [facility], CR, XR CHEST 1V, 12/26/2023, 12:44. FINDINGS AND IMPRESSION: On this single view study, no dense airspace disease or pleural effusion is seen. Normal heart size. Unremarkable osseous structures. Dictated by: Josh Daniels M.D. on 08/08/2024 at 12:26 Approved by: Josh Daniels M.D. on 08/08/2024 at 12:26
--- NOTE | 2024-08-08 11:35 | ED_ITS ---
HPI - Syncope General Chief Complaint: Syncope Stated Complaint: Syncope Time Seen by Provider: 08/08/24 11:35 History of Present Illness HPI narrative: 58-year-old male with a past medical history of type 1 diabetes, hyperlipidemia, presenting to the emergency department for syncopal episode and hyperglycemia. According to the patient who was here at [facility] attempting to go see his new granddaughter when he had a syncopal episode in the parking lot. Patient states that he forgot to attach his insulin pump this morning. At time of evaluation blood glucose greater than 500. He is complaining of some neck pain therefore placed patient in C-collar for precautions. Otherwise patient not complaining of any other symptoms at this time. He denies head strike, he believes that he was able to lower himself on the floor but is not 100% sure. He is not on any blood thinners. Related Data Home Medications Medication Instructions Recorded Confirmed insulin lispro 100 unit/mL See Rx Instructions .Route 10/07/10 07/04/22 subcutaneous solution (Humalog .COMPLEX ##0 U-100 Insulin) atorvastatin 40 mg tablet 40 mg PO BEDTIME 07/04/22 07/04/22 duloxetine 30 mg capsule,delayed 30 mg PO DAILY 07/04/22 07/04/22 release sprinkle mirtazapine 45 mg tablet 45 mg PO BEDTIME 07/04/22 07/04/22 Previous Rx's Medication Instructions Recorded meclizine 25 mg chewable tablet 25 mg PO QID PRN vertigo #20 tabs 12/26/23 Allergies Allergy/AdvReac Type Severity Reaction Status Date / Time codeine [CODEINE] Allergy Severe Unconscious Verified 12/26/23 12:41 doxycycline [DOXYCYCLINE] Allergy Unknown Verified 12/26/23 12:41 omeprazole [OMEPRAZOLE] Allergy Unknown Verified 12/26/23 12:41 insulin aspart AdvReac Mild Rash at Verified 12/26/23 12:41 [From Novolog U-100 Insulin injection aspart] site Review of Systems Review of Systems Narrative: General: Positive hyperglycemia, Denies fever, chills, weight loss HEENT: Positive neck pain, Denies headache, eye drainage, eye irritation, head trauma, sore throat, voice change Cardiovascular: Denies any chest pain, palpitations, tachycardia Respiratory: Denies any shortness of breath, cough, wheeze, stridor GI/: Denies any abdominal pain, nausea, vomiting, diarrhea, bright red blood per rectum, melanotic stools, urinary frequency, urinary retention, dysuria, hematuria MSK: Denies any joint pain, muscle pains, swelling Skin: Denies any rashes, lesions, discoloration Neuro: Positive syncope Denies any headache, lightheadedness, dizziness, weakness Psych: Denies SI/HI Patient History Medical History Insulin dependent diabetes mellitus Social History household members: spouse Smoking Status: Never smoker alcohol intake: current substance use type: does not use alcohol intake frequency: 0-2 drinks per day Exam Narrative Exam Narrative: General: Cooperative, well-developed, not in acute distress HEENT: Patient in C-collar for precautions, Normocephalic, atraumatic, PERRLA, normal sclera, eyelids normal Neck: Active full range of motion, atraumatic Chest: Normal to inspection, negative crepitus, no overlying erythema ecchymosis Respiratory: Normal respiratory effort, not in acute respiratory distress, clear to auscultation bilaterally negative cough, wheeze, tachypnea, rhonchi, rales Cardiology: Regular rate rhythm negative gallop, murmur, rubs GI/: No tenderness to palpation, soft, non rigid, normal to inspection, exam deferred MSK: Full active range of motion in all 4 extremities, atraumatic, no tenderness to palpation of any bony prominences Skin: No rashes or lesions noted Neuro: NIH of 0, no focal deficits Alert awake oriented x3, moves all 4 extremities spontaneously, cranial nerves intact, able to answer all questions appropriately follows commands appropriately Psych: Cooperative, negative suicidal or homicidal ideations Initial Vital Signs Initial Vital Signs: Vital Signs Pulse Rate 85 08/08/24 11:25 Respiratory Rate 20 08/08/24 11:25 Blood Pressure 102/51 L 08/08/24 11:25 Pulse Oximetry 98 08/08/24 11:25 Course Orders Ordered: ED Orders 08/08/24 11:26 Complete Blood Count AUTO DIFF Stat Comprehensive Metabolic Panel Stat Lipase Stat Magnesium Stat NT-proBNP (BNP-Adult 18+) Stat PTT Partial Thromboplastin Francis Stat Prothrombin Time INR Stat Troponin & CK Cardiac Panel Stat 08/08/24 11:27 XR chest 1V Stat EKG-12 Lead Stat 08/08/24 11:36 VBG [Venous Blood Gas] STAT 08/08/24 11:37 CT cervical spine wo con Stat CT head/brain wo con Stat 08/08/24 12:02 Venous Blood Gas Routine 08/08/24 12:18 CT angio chest PE protocol Stat 08/08/24 12:35 Arterial Blood Gas STAT 08/08/24 12:55 Urinalysis and Microscopic Stat Ondansetron HCl (Ondansetron 4 Mg/2 Ml Inj) 4 mg IV NOW PRN PRN Reason: Nausea And Vomiting Last Admin: 08/08/24 12:25 Dose: 4 mg Documented By: AUDREY Discontinued Medications Sodium Chloride (Normal Saline 0.9%) 1,000 mls @ 1,000 mls/hr IV BOLUS ONE Stop: 08/08/24 12:35 Last Infusion: 08/08/24 14:23 Dose: Infused Documented By: AUDREY(2) Admin: 08/08/24 11:57 Dose: 1,000 mls/hr Documented By: AUDREY(2) Insulin Human Lispro (Insulin Lispro 100 Unit/Ml 3ml Vial) 10 unit SUBCUT NOW ONE Stop: 08/08/24 11:40 Last Admin: 08/08/24 11:56 Dose: 10 unit Documented By: AUDREY(2) Co-signed By: TOBIAS Vital Signs Vital signs: Vital Signs - 8 hr 08/08/24 11:25 08/08/24 11:25 08/08/24 11:30 Temperature Pulse Rate 85 95 H Respiratory Rate 20 24 Blood Pressure 102/51 L Pulse Oximetry 98 98 Oxygen Delivery Method Oxygen Flow Rate 08/08/24 11:32 08/08/24 11:32 08/08/24 11:35 Temperature 97.9 F Pulse Rate 88 81 Respiratory Rate 22 16 Blood Pressure 125/60 125/60 Pulse Oximetry 99 99 Oxygen Delivery Method Room Air Oxygen Flow Rate 08/08/24 11:40 08/08/24 11:40 08/08/24 11:50 Temperature Pulse Rate 82 82 Respiratory Rate 20 15 Blood Pressure 116/58 L Pulse Oximetry 98 97 Oxygen Delivery Method Nasal Cannula Nasal Cannula Oxygen Flow Rate 2 2 08/08/24 11:50 08/08/24 12:00 08/08/24 12:00 Temperature Pulse Rate 82 Respiratory Rate 19 Blood Pressure 105/52 L 113/55 L Pulse Oximetry 96 Oxygen Delivery Method Oxygen Flow Rate 08/08/24 12:07 08/08/24 12:07 08/08/24 12:10 Temperature Pulse Rate 81 84 Respiratory Rate 19 22 Blood Pressure 120/54 L Pulse Oximetry 97 Oxygen Delivery Method Nasal Cannula Oxygen Flow Rate 2 08/08/24 12:10 08/08/24 12:15 08/08/24 12:15 Temperature Pulse Rate 82 Respiratory Rate 14 Blood Pressure 118/55 L 123/59 L Pulse Oximetry 100 Oxygen Delivery Method Oxygen Flow Rate 08/08/24 12:18 08/08/24 12:18 08/08/24 12:18 Temperature Pulse Rate 80 Respiratory Rate 15 Blood Pressure 128/58 L 128/58 L Pulse Oximetry 100 Oxygen Delivery Method Nasal Cannula Oxygen Flow Rate 2 08/08/24 12:27 08/08/24 12:27 08/08/24 12:30 Temperature Pulse Rate 79 77 Respiratory Rate 19 14 Blood Pressure 141/60 H Pulse Oximetry 97 99 Oxygen Delivery Method Oxygen Flow Rate 08/08/24 12:35 08/08/24 12:35 08/08/24 12:41 Temperature Pulse Rate 78 Respiratory Rate 16 Blood Pressure 146/63 H 129/58 L Pulse Oximetry 97 Oxygen Delivery Method Nasal Cannula Oxygen Flow Rate 08/08/24 12:41 08/08/24 12:50 08/08/24 12:50 Temperature Pulse Rate 75 68 Respiratory Rate 15 19 Blood Pressure 146/68 H Pulse Oximetry 97 98 Oxygen Delivery Method Oxygen Flow Rate 08/08/24 13:00 08/08/24 13:00 08/08/24 13:10 Temperature Pulse Rate 62 Respiratory Rate 17 Blood Pressure 132/61 134/78 Pulse Oximetry 98 Oxygen Delivery Method Nasal Cannula Oxygen Flow Rate 2 08/08/24 13:10 08/08/24 13:15 08/08/24 13:20 Temperature Pulse Rate 73 74 Respiratory Rate 15 19 Blood Pressure 138/68 Pulse Oximetry 100 100 Oxygen Delivery Method Oxygen Flow Rate 08/08/24 13:20 08/08/24 13:30 08/08/24 13:30 Temperature Pulse Rate 76 68 Respiratory Rate 19 19 Blood Pressure 137/65 Pulse Oximetry 100 100 Oxygen Delivery Method Oxygen Flow Rate 08/08/24 13:40 08/08/24 13:40 08/08/24 13:45 Temperature Pulse Rate 72 66 Respiratory Rate 21 17 Blood Pressure 142/70 H Pulse Oximetry 100 99 Oxygen Delivery Method Oxygen Flow Rate 08/08/24 13:50 08/08/24 13:50 08/08/24 14:00 Temperature Pulse Rate 62 Respiratory Rate 18 Blood Pressure 126/58 L 131/61 Pulse Oximetry 99 Oxygen Delivery Method Oxygen Flow Rate 08/08/24 14:00 08/08/24 14:10 08/08/24 14:10 Temperature Pulse Rate 69 64 Respiratory Rate 18 18 Blood Pressure 134/68 Pulse Oximetry 99 99 Oxygen Delivery Method Oxygen Flow Rate 08/08/24 14:15 08/08/24 14:22 08/08/24 14:22 Temperature Pulse Rate 67 68 Respiratory Rate 18 19 Blood Pressure 106/53 L Pulse Oximetry 99 97 Oxygen Delivery Method Nasal Cannula Oxygen Flow Rate 2 08/08/24 15:01 Temperature Pulse Rate 80 Respiratory Rate Blood Pressure Pulse Oximetry 96 Oxygen Delivery Method Oxygen Flow Rate MDM - Syncope Lab Data 08/08/24 11:26 08/08/24 11:26 Labs: Lab Results 08/08/24 08/08/24 08/08/24 Range/Units 11:26 12:02 12:52 WBC 7.8 (4.5-11.0) X10^3/uL RBC 4.53 (4.5-5.9) X10^6/uL Hgb 13.9 (13.5-17.5) g/dL Hct 40.9 L (41-53) % MCV 90.3 (80-100) fL MCH 30.6 (26-34) PG MCHC 34.0 (30-36) % RDW 13.8 (11.6-14.8) % Plt Count 204 (150-400) X10^3/uL Neut % (Auto) 81.8 H (50-75) % Lymph % (Auto) 10.3 L (25-40) % Williamson % (Auto) 6.3 (3-14) % Eos % (Auto) 0.5 L (2-4) % Baso % (Auto) 1.1 (0-2) % Neut # (Auto) 6400 (6765-5441) /uL Lymph # (Auto) 800 L (2122-5142) /uL Williamson # (Auto) 500 (0-900) /uL Eos # (Auto) 0 (0-450) /uL Baso # (Auto) 100 (0-100) /uL PT 12.4 (9.4-12.5) SECONDS INR 1.1 (0.9-1.3) APTT 29 (25.1-36.5) SECONDS ABG Sample Site Right radial ABG pH 7.37 (7.35-7.45) ABG pCO2 34.9 L (35-45) mmHg ABG pO2 104 H (80-100) mmHg ABG HCO3 20 L (23-27) mmol/L ABG Total CO2 20 L (23-27) mmol/L ABG O2 Saturation 98 (95-100) % ABG Base Excess -4.2 L (-2-3) mmol/L Chaim Test Positive VBG pH 7.37 (7.33-7.43) VBG pCO2 33.6 L (45-50) mmHg VBG pO2 60 H (35-45) mmHg VBG HCO3 20 L (24-28) mmol/L VBG Total CO2 19 L (24-29) mmol/L VBG O2 Saturation 90 H (70-75) % VBG Base Excess -4.9 L (0-4) mmol/L O2 Delivery Device Cannula FiO2 % 21.0 % % Sodium 129 L (137-145) mmol/L Potassium 4.8 (3.4-5.1) mmol/L Chloride 94 L (98-107) mmol/L Carbon Dioxide 18 L (22-32) mmol/L BUN 22 H (9-20) mg/dL Creatinine 1.22 (0.66-1.25) mg/dL Estimated GFR > 60 (>60) mL/min BUN/Creatinine Ratio 18.0 (6-22) Glucose 549 H* (80-110) mg/dL Calcium 9.5 (8.4-10.2) mg/dL Magnesium 1.8 (1.6-2.3) mg/dL Total Bilirubin 2.0 H (0.2-1.3) mg/dL AST 29 (17-59) IU/L ALT 26 (<50) IU/L Alkaline Phosphatase 87 (38-126) U/L Total Creatine Kinase 108 (55-170) U/L Troponin I < 0.012 (0.01-0.034) ng/mL NT-Pro-B Natriuret Pep 91 (<125) pg/mL Total Protein 6.8 (6.3-8.2) g/dL Albumin 4.3 (3.5-5.0) g/dL Globulin 2.5 (1.7-4.1) g/dL Albumin/Globulin Ratio 1.7 (1.0-2.8) Lipase 53 (23-300) U/L Urine Color Urine Appearance Urine pH (4.5-8.0) Ur Specific Frakes (1.000-1.035) Urine Protein (Negative) Urine Glucose (UA) (Negative) g/dL Urine Ketones (NEGATIVE) Urine Occult Blood (Negative) Urine Nitrate (Negative) Urine Bilirubin (NEGATIVE) Urine Urobilinogen (0.2) E.U./dL Ur Leukocyte Esterase (NEGATIVE) Urine RBC (0-5/HPF) Urine WBC (0-5/HPF) Ur Squamous Epith Cells (0-5/HPF) Urine Bacteria (None) Ur Culture Indicated? Vol Urine Centrifuged 08/08/24 Range/Units 12:55 WBC (4.5-11.0) X10^3/uL RBC (4.5-5.9) X10^6/uL Hgb (13.5-17.5) g/dL Hct (41-53) % MCV (80-100) fL MCH (26-34) PG MCHC (30-36) % RDW (11.6-14.8) % Plt Count (150-400) X10^3/uL Neut % (Auto) (50-75) % Lymph % (Auto) (25-40) % Williamson % (Auto) (3-14) % Eos % (Auto) (2-4) % Baso % (Auto) (0-2) % Neut # (Auto) (2474-7168) /uL Lymph # (Auto) (8940-8104) /uL Williamson # (Auto) (0-900) /uL Eos # (Auto) (0-450) /uL Baso # (Auto) (0-100) /uL PT (9.4-12.5) SECONDS INR (0.9-1.3) APTT (25.1-36.5) SECONDS ABG Sample Site ABG pH (7.35-7.45) ABG pCO2 (35-45) mmHg ABG pO2 (80-100) mmHg ABG HCO3 (23-27) mmol/L ABG Total CO2 (23-27) mmol/L ABG O2 Saturation (95-100) % ABG Base Excess (-2-3) mmol/L Chaim Test VBG pH (7.33-7.43) VBG pCO2 (45-50) mmHg VBG pO2 (35-45) mmHg VBG HCO3 (24-28) mmol/L VBG Total CO2 (24-29) mmol/L VBG O2 Saturation (70-75) % VBG Base Excess (0-4) mmol/L O2 Delivery Device FiO2 % % Sodium (137-145) mmol/L Potassium (3.4-5.1) mmol/L Chloride (98-107) mmol/L Carbon Dioxide (22-32) mmol/L BUN (9-20) mg/dL Creatinine (0.66-1.25) mg/dL Estimated GFR (>60) mL/min BUN/Creatinine Ratio (6-22) Glucose (80-110) mg/dL Calcium (8.4-10.2) mg/dL Magnesium (1.6-2.3) mg/dL Total Bilirubin (0.2-1.3) mg/dL AST (17-59) IU/L ALT (<50) IU/L Alkaline Phosphatase (38-126) U/L Total Creatine Kinase (55-170) U/L Troponin I (0.01-0.034) ng/mL NT-Pro-B Natriuret Pep (<125) pg/mL Total Protein (6.3-8.2) g/dL Albumin (3.5-5.0) g/dL Globulin (1.7-4.1) g/dL Albumin/Globulin Ratio (1.0-2.8) Lipase (23-300) U/L Urine Color Yellow Urine Appearance Clear Urine pH 5.0 (4.5-8.0) Ur Specific Frakes 1.010 (1.000-1.035) Urine Protein Negative (Negative) Urine Glucose (UA) 3+ H (Negative) g/dL Urine Ketones 3+ H (NEGATIVE) Urine Occult Blood Negative (Negative) Urine Nitrate Negative (Negative) Urine Bilirubin Negative (NEGATIVE) Urine Urobilinogen 0.2 (0.2) E.U./dL Ur Leukocyte Esterase Negative (NEGATIVE) Urine RBC None seen (0-5/HPF) Urine WBC None seen (0-5/HPF) Ur Squamous Epith Cells None seen (0-5/HPF) Urine Bacteria None seen (None) Ur Culture Indicated? Cult not indicated Vol Urine Centrifuged 10ml (spun) Point of Care Testing Glucose POC 346 Imaging Data Chest x-ray: Radiologist's Impression: [place] [address] XRay Report Signed Patient: Niels Blackwood MR#: [id number] : 1965 Acct:[id number] Age/Sex: 58 / M Date of Service: 08/08/24 Loc: ED Accession Number: [id number] Procedure: XR chest 1V Ordering Provider: Nishant Blanc D.O. 1PROCEDURE: XR CHEST 1V INDICATIONS: chest pain TECHNIQUE: One view of the chest was acquired. COMPARISON: [facility], CR, XR CHEST 1V, 04/22/2024, 13:23. [facility], CR, XR CHEST 1V, 12/26/2023, 12:44. FINDINGS AND IMPRESSION: On this single view study, no dense airspace disease or pleural effusion is seen. Normal heart size. Unremarkable osseous structures. CT scan - head: Radiologist's Impression: [place] [address] CT Scan Report Signed Patient: Niels Blackwood MR#: [id number] : 1965 Acct:[id number] Age/Sex: 58 / M Date of Service: 08/08/24 Loc: ED Accession Number: [id number] Procedure: CT head/brain wo con Ordering Provider: Nishant Blanc D.O. PROCEDURE: CT HEAD/BRAIN WO CON INDICATIONS: Trauma TECHNIQUE: Noncontrast 4.5 mm thick angled axial sections acquired from the foramen magnum to the vertex, with coronal and sagittal reformats. For radiation dose reduction, the following was used: automated exposure control, adjustment of mA and/or kV according to patient size. COMPARISON: [facility], CT, CT HEAD/BRAIN WO CON, 12/26/2023, 16:39. FINDINGS: Image quality: Diagnostic CSF spaces: Basal cisterns are patent. Lateral ventricles are symmetric. Volume: Vascular calcifications. Periventricular white matter disease is commonly seen with chronic microangiopathy. Volume loss is present. These findings are mild Brain: No intracranial hemorrhage. Clayton-white differentiation is grossly maintained. Craniofacial structures: Mild paranasal sinus mucosal thickening. IMPRESSION: No acute intracranial pathology. CT - cervical spine: Radiologist's Impression: [place] [address] CT Scan Report Signed Patient: Niels Blackwood MR#: [id number] : 1965 Acct:[id number] Age/Sex: 58 / M Date of Service: 08/08/24 Loc: ED Accession Number: [id number] Procedure: CT cervical spine wo con Ordering Provider: Nishant Blanc D.O. PROCEDURE: CT CERVICAL SPINE WO CON INDICATIONS: trauma TECHNIQUE: Noncontrast 3 mm thick sections acquired from the skull base to the T4 level. Sagittal and coronal reformats were then constructed. For radiation dose reduction, the following was used: automated exposure control, adjustment of mA and/or kV according to patient size. COMPARISON: None. FINDINGS: Image quality: Diagnostic Bones: Moderate multilevel degenerative changes, with disc space height loss, osteophytes, and facet arthropathy. There is no acute vertebral body height loss or traumatic subluxation. Soft tissues: No pathologic prevertebral soft tissue swelling. There are vascular calcifications. No apical pneumothorax. IMPRESSION: No displaced fracture or traumatic subluxation. Moderate spondylotic changes. If there is high concern for further derangement, consider MRI evaluation. CTA chest PE: Radiologist's Impression: [place] [id number] CT Scan Report Signed Patient: Niels Blackwood MR#: [id number] : 1965 Acct:[id number] Age/Sex: 58 / M Date of Service: 08/08/24 Loc: ED Accession Number: [id number] Procedure: CT angio chest PE protocol Ordering Provider: Nishant Blanc D.O. PROCEDURE: CT ANGIO CHEST PE PROTOCOL INDICATIONS: Syncope with intermittent hypoxemia TECHNIQUE: After the administration of intravenous contrast, 2 mm thick sections acquired from the pulmonary apices to the posterior costophrenic angles. 3-dimensional maximum intensity projection (MIP) coronal and sagittal reformats were then acquired through the thorax. For radiation dose reduction, the following was used: automated exposure control, adjustment of mA and/or kV according to patient size. COMPARISON: None. FINDINGS: Image quality: Mildly motion degraded Lungs and pleura: No dense airspace disease. No pleural effusions. There are many small pulmonary nodules, most of which probably represent granulomas. These could be followed in [address] with optional chest CT if the patient is considered at elevated risk for pulmonary malignancy. Mediastinum, heart, and esophagus: No central pulmonary embolism. The subsegmental arteries are obscured by motion artifact. Coronary calcifications. No pathologic lymph nodes by size criteria. There is mild bronchial wall thickening. Unremarkable esophagus Chest wall and thyroid: Unremarkable Upper abdomen: Unremarkable on these arterial phase images Bones: There are degenerative changes. Age-indeterminate anterior wedging of L2, probably nonacute. IMPRESSION: Motion degraded CT. No acute central pulmonary embolism. The subsegmental arteries are obscured by motion artifact. No dense airspace consolidation or pleural effusion. Mild bronchial wall thickening possibly bronchitis. Other findings as above. ECG Data Interpretation: EKG interpreted ED physician sinus 83 beats per minute, normal axis nonspecific ST changes, QTC 467, no STEMI MDM Narrative Medical decision making narrative: 58-year-old male with a past medical history of type 1 diabetes insulin dependent, hyperlipidemia, presents for hyperglycemia and syncopal episode, patient was in the parking lot when he had a syncopal episode, now complaining of headache nausea vomiting, and neck pain. He states that he was on his way to see his grandchild but states that he forgot to place his insulin pump back on this morning. At time of initial evaluation patient moving all 4 extremities NIH of 0, his blood glucose here read greater than 500. Patient was given 1 L normal saline and 10 units regular insulin subcutaneously. Patient did have lab work imaging EKG performed here in the emergency department. EKG nonischemic in nature, patient without any leukocytosis, patient with hypo natremia however with corrected sodium of 136-140, given glucose 549, patient with CT scan of the head neck without any acute intracranial abnormalities, CTA chest PE study without any acute abnormalities. Patient symptoms more likely secondary to transient hyperglycemia, however patient not in DKA. 1200: Was informed by nursing staff that patient started to become more altered, however patient is arousable with sternal rub, patient was placed on 2 L nasal cannula given transient episodes of hypoxia to the mid 80s, therefore PE study was added, ABG ordered 1250: Patient re-evaluated he is now more awake alert answering all questions appropriately 1424: Patient was re-evaluated again, he is now completely back to baseline he feels completely normal. He states that he wants to go home. His blood sugar is now 346. We will take patient off oxygen and ambulate if patient feeling normal/okay we will send patient home with outpatient follow up he understands agrees with this plan 1508: Patient had ambulation trial here in the emergency department, he did not need supplemental oxygen feels back to baseline, symptoms more likely secondary to his transient hyperglycemia. He was instructed to follow up with his primary care doctor, he was given strict return precautions at bedside feels safe and comfortable taking patient home, patient will be discharged home with outpatient follow up Discharge Plan Departure Patient Disposition: Home Clinical Impression: Syncope, Hyperglycemia due to type 1 diabetes mellitus Activity Restrictions/Additional Instructions: Please follow up with the primary care doctor Please read the discharge instructions sheet carefully and bring all papers to all doctor follow-up visits, as it may contain information that your doctor may want to see. Disease processes change and evolve, if your symptoms worsen or if you develop any new symptoms that are concerning to you please return for evaluation. Your evaluation today does not show any evidence of any life- threatening/serious illnesses requiring admission to the hospital or surgery. Please follow-up with your doctor for re-evaluation in approximately 1 day. Seek immediate medical attention for any worrisome symptoms. *If you do not have a primary care provider please contact the [facility] Resource line at [phone]. They will ask some questions about your medical history and help get you set up with a doctor in the community. Prescriptions: No Action insulin lispro [Humalog U-100 Insulin] 100 UNIT/1 ML solution See Rx Instructions .ROUTE .COMPLEX Qty: 0 Rx Instructions: per pump atorvastatin 40 mg tablet 40 mg PO BEDTIME Patient Comments: take 1 tablet by mouth at bedtime /// NEED TO DO LABWORK. mirtazapine 45 mg tablet 45 mg PO BEDTIME duloxetine 30 mg Capsule, Delayed Rel Sprinkle 30 mg PO DAILY meclizine 25 mg tablet,chewable 25 mg PO QID PRN (Reason: vertigo) Qty: 20 0RF Referrals: Dangelo Bowen MD [Primary Care Provider] - Stand Alone Forms: Patient Portal/API/Survey
[2024-08-08 11:37] LABS: Add Manual Diff / Slide Review NO; Basophils Absolute Auto 100 /uL (0-100); Basophils Percent Auto 1.1 % (0-2); Eosinophils Absolute Auto 0 /uL (0-450); Eosinophils Percent Auto 0.5 % (2-4); Hematocrit 40.9 % (41-53); Hemoglobin 13.9 g/dL (13.5-17.5); Lymphocytes Absolute Auto 800 /uL (1100-4500); Lymphocytes Percent Auto 10.3 % (25-40); Mean Corpuscular Hemoglobin 30.6 PG (26-34); Mean Corpuscular Volume 90.3 fL (80-100); Monocytes Absolute Auto 500 /uL (0-900); Monocytes Percent Auto 6.3 % (3-14); Neutrophils Absolute Auto 6400 /uL (1500-7000); Neutrophils Percent Auto 81.8 % (50-75); Platelet Count 204 X10^3/uL (150-400); Red Blood Cell Count 4.53 X10^6/uL (4.5-5.9); Red Cell Distribution Width 13.8 % (11.6-14.8); White Blood Cell Count 7.8 X10^3/uL (4.5-11.0)
--- NOTE | 2024-08-08 11:40 | PC.NURSE ---
Pt's O2 dropped to 86% RA on the way to CT, placed on 2L O2, decreased LOC. Physician aware.
[2024-08-08 11:42] LABS: INR 1.1 (0.9-1.3); Prothrombin Time 12.4 SECONDS (9.4-12.5)
[2024-08-08 11:45] LABS: PTT Partial Thromboplastin Tim 29 SECONDS (25.1-36.5)
[2024-08-08 11:49] LABS: Alanine Aminotransferase 26 IU/L (<50); Albumin 4.3 g/dL (3.5-5.0); Albumin Globulin Ratio 1.7 (1.0-2.8); Alkaline Phosphatase 87 U/L (38-126); Aspartate Aminotransferase 29 IU/L (17-59); Blood Urea Nitrogen 22 mg/dL (9-20); Calcium 9.5 mg/dL (8.4-10.2); Carbon Dioxide 18 mmol/L (22-32); Chloride 94 mmol/L (98-107); Creatine Kinase 108 U/L (55-170); Estimated Glomerular Filt Rate > 60 mL/min (>60); Globulin 2.5 g/dL (1.7-4.1); HEMOLYSIS 18 (0-50); Lipase 53 U/L (23-300); Magnesium 1.8 mg/dL (1.6-2.3); Potassium 4.8 mmol/L (3.4-5.1); Sodium 129 mmol/L (137-145); Total Protein 6.8 g/dL (6.3-8.2)
[2024-08-08 11:50] LABS: Glucose 549 mg/dL (80-110)
[2024-08-08] MEDS: INSULIN LISPRO 100 UNIT/ML 3ML VIAL 10 UNIT SUBCUT (11:56)
[2024-08-08] MEDS: SODIUM CHLORIDE 0.9% 1,000 ML 1000 ML IV (11:57)
[2024-08-08 12:00] LABS: NT-proBNP (BNP-Adult 18+) 91 pg/mL (<125); Troponin I < 0.012 ng/mL (0.01-0.034)
[2024-08-08 12:05] LABS: Base Excess VBG -4.9 mmol/L (0-4); HCO3 VBG 20 mmol/L (24-28); Oxygen Saturation VBG 90 % (70-75); PCO2 VBG 33.6 mmHg (45-50); PO2 VBG 60 mmHg (35-45); Total CO2 VBG 19 mmol/L (24-29); pH VBG 7.37 (7.33-7.43)
--- NOTE | 2024-08-08 12:18 | DI.CT.S_ITS ---
PROCEDURE: CT ANGIO CHEST PE PROTOCOL INDICATIONS: Syncope with intermittent hypoxemia TECHNIQUE: After the administration of intravenous contrast, 2 mm thick sections acquired from the pulmonary apices to the posterior costophrenic angles. 3-dimensional maximum intensity projection (MIP) coronal and sagittal reformats were then acquired through the thorax. For radiation dose reduction, the following was used: automated exposure control, adjustment of mA and/or kV according to patient size. COMPARISON: None. FINDINGS: Image quality: Mildly motion degraded Lungs and pleura: No dense airspace disease. No pleural effusions. There are many small pulmonary nodules, most of which probably represent granulomas. These could be followed in [address] with optional chest CT if the patient is considered at elevated risk for pulmonary malignancy. Mediastinum, heart, and esophagus: No central pulmonary embolism. The subsegmental arteries are obscured by motion artifact. Coronary calcifications. No pathologic lymph nodes by size criteria. There is mild bronchial wall thickening. Unremarkable esophagus Chest wall and thyroid: Unremarkable Upper abdomen: Unremarkable on these arterial phase images Bones: There are degenerative changes. Age-indeterminate anterior wedging of L2, probably nonacute. IMPRESSION: Motion degraded CT. No acute central pulmonary embolism. The subsegmental arteries are obscured by motion artifact. No dense airspace consolidation or pleural effusion. Mild bronchial wall thickening possibly bronchitis. Other findings as above. Dictated by: Josh Daniels M.D. on 08/08/2024 at 12:43 Approved by: Josh Daniels M.D. on 08/08/2024 at 12:47
[2024-08-08] MEDS: ONDANSETRON 4 MG/2 ML INJ IV (12:25)
--- NOTE | 2024-08-08 12:25 | PC.NURSE ---
Pt nauseous and vomiting in CT, given 4mg zofran, decreased LOC, physician aware. Suction available for use.
[2024-08-08 12:56] LABS: Allen Test for ABG Passed? Positive; Base Excess ABG -4.2 mmol/L (-2-3); Blood Gas Collection Site Right Radial; Delivery System Cannula; HCO3 ABG 20 mmol/L (23-27); Oxygen Saturation ABG 98 % (95-100); PCO2 ABG 34.9 mmHg (35-45); PO2 ABG 104 mmHg (80-100); TCO2 ABG 20 mmol/L (23-27); pH ABG 7.37 (7.35-7.45)
[2024-08-08 13:40] LABS: Appearance Urine UA CLEAR; Bilirubin Urine UA NEGATIVE (NEGATIVE); Color Urine UA YELLOW; Glucose Urine UA 3+ g/dL (Negative); Ketones Urine UA 3+ (NEGATIVE); Leukocyte Esterase Urine UA NEGATIVE (NEGATIVE); Nitrite Urine UA NEGATIVE (Negative); Occult Blood Urine UA NEGATIVE (Negative); Protein Urine UA NEGATIVE (Negative); Urobilinogen Urine UA 0.2 E.U./dL (0.2)
[2024-08-08 13:41] LABS: Urine Volume 10mL (spun)
[2024-08-08 13:45] LABS: Bacteria Urine None Seen; Culture Indicated Urine Cult Not Indicated; RBC Urine None Seen (0-5/HPF); Squamous Epithelial Cell Urine None Seen (0-5/HPF); WBC Urine None Seen (0-5/HPF)
== END 2024-08-08 15:38 | disposition home or self-care (01) ==
PROVIDERS: Emergency Provider Student in an Organized Health Care Education/Training Program; PCP Internal Medicine
DX: R55 Syncope and collapse (principal); E10.65 Type 1 diabetes mellitus with hyperglycemia; Z79.4 Long term (current) use of insulin; E78.5 Hyperlipidemia, unspecified; M54.2 Cervicalgia; R07.9 Chest pain, unspecified; R09.02 Hypoxemia
CPT/HCPCS: 36415; 36600; 70450; 71045; 71275; 72125; 80053; 81001; 82550; 82805; 82962; 83690; 83735; 83880; 84484; 85025; 85610; 85730; 93005; 93010; 96361; 96372; 96374; 99285; J1815; J2405; Q9967

== ENCOUNTER 2024-11-03 08:18 | Emergency (ER) | payer MEDICARE, SELFPAY ==
[2022-07-04 19:23] VITALS: BMI 23.9
[2024-11-03] VITALS (16 sets, daily range): BP systolic 107–171; BP diastolic 57–79; PULSE 44–77; RESP 12–23; TEMP 36.4; O2SAT 97–100; BMI 24.0
[2024-11-03 09:04] LABS: Add Manual Diff / Slide Review NO; Hematocrit 42.4 % (41-53); Hemoglobin 14.7 g/dL (13.5-17.5); Lymphocytes Absolute Auto 1000 /uL (1100-4500); Mean Corpuscular HGB Conc 34.7 % (30-36); Mean Corpuscular Hemoglobin 31.4 PG (26-34); Mean Corpuscular Volume 90.3 fL (80-100); Platelet Count 193 X10^3/uL (150-400)
[2024-11-03 09:09] LABS: Alanine Aminotransferase 26 IU/L (<50); Albumin 4.1 g/dL (3.5-5.0); Albumin Globulin Ratio 1.5 (1.0-2.8); Alkaline Phosphatase 64 U/L (38-126); Blood Urea Nitrogen 20 mg/dL (9-20); Calcium 9.3 mg/dL (8.4-10.2); Carbon Dioxide 27 mmol/L (22-32); Chloride 102 mmol/L (98-107); Estimated Glomerular Filt Rate > 60 mL/min (>60); Globulin 2.8 g/dL (1.7-4.1); Glucose 288 mg/dL (70-99); HEMOLYSIS 20 (0-50); Potassium 4.3 mmol/L (3.4-5.1); Sodium 135 mmol/L (137-145); Total Protein 6.9 g/dL (6.3-8.2)
[2024-11-03 09:15] LABS: Ketones (Beta-Hydroxybutyrate) 0.04 mmol/L (<0.27)
[2024-11-03] MEDS: SODIUM CHLORIDE 0.9% 1,000 ML 999 ML IV (09:24)
[2024-11-03 09:47] LABS: Base Excess VBG 3.7 mmol/L (0-4); HCO3 VBG 30 mmol/L (24-28); Oxygen Saturation VBG 49 % (70-75); PCO2 VBG 53.0 mmHg (45-50); PO2 VBG 28 mmHg (35-45); Total CO2 VBG 29 mmol/L (24-29); pH VBG 7.37 (7.33-7.43)
[2024-11-03 13:09] LABS: Appearance Urine UA CLEAR; Bilirubin Urine UA NEGATIVE (NEGATIVE); Color Urine UA YELLOW; Glucose Urine UA 3+ g/dL (Negative); Ketones Urine UA TRACE (NEGATIVE); Leukocyte Esterase Urine UA NEGATIVE (NEGATIVE); Nitrite Urine UA NEGATIVE (Negative); Occult Blood Urine UA NEGATIVE (Negative); Protein Urine UA NEGATIVE (Negative); Specific Gravity Urine UA 1.020 (1.000-1.035); Urobilinogen Urine UA 0.2 E.U./dL (0.2); pH Urine UA 6.0 (4.5-8.0)
[2024-11-03 13:15] LABS: Culture Indicated Urine Cult Not Indicated
--- NOTE | 2024-11-03 13:34 | ED.GENADULT ---
HPI - General Adult General Chief complaint: Abdominal Pain Stated complaint: Possible Morning Syndrome, Type1 Diabetes, 300gluc Time Seen by Provider: 11/03/24 08:48 Source: patient Mode of arrival: Ambulatory History of Present Illness HPI narrative: Pleasant 58-year-old man with a history of insulin-dependent diabetes who is on insulin pump comes to the ER because his blood sugars have been more difficult to control recently over the past 3 days than usual. He states he has been in DKA multiple times and that this does not feel like that at all. His concern is that he is requiring much more insulin via his pump than he usually does and his blood sugar is still not consistently going below 250. He is concerned about possible pump failure and is wondering what could be the cause of his more than usual difficulty to control the blood sugar. He is otherwise asymptomatic. Related Data Home Medications ?Medication ?Instructions ?Recorded ?Confirmed insulin lispro 100 unit/mL See Rx Instructions .Route 10/07/10 07/04/22 subcutaneous solution (Humalog .COMPLEX ##0 U-100 Insulin) atorvastatin 40 mg tablet 40 mg PO BEDTIME 07/04/22 07/04/22 duloxetine 30 mg capsule,delayed 30 mg PO DAILY 07/04/22 07/04/22 release sprinkle mirtazapine 45 mg tablet 45 mg PO BEDTIME 07/04/22 07/04/22 Previous Rx's ?Medication ?Instructions ?Recorded meclizine 25 mg chewable tablet 25 mg PO QID PRN vertigo #20 tabs 12/26/23 Allergies Allergy/AdvReac Type Severity Reaction Status Date / Time codeine (CODEINE) Allergy Severe Unconscious Verified 12/26/23 12:41 doxycycline (DOXYCYCLINE) Allergy Unknown Verified 12/26/23 12:41 omeprazole (OMEPRAZOLE) Allergy Unknown Verified 12/26/23 12:41 insulin aspart (From Novolog AdvReac Mild Rash at Verified 12/26/23 12:41 U-100 Insulin aspart) injection site Patient History Medical History Insulin dependent diabetes mellitus Social History household members: spouse Smoking Status: Unknown if ever smoked alcohol intake: current substance use type: does not use Smoking Status: Unknown if ever smoked alcohol intake frequency: 0-2 drinks per day Exam Initial Vital Signs Initial Vital Signs: Vital Signs Pulse Rate 77 11/03/24 08:29 Pulse Oximetry 100 11/03/24 08:29 Const General: No acute distress and No ill appearing HENMT Head: normal to inspection, normocephalic and atraumatic Eyes General: Yes appearance normal, both eyes and all related structures Neck Neck: normal visual inspection Resp Effort & Inspection: normal respiratory effort Auscultation: clear to auscultation bilaterally Cardio Rate: regular rate Rhythm: regular rhythm Heart Sounds: S1 normal and S2 normal GI Inspection: normal to inspection Palpation: soft and No tender Auscultation: normal bowel sounds Course Course Course Narrative: Patient seen and examined by myself upon arrival in the ER. There was very low concern for DKA given his vital signs and his blood sugar less than 300 as well as him not feeling like his usual DKA. Nevertheless this was ruled out with serology. We had a lengthy discussion about the patient's situation and how recently his insulin requirements have been climbing. He denies any recent changes in diet or weight changes. It seems like he could possibly have worsening type 2 diabetes superimposed on his type 1 diabetes which is why as insulin requirements are climbing now. His insulin is currently being managed by a family PA, which is likely not appropriate given the complicated nature of his diabetes he should be seeing endocrinology. Therefore, I referred him to the new local concrete mixer operator helper who seems to be accepting patients and accepts the patient's insurance. Otherwise, I advised him to return to the ER for blood sugars that are consistently over 300. His blood sugar came as low as the low 200s while in the ER. I also gave him instructions about how to titrate up his insulin dose and emphasize many times that the main point is that he do it very slowly not increasing by more than 1 or 2 units per day. The patient was in agreement with this plan. Orders Ordered: ED Orders 11/03/24 08:43 CMP [Comprehensive Metabolic Panel] Stat Complete Blood Count AUTO DIFF Stat Ketones (Beta-Hydroxybutyrate) Stat 11/03/24 08:49 Venous Blood Gas STAT 11/03/24 09:41 Venous Blood Gas Routine 11/03/24 13:00 Urinalysis and Microscopic Stat Discontinued Medications Sodium Chloride (Normal Saline 0.9%) 1,000 mls @ 999 mls/hr IV BOLUS ONE Stop: 11/03/24 09:49 Last Infusion: 11/03/24 11:13 Dose: Infused Documented By: Admin: 11/03/24 09:24 Dose: 999 mls/hr Documented By: TOBIAS Vital Signs Vital signs: Vital Signs - 8 hr 11/03/24 08:29 11/03/24 08:30 11/03/24 08:30 Temperature Pulse Rate 77 65 Respiratory Rate Blood Pressure 107/57 L Pulse Oximetry 100 100 Oxygen Delivery Method 11/03/24 08:46 11/03/24 09:00 11/03/24 09:30 Temperature 97.6 F Pulse Rate 63 62 57 L Respiratory Rate 19 12 Blood Pressure 107/57 L Pulse Oximetry 100 100 99 Oxygen Delivery Method Room Air 11/03/24 10:00 11/03/24 10:00 11/03/24 10:30 Temperature Pulse Rate 55 L Respiratory Rate 16 Blood Pressure 131/74 149/70 H Pulse Oximetry 97 Oxygen Delivery Method 11/03/24 10:30 11/03/24 11:00 11/03/24 11:00 Temperature Pulse Rate 50 L 51 L Respiratory Rate 18 Blood Pressure 156/78 H Pulse Oximetry 99 99 Oxygen Delivery Method 11/03/24 11:30 11/03/24 11:31 11/03/24 11:31 Temperature Pulse Rate 57 L Respiratory Rate 15 14 Blood Pressure 167/79 H Pulse Oximetry 100 100 Oxygen Delivery Method 11/03/24 12:00 11/03/24 12:01 11/03/24 12:01 Temperature Pulse Rate 44 L 48 L Respiratory Rate 19 15 Blood Pressure 155/71 H Pulse Oximetry 99 99 Oxygen Delivery Method 11/03/24 12:30 11/03/24 12:30 11/03/24 13:00 Temperature Pulse Rate 48 L 49 L Respiratory Rate 18 23 Blood Pressure 157/78 H Pulse Oximetry 100 97 Oxygen Delivery Method Medical Decision Making Lab Data 11/03/24 08:43 11/03/24 08:43 Labs: Lab Results 11/03/24 11/03/24 11/03/24 Range/Units 08:28 08:43 09:41 WBC 5.1 (4.5-11.0) X10^3/uL RBC 4.69 (4.5-5.9) X10^6/uL Hgb 14.7 (13.5-17.5) g/dL Hct 42.4 (41-53) % MCV 90.3 (80-100) fL MCH 31.4 (26-34) PG MCHC 34.7 (30-36) % RDW 12.6 (11.6-14.8) % Plt Count 193 (150-400) X10^3/uL Neut % (Auto) 70.0 (50-75) % Lymph % (Auto) 19.2 L (25-40) % [place] % (Auto) 8.7 (3-14) % Eos % (Auto) 1.0 L (2-4) % Baso % (Auto) 1.1 (0-2) % Neut # (Auto) 3600 (3662-4799) /uL Lymph # (Auto) 1000 L (8543-9492) /uL [place] # (Auto) 400 (0-900) /uL Eos # (Auto) 0 (0-450) /uL Baso # (Auto) 100 (0-100) /uL VBG pH 7.37 (7.33-7.43) VBG pCO2 53.0 H (45-50) mmHg VBG pO2 28 L (35-45) mmHg VBG HCO3 30 H (24-28) mmol/L VBG Total CO2 29 (24-29) mmol/L VBG O2 Saturation 49 L (70-75) % VBG Base Excess 3.7 (0-4) mmol/L FiO2 % 21.0 % % Sodium 135 L (137-145) mmol/L Potassium 4.3 (3.4-5.1) mmol/L Chloride 102 (98-107) mmol/L Carbon Dioxide 27 (22-32) mmol/L BUN 20 (9-20) mg/dL Creatinine 0.87 (0.66-1.25) mg/dL Estimated GFR > 60 (>60) mL/min BUN/Creatinine Ratio 23.0 H (6-22) Glucose 288 H (70-99) mg/dL POC Whole Bld Glucose 294 H (70-99) mg/dL Calcium 9.3 (8.4-10.2) mg/dL Total Bilirubin 0.8 (0.2-1.3) mg/dL AST 28 (17-59) IU/L ALT 26 (<50) IU/L Alkaline Phosphatase 64 (38-126) U/L Total Protein 6.9 (6.3-8.2) g/dL Albumin 4.1 (3.5-5.0) g/dL Globulin 2.8 (1.7-4.1) g/dL Albumin/Globulin Ratio 1.5 (1.0-2.8) Urine Color Urine Appearance Urine pH (4.5-8.0) Ur Specific [place] (1.000-1.035) Urine Protein (Negative) Urine Glucose (UA) (Negative) g/dL Urine Ketones (NEGATIVE) Urine Occult Blood (Negative) Urine Nitrate (Negative) Urine Bilirubin (NEGATIVE) Urine Urobilinogen (0.2) E.U./dL Ur Leukocyte Esterase (NEGATIVE) Urine RBC (0-5/HPF) Urine WBC (0-5/HPF) Ur Squamous Epith Cells (0-5/HPF) Urine Bacteria (None) Ur Culture Indicated? Vol Urine Centrifuged Ketones 0.04 (<0.27) mmol/L 11/03/24 11/03/24 11/03/24 Range/Units 09:58 10:57 11:53 WBC (4.5-11.0) X10^3/uL RBC (4.5-5.9) X10^6/uL Hgb (13.5-17.5) g/dL Hct (41-53) % MCV (80-100) fL MCH (26-34) PG MCHC (30-36) % RDW (11.6-14.8) % Plt Count (150-400) X10^3/uL Neut % (Auto) (50-75) % Lymph % (Auto) (25-40) % [place] % (Auto) (3-14) % Eos % (Auto) (2-4) % Baso % (Auto) (0-2) % Neut # (Auto) (1518-7598) /uL Lymph # (Auto) (4881-2504) /uL [place] # (Auto) (0-900) /uL Eos # (Auto) (0-450) /uL Baso # (Auto) (0-100) /uL VBG pH (7.33-7.43) VBG pCO2 (45-50) mmHg VBG pO2 (35-45) mmHg VBG HCO3 (24-28) mmol/L VBG Total CO2 (24-29) mmol/L VBG O2 Saturation (70-75) % VBG Base Excess (0-4) mmol/L FiO2 % % Sodium (137-145) mmol/L Potassium (3.4-5.1) mmol/L Chloride (98-107) mmol/L Carbon Dioxide (22-32) mmol/L BUN (9-20) mg/dL Creatinine (0.66-1.25) mg/dL Estimated GFR (>60) mL/min BUN/Creatinine Ratio (6-22) Glucose (70-99) mg/dL POC Whole Bld Glucose 225 H 212 H 238 H (70-99) mg/dL Calcium (8.4-10.2) mg/dL Total Bilirubin (0.2-1.3) mg/dL AST (17-59) IU/L ALT (<50) IU/L Alkaline Phosphatase (38-126) U/L Total Protein (6.3-8.2) g/dL Albumin (3.5-5.0) g/dL Globulin (1.7-4.1) g/dL Albumin/Globulin Ratio (1.0-2.8) Urine Color Urine Appearance Urine pH (4.5-8.0) Ur Specific [place] (1.000-1.035) Urine Protein (Negative) Urine Glucose (UA) (Negative) g/dL Urine Ketones (NEGATIVE) Urine Occult Blood (Negative) Urine Nitrate (Negative) Urine Bilirubin (NEGATIVE) Urine Urobilinogen (0.2) E.U./dL Ur Leukocyte Esterase (NEGATIVE) Urine RBC (0-5/HPF) Urine WBC (0-5/HPF) Ur Squamous Epith Cells (0-5/HPF) Urine Bacteria (None) Ur Culture Indicated? Vol Urine Centrifuged Ketones (<0.27) mmol/L 11/03/24 11/03/24 Range/Units 13:00 13:08 WBC (4.5-11.0) X10^3/uL RBC (4.5-5.9) X10^6/uL Hgb (13.5-17.5) g/dL Hct (41-53) % MCV (80-100) fL MCH (26-34) PG MCHC (30-36) % RDW (11.6-14.8) % Plt Count (150-400) X10^3/uL Neut % (Auto) (50-75) % Lymph % (Auto) (25-40) % [place] % (Auto) (3-14) % Eos % (Auto) (2-4) % Baso % (Auto) (0-2) % Neut # (Auto) (8760-9721) /uL Lymph # (Auto) (6950-8962) /uL [place] # (Auto) (0-900) /uL Eos # (Auto) (0-450) /uL Baso # (Auto) (0-100) /uL VBG pH (7.33-7.43) VBG pCO2 (45-50) mmHg VBG pO2 (35-45) mmHg VBG HCO3 (24-28) mmol/L VBG Total CO2 (24-29) mmol/L VBG O2 Saturation (70-75) % VBG Base Excess (0-4) mmol/L FiO2 % % Sodium (137-145) mmol/L Potassium (3.4-5.1) mmol/L Chloride (98-107) mmol/L Carbon Dioxide (22-32) mmol/L BUN (9-20) mg/dL Creatinine (0.66-1.25) mg/dL Estimated GFR (>60) mL/min BUN/Creatinine Ratio (6-22) Glucose (70-99) mg/dL POC Whole Bld Glucose 277 H (70-99) mg/dL Calcium (8.4-10.2) mg/dL Total Bilirubin (0.2-1.3) mg/dL AST (17-59) IU/L ALT (<50) IU/L Alkaline Phosphatase (38-126) U/L Total Protein (6.3-8.2) g/dL Albumin (3.5-5.0) g/dL Globulin (1.7-4.1) g/dL Albumin/Globulin Ratio (1.0-2.8) Urine Color Yellow Urine Appearance Clear Urine pH 6.0 (4.5-8.0) Ur Specific [place] 1.020 (1.000-1.035) Urine Protein Negative (Negative) Urine Glucose (UA) 3+ H (Negative) g/dL Urine Ketones Trace H (NEGATIVE) Urine Occult Blood Negative (Negative) Urine Nitrate Negative (Negative) Urine Bilirubin Negative (NEGATIVE) Urine Urobilinogen 0.2 (0.2) E.U./dL Ur Leukocyte Esterase Negative (NEGATIVE) Urine RBC 0-1/hpf (0-5/HPF) Urine WBC None seen (0-5/HPF) Ur Squamous Epith Cells 0-1 /hpf (0-5/HPF) Urine Bacteria None seen (None) Ur Culture Indicated? Cult not indicated Vol Urine Centrifuged 10ml (spun) Ketones (<0.27) mmol/L Discharge Plan Departure Patient Disposition: Home Clinical Impression: Hyperglycemia Instructions: Complications of Diabetes (Alternative Therapy) Activity Restrictions/Additional Instructions: Please return to the ER if your blood sugar is over 350 or if you have any of your previous symptoms of DKA or any other concerns or complaints. Otherwise, you do need to see an concrete mixer operator helper as soon as possible as it seems you may have combined type 1 and type 2 diabetes which is a complicated situation which is not appropriate to be managed by primary care. Prescriptions: No Action insulin lispro [Humalog U-100 Insulin] 100 UNIT/1 ML solution See Rx Instructions .ROUTE .COMPLEX Qty: 0 Rx Instructions: per pump atorvastatin 40 mg tablet 40 mg PO BEDTIME Patient Comments: take 1 tablet by mouth at bedtime /// NEED TO DO LABWORK. mirtazapine 45 mg tablet 45 mg PO BEDTIME duloxetine 30 mg Capsule, Delayed Rel Sprinkle 30 mg PO DAILY meclizine 25 mg tablet,chewable 25 mg PO QID PRN (Reason: vertigo) Qty: 20 0RF Referrals: Dangelo Bowen MD [Primary Care Provider, Internal Medicine] - As soon as possible Kennedy Lorenzo DO [Non-Staff, Medical] - As soon as possible Referral Note: Referral for Type 1 DM. Maybe combined type 1 and type 2 as insulin requirements are incerasing recently. Stand Alone Forms: Patient Portal/API
== END 2024-11-03 13:43 | disposition home or self-care (01) ==
PROVIDERS: Emergency Provider Emergency Medicine; PCP Internal Medicine
DX: E10.65 Type 1 diabetes mellitus with hyperglycemia (principal); Z96.41 Presence of insulin pump (external) (internal)
CPT/HCPCS: 36415; 80053; 81001; 82009; 82805; 82962; 85025; 96360; 96361; 99284

== ENCOUNTER 2025-03-17 11:15 | Emergency (ER) | payer MEDICARE, SELFPAY ==
[2022-07-04 19:23] VITALS: BMI 23.9
[2025-03-17] VITALS (10 sets, daily range): BP systolic 71–125; BP diastolic 50–79; PULSE 64–81; RESP 16–21; TEMP 36.4; O2SAT 92–98
--- NOTE | 2025-03-17 11:49 | DI.MRI.S_ITS ---
PROCEDURE: MR THORACIC SPINE WO/W CON INDICATIONS: right leg weakness, shock TECHNIQUE: Noncontrast sagittal T1 spin echo and T2 fast spin echo, sagittal STIR, axial T1 and T2 fast spin echo through the thoracic spine. After the administration of contrast, axial and sagittal T1 spin echo with fat saturation through the thoracic spine. COMPARISON: [facility], , MR LUMBAR SPINE WO/W CON, 03/17/2025, 14:16. FINDINGS: Image quality: Diagnostic Alignment and curvature: No sagittal listhesis. Marrow: No acute fracture. Chronic mild well corticated, partially visualized, superior endplate compression fracture of L2 without adjacent bone marrow edema. Degenerative discogenic bone marrow edema and slight enhancement at T5-6, T7-8, and T11-12 with sub endplate fatty metaplasia, consistent with acute on chronic degenerative change. Spinal cord: Visualized spinal cord is of normal signal and size, without abnormal enhancement. Paraspinous soft tissues: No paravertebral masses or abnormal enhancement. Miscellaneous: Mild spinal canal stenosis at T5-6, T6-7, T7-8, T8-9 mild T10- 11, and T11-12 secondary to posterior osteophytosis and superimposed, mild bulging disc. Mild left neural foraminal stenosis at T5-6 due to subarticular site disc bulge and minimal facet arthrosis. Moderate bilateral neural foraminal stenosis at T10-11 and T11-12 secondary to subarticular osteophytosis and facet arthrosis. IMPRESSION: 1. No acute spinal abnormality. 2. Multilevel mild spinal canal stenosis, which is greatest at T10-11. 3. Multilevel neural foraminal stenosis reaches moderate bilaterally at T10-11 and T11-12. 4. Degenerative discogenic bone marrow edema at T5-6, T7-8, and T11-10. These findings are not consistent with infectious discitis or osteomyelitis. Dictated by: Joaquim Diallo M.D. on 03/17/2025 at 15:12 Approved by: Joaquim Diallo M.D. on 03/17/2025 at 15:20
--- NOTE | 2025-03-17 11:49 | DI.MRI.S_ITS ---
PROCEDURE: MR LUMBAR SPINE WO/W CON INDICATIONS: right leg weakness, urinary incontinence, shock TECHNIQUE: Noncontrast sagittal T1 spin echo and T2 fast spin echo, sagittal STIR, axial T1 and T2 fast spin echo through the lumbar spine. In cases with scoliosis, additional coronal T2 fast spin echo may be performed. After the administration of contrast, sagittal and axial T1 spin echo with fat saturation through the lumbar spine. COMPARISON: None. FINDINGS: Image quality: Excellent. Alignment and curvature: There straightening of the usual lumbar lordosis. Mild, grade 1, 1 mm, retrolisthesis of L1 on L2 and L2 on L3. Marrow: Overall normal background bone marrow signal. Chronic, well corticated, compression deformity of L1 which results in 45 percent anterior vertebral body height loss. Chronic mild well corticated, nondominant scotoma compression deformity of the anterior superior endplate of L5 which results in 40 percent vertebral body height loss. Chronic mild degenerative changes at T12-L1, L1-2, L2-3, and L4-5 with sub endplate fatty metaplasia. No suspicious, confluent, marrow destructive process. Spinal cord: Conus medullaris terminates at the T11-12 level. Visualized spinal cord demonstrates normal signal, without suspicious enhancement. Paraspinous soft tissues: No paravertebral masses or abnormal enhancement. T12-L1: Mild spinal canal stenosis due to disc height loss mild superimposed, diffusely bulging disc, and mild bilateral facet arthrosis. Mild bilateral neural foraminal stenosis due to subarticular bulging disc and facet arthrosis. L1-L2: Mild spinal canal stenosis due to diffusely bulging disc and mild ligamentum flavum thickening. No neural foraminal stenosis. L2-L3: Mild spinal canal stenosis due to mild retrolisthesis disc uncovering, ligamentum flavum thickening, and facet arthrosis. Right moderate and left mild neural foraminal stenosis due to subarticular osteophytosis and mild disc bulge, and facet arthrosis. L3-L4: Mildly desiccated disc. No spinal canal or neural foraminal stenosis. L4-L5: Mild spinal canal and bilateral mild lateral recess stenosis due to a diffusely bulging disc, ligamentum flavum thickening, facet arthrosis, and mild disc height loss. Right moderate and left mild neural foraminal stenosis due to subarticular bulging disc and facet arthrosis. L5-S1: No spinal canal or neural foraminal stenosis. IMPRESSION: 1. No acute spinal abnormality. No findings consistent with infectious process. 2. Multilevel mild spinal canal stenosis at T12-L1, L1-2, L2-3, and L4-5. 3. Multilevel neural foraminal stenosis which reaches moderate on the right at L2-3 and L4-5. 4. Chronic vertebral body compression fractures of the anterior superior endplate of L1 and L5 with approximate 40 percent vertebral body height loss. Dictated by: Joaquim Diallo M.D. on 03/17/2025 at 15:20 Approved by: Joaquim Diallo M.D. on 03/17/2025 at 15:26
--- NOTE | 2025-03-17 11:49 | EKG_ITS ---
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
--- NOTE | 2025-03-17 12:03 | ED.BACK ---
HPI - Back Pain/Injury General Chief Complaint: Back Pain/Injury Stated Complaint: back pain 14 days Time Seen by Provider: 03/17/25 11:49 Source: patient History of Present Illness HPI Narrative: Patient is a 59-year-old male history of insulin-dependent diabetes, prior lumbar compression fracture here for increasing back pain. He reports that over the last couple of weeks he has had increasing urinary incontinence says that he has to wear a diaper while driving in the car because he urinates on himself. He is having increasing bilateral leg weakness and numbness. There is more numbness and tingling on the right than the left. He denies any further injury. No fever or chills. He has not had back injections. He is noted to be hypotensive blood pressure was taken twice he has a systolic in the 70s. He feels a little weak and dizzy he is not tachycardic. Related Data Home Medications ?Medication ?Instructions ?Recorded ?Confirmed insulin lispro 100 unit/mL See Rx Instructions .Route 10/07/10 07/04/22 subcutaneous solution (Humalog .COMPLEX ##0 U-100 Insulin) atorvastatin 40 mg tablet 40 mg PO BEDTIME 07/04/22 07/04/22 duloxetine 30 mg capsule,delayed 30 mg PO DAILY 07/04/22 07/04/22 release sprinkle mirtazapine 45 mg tablet 45 mg PO BEDTIME 07/04/22 07/04/22 Previous Rx's ?Medication ?Instructions ?Recorded meclizine 25 mg chewable tablet 25 mg PO QID PRN vertigo #20 tabs 12/26/23 oxycodone-acetaminophen 5 mg-325 1 tab PO Q6H PRN pain #10 tabs 03/17/25 mg tablet (Percocet) Allergies Allergy/AdvReac Type Severity Reaction Status Date / Time codeine (CODEINE) Allergy Severe Unconscious Verified 12/26/23 12:41 doxycycline (DOXYCYCLINE) Allergy Unknown Verified 12/26/23 12:41 omeprazole (OMEPRAZOLE) Allergy Unknown Verified 12/26/23 12:41 insulin aspart (From Novolog AdvReac Mild Rash at Verified 12/26/23 12:41 U-100 Insulin aspart) injection site Patient History Medical History Insulin dependent diabetes mellitus Social History household members: spouse alcohol intake: current substance use type: does not use alcohol intake frequency: 0-2 drinks per day Exam Initial Vital Signs Initial Vital Signs: Vital Signs Temperature 97.6 F 03/17/25 11:40 Pulse Rate 81 03/17/25 11:40 Respiratory Rate 16 03/17/25 11:40 Blood Pressure 71/50 L 03/17/25 11:40 Pulse Oximetry 96 03/17/25 11:40 Oxygen Delivery Method Room Air 03/17/25 11:40 GENERAL: Alert slightly disheveled 59-year-old male HEENT: Head atraumatic,EOMI, pupils reactive, face symmetric, moist mucous membranes CARDIOVASCULAR: Regular rate and rhythm without murmurs, rubs or gallops. RESPIRATORY: Breath sounds equal bilaterally, no wheezes rales or rhonchi. ABDOMEN: Soft, nontender. Normoactive bowel sounds all 4 quadrants. No guarding or rebound. BACK: No vertebral tenderness no step-off EXTREMITIES: Normal range of motion, no clubbing or edema. Neurovascularly intact NEUROLOGICAL: Alert and oriented x4. Sensation in right leg is decreased compared to the left significantly weekend right leg but he is able to lift with the psoas muscle. SKIN: Warm, dry, no laceration, no petechiae, no rashes or lesions. Course Orders Ordered: Discontinued Medications Ceftriaxone Sodium 2,000 mg/ (Sodium Chloride) 100 mls @ 200 mls/hr IV STAT ONE Stop: 03/17/25 11:50 Last Infusion: 03/17/25 14:02 Dose: Infused Documented By: Admin: 03/17/25 12:38 Dose: 200 mls/hr Documented By: KANCHAN Sodium Chloride (Normal Saline 0.9%) 1,000 mls @ 1,000 mls/hr IV BOLUS ONE Stop: 03/17/25 12:48 Last Infusion: 03/17/25 14:01 Dose: Infused Documented By: Admin: 03/17/25 12:38 Dose: 1,000 mls/hr Documented By: KANCHAN Lorazepam (Lorazepam 2 Mg/Ml Inj) 1 mg IV NOW ONE Stop: 03/17/25 13:57 Last Admin: 03/17/25 14:05 Dose: 1 mg Documented By: CB Vital Signs Vital signs: Vital Signs - 8 hr 03/17/25 11:40 03/17/25 12:08 03/17/25 12:08 Temperature 97.6 F Pulse Rate 81 Respiratory Rate 16 Blood Pressure 71/50 L 108/56 L Pulse Oximetry 96 96 Oxygen Delivery Method Room Air 03/17/25 12:30 03/17/25 13:00 03/17/25 13:30 Temperature Pulse Rate 74 67 64 Respiratory Rate 20 19 19 Blood Pressure Pulse Oximetry 93 92 95 Oxygen Delivery Method 03/17/25 14:00 03/17/25 14:07 03/17/25 14:07 Temperature Pulse Rate 64 65 Respiratory Rate 21 17 Blood Pressure 109/58 L Pulse Oximetry 97 98 Oxygen Delivery Method MDM - Back Pain/Injury Lab Data 03/17/25 12:15 03/17/25 12:15 Labs: Lab Results 03/17/25 Range/Units 12:15 WBC 6.5 (4.5-11.0) X10^3/uL RBC 4.66 (4.5-5.9) X10^6/uL Hgb 14.0 (13.5-17.5) g/dL Hct 41.0 (41-53) % MCV 88.0 (80-100) fL MCH 30.0 (26-34) PG MCHC 34.1 (30-36) % RDW 12.6 (11.6-14.8) % Plt Count 177 (150-400) X10^3/uL Neut % (Auto) 81.4 H (50-75) % Lymph % (Auto) 11.5 L (25-40) % Beadle % (Auto) 5.7 (3-14) % Eos % (Auto) 0.5 L (2-4) % Baso % (Auto) 0.9 (0-2) % Neut # (Auto) 5300 (9217-0169) /uL Lymph # (Auto) 700 L (4724-9916) /uL Beadle # (Auto) 400 (0-900) /uL Eos # (Auto) 0 (0-450) /uL Baso # (Auto) 100 (0-100) /uL ESR 3 (0-15) MM/HR PT 11.0 (9.4-12.5) SECONDS INR 1.0 (0.9-1.3) APTT 23 L (25.1-36.5) SECONDS Sodium 129 L (137-145) mmol/L Potassium 4.3 (3.4-5.1) mmol/L Chloride 98 (98-107) mmol/L Carbon Dioxide 18 L (22-32) mmol/L BUN 34 H (9-20) mg/dL Creatinine 1.13 (0.66-1.25) mg/dL Estimated GFR > 60 (>60) mL/min BUN/Creatinine Ratio 30.1 H (6-22) Glucose 552 H* (70-99) mg/dL Hemoglobin A1c 11.2 H (4.0-6.0) % Lactate 2.0 (0.7-2.1) mmol/L Calcium 9.1 (8.4-10.2) mg/dL Total Bilirubin 1.3 (0.2-1.3) mg/dL AST 27 (17-59) IU/L ALT 21 (<50) IU/L Alkaline Phosphatase 70 (38-126) U/L C-Reactive Protein < 0.5 (<1.0) mg/dL Total Protein 6.4 (6.3-8.2) g/dL Albumin 3.9 (3.5-5.0) g/dL Globulin 2.5 (1.7-4.1) g/dL Albumin/Globulin Ratio 1.6 (1.0-2.8) Procalcitonin 0.073 (<0.5) ng/mL Imaging Data MR thoracic: Radiologist's Impression: PROCEDURE: MR THORACIC SPINE WO/W CON INDICATIONS: right leg weakness, shock TECHNIQUE: Noncontrast sagittal T1 spin echo and T2 fast spin echo, sagittal STIR, axial T1 and T2 fast spin echo through the thoracic spine. After the administration of contrast, axial and sagittal T1 spin echo with fat saturation through the thoracic spine. COMPARISON: [facility], , MR LUMBAR SPINE WO/W CON, 03/17/2025, 14:16. FINDINGS: Image quality: Diagnostic Alignment and curvature: No sagittal listhesis. Marrow: No acute fracture. Chronic mild well corticated, partially visualized, superior endplate compression fracture of L2 without adjacent bone marrow edema. Degenerative discogenic bone marrow edema and slight enhancement at T5-6, T7-8, and T11-12 with sub endplate fatty metaplasia, consistent with acute on chronic degenerative change. Spinal cord: Visualized spinal cord is of normal signal and size, without abnormal enhancement. Paraspinous soft tissues: No paravertebral masses or abnormal enhancement. Miscellaneous: Mild spinal canal stenosis at T5-6, T6-7, T7-8, T8-9 mild T10-11, and T11-12 secondary to posterior osteophytosis and superimposed, mild bulging disc. Mild left neural foraminal stenosis at T5-6 due to subarticular site disc bulge and minimal facet arthrosis. Moderate bilateral neural foraminal stenosis at T10-11 and T11-12 secondary to subarticular osteophytosis and facet arthrosis. IMPRESSION: 1. No acute spinal abnormality. 2. Multilevel mild spinal canal stenosis, which is greatest at T10-11. 3. Multilevel neural foraminal stenosis reaches moderate bilaterally at T10-11 and T11-12. 4. Degenerative discogenic bone marrow edema at T5-6, T7-8, and T11-10. These findings are not consistent with infectious discitis or osteomyelitis. Dictated by: Joaquim Diallo M.D. on 03/17/2025 at 15:12 MR lumbar: Radiologist's Impression: PROCEDURE: MR LUMBAR SPINE WO/W CON INDICATIONS: right leg weakness, urinary incontinence, shock TECHNIQUE: Noncontrast sagittal T1 spin echo and T2 fast spin echo, sagittal STIR, axial T1 and T2 fast spin echo through the lumbar spine. In cases with scoliosis, additional coronal T2 fast spin echo may be performed. After the administration of contrast, sagittal and axial T1 spin echo with fat saturation through the lumbar spine. COMPARISON: None. FINDINGS: Image quality: Excellent. Alignment and curvature: There straightening of the usual lumbar lordosis. Mild, grade 1, 1 mm, retrolisthesis of L1 on L2 and L2 on L3. Marrow: Overall normal background bone marrow signal. Chronic, well corticated, compression deformity of L1 which results in 45 percent anterior vertebral body height loss. Chronic mild well corticated, nondominant scotoma compression deformity of the anterior superior endplate of L5 which results in 40 percent vertebral body height loss. Chronic mild degenerative changes at T12-L1, L1-2, L2-3, and L4-5 with sub endplate fatty metaplasia. No suspicious, confluent, marrow destructive process. Spinal cord: Conus medullaris terminates at the T11-12 level. Visualized spinal cord demonstrates normal signal, without suspicious enhancement. Paraspinous soft tissues: No paravertebral masses or abnormal enhancement. T12-L1: Mild spinal canal stenosis due to disc height loss mild superimposed, diffusely bulging disc, and mild bilateral facet arthrosis. Mild bilateral neural foraminal stenosis due to subarticular bulging disc and facet arthrosis. L1-L2: Mild spinal canal stenosis due to diffusely bulging disc and mild ligamentum flavum thickening. No neural foraminal stenosis. L2-L3: Mild spinal canal stenosis due to mild retrolisthesis disc uncovering, ligamentum flavum thickening, and facet arthrosis. Right moderate and left mild neural foraminal stenosis due to subarticular osteophytosis and mild disc bulge, and facet arthrosis. L3-L4: Mildly desiccated disc. No spinal canal or neural foraminal stenosis. L4-L5: Mild spinal canal and bilateral mild lateral recess stenosis due to a diffusely bulging disc, ligamentum flavum thickening, facet arthrosis, and mild disc height loss. Right moderate and left mild neural foraminal stenosis due to subarticular bulging disc and facet arthrosis. L5-S1: No spinal canal or neural foraminal stenosis. IMPRESSION: 1. No acute spinal abnormality. No findings consistent with infectious process. 2. Multilevel mild spinal canal stenosis at T12-L1, L1-2, L2-3, and L4-5. 3. Multilevel neural foraminal stenosis which reaches moderate on the right at L2-3 and L4-5. 4. Chronic vertebral body compression fractures of the anterior superior endplate of L1 and L5 with approximate 40 percent vertebral body height loss. Dictated by: Joaquim Diallo M.D. on 03/17/2025 at 15:20 [facility] Narrative Medical decision making narrative: [facility] CC: Back pain Complicating co-morbidities: Uncontrolled insulin-dependent diabetes Data collected from: Patient Medical records reviewed: ED records reviewed Differential considered: Neurogenic shock, septic shock, epidural abscess, cauda equina Exam documented above, pertinent findings include: Alert 59-year-old male he does have significant weakness on the right side of decreased sensation on the right versus the left Lab Test results independently reviewed as above. Pertinent findings: CBC no leukocytosis, Lactate 2.0, procalcitonin 0.073 anion gap 13 Sodium is 129 potassium 4.3 chloride 98 bicarb 18 BUN 34 creatinine 1.1 glucose critically elevated at 552 Hemoglobin A1c 11.2 Troponin negative Independently reviewed EKG as above Imaging studies independently reviewed: MR lumbar: no acute spinal abnormalities MR THORACIC: No acute spinal abnormality. Mid-level mild spinal canal stenosis at T10-T12. Mid-level neural stenosis reaches moderate bilateral T10-T11 to of in Consultations:none Treatments: IV FLUIDS, ROCEPHIN, Ativan given for claustrophobia for MRI Re-evaluations: [ ] Discussion: Patient is 59-year-old male insulin-dependent diabetes presenting to day with increasing back pain and leg weakness along with urinary incontinence. Concern for cauda equina or epidural abscess. He initially was found to be hypotensive in triage with a systolic in 71 however once he got back to room and it was retaken he has a systolic in the 100s. He was empirically given antibiotics and IV fluids. Be it he has no sign of severe sepsis he has lactic acid of 2.0 procalcitonin 0.073 and a normal white count. He actually has no evidence of infection. Urinalysis is negative, no upper respiratory symptoms imaging of his back does not show an epidural abscess or diskitis. No need for ongoing antibiotics. He has no evidence of severe dehydration has a normal creatinine. Unclear what caused his initial hypotension but he has not been hypotensive after multiple hours in the ED. no evidence of shock. Patient reports that he is waiting on insulin sensors to control his blood sugar. He does not have any evidence of DKA. Reports he is having some pain. We will go ahead and send him home with a couple of Percocets. Discharge Plan Departure Patient Disposition: Home Clinical Impression: Acute hyperglycemia, Diabetes, Acute exacerbation of chronic low back pain Instructions: DI for Low Back Pain Activity Restrictions/Additional Instructions: *You have been diagnosed with acute on chronic back pain, diabetes *What to do: At this time you are having worsening back pain but no emergency or need for surgery now. It is best if you help control your diabetes. *Continue to take medications as directed Percocet 1 tablet every 6 hours if needed for severe pain *Follow up with your primary care provider in 2-3 days or call [phone] *Return to ER if you should have increasing leg weakness or any new, worsening or concerning symptoms CONTROLLED SUBSTANCE DISCHARGE (Narcotoic/benzodiazepine/Flexeril/Phenergan) 1. You have been prescribed narcotic medications, it does have acetaminophen/Tylenol/paracetamol in it, DO NOT TAKE MORE THAN 4,00mg in 24 hours of Tylenol. TRAMADOL DOES NOT CONTAIN TYLENOL 2. Please understand that we cannot provide further refills of narcotics, benzodiazepines or controlled substances through the ED and her pain management will need to be through your provider. 3. While on these medications you cannot drive or operate heavy machinery. 4. You cannot sign legal documents or perform any duties such as this. 5. As long as you're taking opiate pain medications he should also be taking a stool softener such as Colace, Dulcolax, MiraLAX or prune juice, to help avoid constipation. Prescriptions: New oxycodone-acetaminophen [Percocet] 5-325 mg tablet 1 tab PO Q6H PRN (Reason: pain) Qty: 10 0RF No Action insulin lispro [Humalog U-100 Insulin] 100 UNIT/1 ML solution See Rx Instructions .ROUTE .COMPLEX Qty: 0 Rx Instructions: per pump atorvastatin 40 mg tablet 40 mg PO BEDTIME Patient Comments: take 1 tablet by mouth at bedtime /// NEED TO DO LABWORK. mirtazapine 45 mg tablet 45 mg PO BEDTIME duloxetine 30 mg Capsule, Delayed Rel Sprinkle 30 mg PO DAILY meclizine 25 mg tablet,chewable 25 mg PO QID PRN (Reason: vertigo) Qty: 20 0RF Referrals: Dangelo Bowen MD [Primary Care Provider, Internal Medicine] Stand Alone Forms: Patient Portal/API
[2025-03-17 12:30] LABS: Add Manual Diff / Slide Review NO; Hematocrit 41.0 % (41-53); Hemoglobin 14.0 g/dL (13.5-17.5); Lymphocytes Absolute Auto 700 /uL (1100-4500); Mean Corpuscular HGB Conc 34.1 % (30-36); Mean Corpuscular Hemoglobin 30.0 PG (26-34); Mean Corpuscular Volume 88.0 fL (80-100); Platelet Count 177 X10^3/uL (150-400)
[2025-03-17] MEDS: SODIUM CHLORIDE 0.9% 1,000 ML 1000 ML IV (12:38)
[2025-03-17] MEDS: cefTRIAXone 2,000 MG in SODIUM CHLORIDE 0.9% 100 ML 200 MG IV (12:38)
[2025-03-17 12:44] LABS: INR 1.0 (0.9-1.3); Prothrombin Time 11.0 SECONDS (9.4-12.5)
[2025-03-17 12:45] LABS: PTT Partial Thromboplastin Tim 23 SECONDS (25.1-36.5)
[2025-03-17 12:50] LABS: Alanine Aminotransferase 21 IU/L (<50); Albumin 3.9 g/dL (3.5-5.0); Albumin Globulin Ratio 1.6 (1.0-2.8); Alkaline Phosphatase 70 U/L (38-126); Blood Urea Nitrogen 34 mg/dL (9-20); Calcium 9.1 mg/dL (8.4-10.2); Carbon Dioxide 18 mmol/L (22-32); Chloride 98 mmol/L (98-107); Estimated Glomerular Filt Rate > 60 mL/min (>60); Globulin 2.5 g/dL (1.7-4.1); HEMOLYSIS < 15 (0-50); Potassium 4.3 mmol/L (3.4-5.1); Sodium 129 mmol/L (137-145); Total Protein 6.4 g/dL (6.3-8.2)
[2025-03-17 12:53] LABS: Glucose 552 mg/dL (70-99); Lactate (Lactic Acid) 2.0 mmol/L (0.7-2.1)
[2025-03-17 13:03] LABS: Procalcitonin 0.073 ng/mL (<0.5)
[2025-03-17 14:06] LABS: Hemoglobin A1C% w Est Avg Glu 11.2 % (4.0-6.0)
== END 2025-03-17 18:10 | disposition home or self-care (01) ==
PROVIDERS: Emergency Provider Emergency Medicine; PCP Internal Medicine
DX: M54.50 Low back pain, unspecified (principal); G89.29 Other chronic pain; E11.65 Type 2 diabetes mellitus with hyperglycemia; R53.1 Weakness; R32 Unspecified urinary incontinence; I95.9 Hypotension, unspecified; R20.0 Anesthesia of skin; M48.56XD Collapsed vertebra, not elsewhere classified, lumbar region, subsequent encounter for fracture with routine healing; Z79.4 Long term (current) use of insulin
CPT/HCPCS: 36415; 72157; 72158; 80053; 83036; 83605; 84145; 85025; 85610; 85651; 85730; 86140; 87040; 93005; 96365; 96375; 99284; A9579; J0696; J2060; J7030; J7050